=== PATIENT | male | born 1950 | race Caucasian/White ===

== ENCOUNTER 2018-01-22 15:44 | Emergency (ER) | payer MEDICARE, BC ==
[~2018-01-22] VITALS: Ht 180.3 cm; Wt 86.2 kg
[~2018-01-22 15:44] MED LIST: ASPI-630 PO; ATOR40TA59 PO; BENA10TA4 PO; CYCL10TA2 PO; DOCU-109 PO; HYDR-2679 PO; INSU100C SQ; INSU100V8 SQ; METF500T16 PO; METO-239 PO; METO-269 PO; OMEG300C PO; RIVA20TA2 PO; SAXA5TAB PO
[2018-01-22] MEDS ORDERED: LIDOCAINE 1% PF 2 ML VIAL. INJ ONE (16:30)
[2018-01-22] MEDS ORDERED: cefTRIAXone IM 1 GM VIAL IM ONE (16:30)
--- NOTE | 2018-01-22 16:52 | PHYS DOC ---
Past Medical History Past Medical History: A-Fib, CAD, Diabetes-Type II, High Cholesterol, Hypertension, Other Additional Past Medical Histor: DDD Past Surgical History: Coronary Bypass Surgery, Other Additional Past Surgical Histo: CARDIAC STENTS 2007 Alcohol Use: None Drug Use: None Adult General Chief Complaint Chief Complaint: HAND PROBLEM HPI HPI Patient is a 67 year old male with history of A. fib, hypertension, COPD, diabetes type 2, who presents today with infection along the right thumb. Patient states 3 weeks ago he caught his right hand in a marlene trap. He states he was seen at urgent care after the incident and was given a tetanus shot. He states yesterday he noted redness along his right thumb. Patient states the area is warm. Denies any drainage from the area. Patient is left-handed. Review of Systems Review of Systems Constitutional: Denies fever or chills [] Eyes: Denies change in visual acuity, redness, or eye pain [] HENT: Denies nasal congestion or sore throat [] Respiratory: Denies cough or shortness of breath [] Cardiovascular: No additional information not addressed in HPI [] GI: Denies abdominal pain, nausea, vomiting, bloody stools or diarrhea [] : Denies dysuria or hematuria [] Musculoskeletal: Denies back pain or joint pain [] Integument: Denies rash or skin lesions [] Neurologic: Denies headache, focal weakness or sensory changes [] Endocrine: Denies polyuria or polydipsia [] All other systems were reviewed and found to be within normal limits, except as documented in this note. Current Medications Current Medications Current Medications Medications (Trade) Dose Ordered Sig/Mega Start Time Stop Time Status Last Admin Dose Admin Ceftriaxone Sodium (Rocephin Im) 1 gm 1X ONCE 01/22/18 16:30 01/22/18 16:31 DC 01/22/18 16:35 1 GM Lidocaine HCl (Xylocaine-Mpf 1% 2ml Vial) 2 ml 1X ONCE 01/22/18 16:30 01/22/18 16:31 DC 01/22/18 16:35 2 ML Allergies Allergies Allergies Coded Allergies Type Severity Reaction Last Updated Verified I S O L A T I O N *CONTACT* Allergy Unknown 02/27/16 Yes No Known Medication Allergies Allergy Unknown 02/27/16 Yes Physical Exam Physical Exam Constitutional: Well developed, well nourished, no acute distress, non-toxic appearance. [] HENT: Normocephalic, atraumatic, bilateral external ears normal, oropharynx moist, no oral exudates, nose normal. [] Eyes: PERRLA, EOMI, conjunctiva normal, no discharge. [] Neck: Normal range of motion, no tenderness, supple, no stridor. [] Cardiovascular:Heart rate regular rhythm, no murmur [] Lungs & Thorax: Bilateral breath sounds clear to auscultation [] Abdomen: Bowel sounds normal, soft, no tenderness, no masses, no pulsatile masses. [] Skin: Right lateral thumb with mild cellulitis especially mid for next. There is a couple bruised areas on the lateral aspect of the thumb that are likely the source of cellulitis. Patient has full range of motion to the right thumb including flexion and extension at all the joints. The area feels warm. There is no abscess/fluctuance to the area. Adequate radial sensation to the right thumb. +2 right radial pulse. Back: No tenderness, no CVA tenderness. [] Extremities: No tenderness, no cyanosis, no clubbing, ROM intact, no edema. [] Neurologic: Alert and oriented X 3, normal motor function, normal sensory function, no focal deficits noted. [] Psychologic: Affect normal, judgement normal, mood normal. [] Current Patient Data Vital Signs Vital Signs Date Time Temp Pulse Resp B/P (MAP) Pulse Ox O2 Delivery O2 Flow Rate FiO2 01/22/18 17:10 101 20 164/100 (121) 99 01/22/18 15:58 98.2 Room Air 98.2 EKG EKG [] Radiology/Procedures Radiology/Procedures []PROCEDURE: HAND RIGHT 3V Examination: 3 views of the right hand HISTORY: History of cellulitis in the thumb COMPARISON: None available FINDINGS: The alignment of the metacarpophalangeal joints, carpometacarpal joint, interphalangeal joints grossly appears unremarkable. There is no acute fracture or dislocation identified. IMPRESSION: No acute osseous findings. Electronically signed by: Van Ji MD (01/22/2018 5:00 PM) [facility] DICTATED and SIGNED BY: VAN JI MD DATE: 01/22/18 8167 Course & Med Decision Making Course & Med Decision Making Pertinent Labs and Imaging studies reviewed. (See chart for details) This is a 67-year-old male patient presenting to the ED with a cellulitis along his right thumb that began yesterday. 3 weeks ago patient got his right hand caught in mole trap. He was seen at urgent care and given antibiotics. Vitals on arrival blood pressure 181/94, patient has history of hypertension, reminded to make sure she is taking his medications, temp 98.2, heart rate 99, O2 sats 100% on room air. Right hand x-rays interpreted by radiologist are negative for any acute findings. Patient is afebrile in the ED. He was given Rocephin 1 g. Patient was discharged on clindamycin. Instructed to keep the area clean and dry. Follow-up with PCP in 1-2 weeks. Dragon Disclaimer Dragon Disclaimer This electronic medical record was generated, in whole or in part, using a voice recognition dictation system. Departure Departure Impression: Primary Impression: Cellulitis of finger of right hand Additional Impression: Accelerated hypertension Disposition: 01 HOME, SELF-CARE Condition: STABLE Referrals: YANDY GUERRERO Jr, MD (PCP) Follow-up with your doctor in 1-2 weeks Patient Instructions: Cellulitis, [id number], Hypertension Additional Instructions: You were evaluated in the emergency room as noted to have cellulitis of the right hand. We put you on antibiotics. Ensure you complete them. Ensure you take your antibiotics to completion. Ensure you are talking antibiotics. Scripts Clindamycin Hcl (CLINDAMYCIN HCL) 150 Mg Capsule 3 CAP PO TID, #90 CAP Prov: ANGELITO MESA APRN 01/22/18 Problem Qualifiers ANGELITO MESA APRN Jan 22, 2018 16:52
--- NOTE | 2018-01-22 17:04 | RAD ---
Examination: 3 views of the right hand HISTORY: History of cellulitis in the thumb COMPARISON: None available FINDINGS: The alignment of the metacarpophalangeal joints, carpometacarpal joint, interphalangeal joints grossly appears unremarkable. There is no acute fracture or dislocation identified. IMPRESSION: No acute osseous findings. Electronically signed by: Van Ji MD (01/22/2018 5:00 PM) [facility]
[2018-01-22 17:10] VITALS: BP 164/100
[2018-01-22] MEDS ORDERED: CLIN150C14 PO (17:14)
== END 2018-01-22 17:45 | disposition home or self-care (01) ==
LOC: ER 15:44
DX: L03.011 Cellulitis of right finger (principal); I10 Essential (primary) hypertension; I48.91 Unspecified atrial fibrillation; I25.10 Atherosclerotic heart disease of native coronary artery without angina pectoris; E78.00 Pure hypercholesterolemia, unspecified; E11.9 Type 2 diabetes mellitus without complications; Z95.5 Presence of coronary angioplasty implant and graft; Z95.1 Presence of aortocoronary bypass graft; Z91.041 Radiographic dye allergy status
CPT/HCPCS: 73130; 96372; 99284; J0696

== ENCOUNTER → 2018-04-12 | Outpatient (CLI) | payer BC, MEDICARE ==
[~2018-04-12] MED LIST changes: +CLIN150C14 PO
--- NOTE | 2018-04-12 14:49 | CARD ---
MR#: [id number] Date of Study: 04/12/2018 Ordering Physician: TONYA SANTOYO, Referring Physician: TONYA SANTOYO, Tech: Elizabeth Wilson [facility] APPROVED REPORT EXAM: Two-dimensional and M-mode echocardiogram with Doppler and color Doppler. Other Information Quality : AverageHR: 85bpm Rhythm : Atrial Fibrillation INDICATION Cardiomyopathy 2D DIMENSIONS RVDd3.3 (2.9-3.5cm)Left Atrium(2D)4.5 (1.6-4.0cm) IVSd1.6 (0.7-1.1cm)Aortic Root(2D)3.1 (2.0-3.7cm) LVDd4.5 (3.9-5.9cm)LVOT Diameter2.0 (1.8-2.4cm) PWd1.0 (0.7-1.1cm)LVDs3.3 (2.5-4.0cm) FS (%) 26.0 %SV47.3 ml LVEF(%)50.0 (>50%) M-Mode DIMENSIONS Left Atrium(MM)5.04 (2.5-4.0cm)Aortic Root3.49 (2.2-3.7cm) Aortic Valve AoV Peak Bossman.137.5cm/sAoV VTI25.0cm AO Peak GR.7.6mmHgLVOT Peak Bossman.79.5cm/s AO Mean GR.4mmHgAVA (VMAX)1.87cm2 HUMZA (VTI)1.90cm2 Mitral Valve MV E Fxruapft760.5cm/sMV DECEL WAAU892in MV A Zjkqhpmg08.4cm/sE/A Ratio4.3 MV A Uzuhnpht203ol Pulmonary Valve PV Peak Izhefsba79.2cm/s Tricuspid Valve TR P. Ndlbwvpk311uy/sRAP QSMHWOCX2nhUo TR Peak Gr.51yjClWENX30qkBz LEFT VENTRICLE The left ventricle is normal size. Proximal septal thickening is noted. Left ventricle systolic funct ion is mildly impaired. The Ejection Fraction is 45%. RIGHT VENTRICLE The right ventricle is mildly dilated. There is normal right ventricular wall thickness. Systolic fun ction is mildly reduced. ATRIA The left atrium is moderately dilated. The right atrium is moderately dilated. The interatrial septum is intact with no evidence for an atrial septal defect or patent foramen ovale as noted on 2-D or Do ppler imaging. AORTIC VALVE The aortic valve is calcified but opens well. The aortic valve is trileaflet. Doppler and Color Flow revealed no significant aortic regurgitation. There is no significant aortic valvular stenosis. MITRAL VALVE The mitral valve is normal in structure and function. There is no evidence of mitral valve prolapse. There is no mitral valve stenosis. Doppler and Color-flow revealed trace mitral regurgitation. TRICUSPID VALVE The tricuspid valve is normal in structure and function. Doppler and Color Flow revealed trace tricus pid regurgitation. The PA pressure was estimated at 24 mmHg. There is no tricuspid valve prolapse or vegetation. There is no tricuspid valve stenosis. PULMONIC VALVE Pulmonic valve not well visualized. Doppler and Color Flow revealed no pulmonic valvular regurgitatio n. There is no pulmonic valvular stenosis. GREAT VESSELS The aortic root is normal in size. The ascending aorta is normal in size. The IVC is normal in size a nd collapses >50% with inspiration. PERICARDIAL EFFUSION There is no evidence of significant pericardial effusion. Critical Notification Critical Value: No <Conclusion> Left ventricle systolic function is mildly impaired. The Ejection Fraction is 45%. The left atrium is moderately dilated. Trace mitral regurgitation. Trace tricuspid regurgitation. The PA pressure was estimated at 24 mmHg. There is no evidence of significant pericardial effusion. Signed by : Pawan Keith, Electronically Approved : 04/12/2018 14:47:23
== END | disposition home or self-care (01) ==
LOC: ECHO 13:34
PROVIDERS: ATTEND Internal Medicine Cardiovascular Disease
DX: I25.5 Ischemic cardiomyopathy (principal)
CPT/HCPCS: 93306

== ENCOUNTER 2018-08-23 17:15 | Inpatient (IN) | payer MEDICARE ==
[~2018-08-23] VITALS: Ht 180.3 cm; Wt 91.3 kg
[2018-08-23] MEDS ORDERED: dilTIAZem IV PUSH 25 MG/5 ML VIAL ONE (19:18)
--- NOTE | 2018-08-23 19:27 | PHYS DOC ---
Past Medical History Past Medical History: A-Fib, CAD, Diabetes-Type II, High Cholesterol, Hypertension, Other Additional Past Medical Histor: DDD (CIRO TITUS APRN) Past Surgical History: Coronary Bypass Surgery, Tonsillectomy, Other Additional Past Surgical Histo: CARDIAC STENTS 2008, BACK SURGERY (CIRO TITUS APRN) Alcohol Use: Sober Drug Use: None (CIRO TITUS APRN) Adult General Chief Complaint Chief Complaint: DYSPNEA/RESPIRATOY DISTRESS HPI HPI 67-year-old male presents to ER via POV for complaints of sudden onset of tremors and feeling shaky and fatigued. Patient states he has felt short of air over the past few days with any type of exertion. Patient is denying any chest pain or palpitations currently. He reports over past few days he has had some rt side rib pain radiating into rt side chest. Patient denies any recent illness. Patient states he has had a triple bypass and he is on daily Xarelto and baby aspirin. Patient states he does have history of A. fib. Pt's accu check at triage was 85. (CIRO TITUS APRN) Review of Systems Review of Systems Constitutional: Denies fever or chills [] Eyes: Denies change in visual acuity, redness, or eye pain [] HENT: Denies nasal congestion or sore throat [] Respiratory: Denies cough. Reports SOA which has been gradually worsening- increases with exertion Cardiovascular: Denies CP currently- states over past few days has had some rt rib pain radiating into rt side chest. Denies palpitations GI: Denies abdominal pain, nausea, vomiting, bloody stools or diarrhea [] : Denies dysuria or hematuria [] Musculoskeletal: Denies back/neck pain or joint pain [] Integument: Denies rash or skin lesions [] Neurologic: Denies headache, focal weakness or sensory changes. Reports he has tremors however tonight has increased uncontrollable tremors in upper extremities Endocrine: Denies polyuria or polydipsia [] All other systems were reviewed and found to be within normal limits, except as documented in this note. (CIRO TITUS APRN) Current Medications Current Medications Current Medications Medications (Trade) Dose Ordered Sig/Mega Start Time Stop Time Status Last Admin Dose Admin Diltiazem HCl (Cardizem Iv Push) 25 mg STK-MED ONCE 08/23/18 19:18 08/23/18 19:19 DC Diltiazem HCl 125 mg/Dextrose 125 ml @ 5 mls/hr CONT PRN 08/23/18 19:30 08/24/18 09:13 DC (KARLA TRACEY MD) Allergies Allergies Allergies Coded Allergies Type Severity Reaction Last Updated Verified I S O L A T I O N *CONTACT* Allergy Unknown 02/27/16 Yes No Known Medication Allergies Allergy Unknown 02/27/16 Yes (KARLA TRACEY MD) Physical Exam Physical Exam Constitutional: Well developed, well nourished, mild distress- pt appears anxious/tense and has tremors in upper extremities, non-toxic appearance. [] HENT: Normocephalic, atraumatic, oropharynx moist, no oral exudates, nose normal. [] Eyes: PERRLA, no nystagmus, conjunctiva normal, no discharge. [] Neck: Normal range of motion, no tenderness/crepitus, supple, no stridor. Trachea midline Cardiovascular: Tachycardic heart rate irregular rhythm, no murmur [] Lungs & Thorax: Bilateral breath sounds clear to auscultation- less air movement in bases. Resp. equal/nonlabored. Pt speaking in full sentences Abdomen: Bowel sounds normal, soft, no tenderness/rigidity/distention, no masses, no pulsatile masses. [] Skin: Warm, dry, no erythema, no rash. [] Back: No tenderness, no CVA tenderness. [] Extremities: No tenderness, no cyanosis, no clubbing, ROM intact, no edema. 2+ bilat. radial. 2+ bilat. dorsalis pedis/posterior tibial Neurologic: Alert and oriented X 3, normal motor function, normal sensory function, no focal deficits noted. Bilat. upper extremity tremors- no contractions in hands or skin discoloration Psychologic: Affect normal, judgement normal, appears anxious/tense (REFFITTCIRO APRN) Current Patient Data Vital Signs Vital Signs Date Time Temp Pulse Resp B/P (MAP) Pulse Ox O2 Delivery O2 Flow Rate FiO2 08/23/18 18:41 97.8 119 20 199/87 (124) 95 Room Air 97.8 (KARLA TRACEY MD) Lab Values Laboratory Tests Test 08/23/18 17:41 08/23/18 18:20 Glucose (Fingerstick) 85 mg/dL (70-99) Prothrombin Time 21.0 SEC (11.7-14.0) H Prothrombin Time INR 1.8 (0.8-1.1) H PTT 36 SEC (24-38) Sodium Level 139 mmol/L (136-145) Potassium Level 3.8 mmol/L (3.5-5.1) Chloride Level 104 mmol/L (98-107) Carbon Dioxide Level 27 mmol/L (21-32) Anion Gap 8 (6-14) Blood Urea Nitrogen 22 mg/dL (8-26) Creatinine 1.0 mg/dL (0.7-1.3) Estimated GFR (Cockcroft-Gault) 74.5 BUN/Creatinine Ratio 22 (6-20) H Glucose Level 93 mg/dL (70-99) Calcium Level 9.3 mg/dL (8.5-10.1) Total Bilirubin 0.8 mg/dL (0.2-1.0) Aspartate Amino Transferase (AST) 24 U/L (15-37) Alanine Aminotransferase (ALT) 16 U/L (16-63) Alkaline Phosphatase 142 U/L (46-116) H Troponin I Quantitative 0.043 ng/mL (0.000-0.055) LT-Bgs-W-Type Natriuretic Peptide 3906 pg/mL (0-124) H Total Protein 7.4 g/dL (6.4-8.2) Albumin 3.7 g/dL (3.4-5.0) Albumin/Globulin Ratio 1.0 (1.0-1.7) Laboratory Tests 08/23/18 18:20 (KARLA TRACEY MD) Lab Values Laboratory Tests Test 08/23/18 17:41 08/23/18 18:20 Glucose (Fingerstick) 85 mg/dL (70-99) Prothrombin Time 21.0 SEC (11.7-14.0) H Prothrombin Time INR 1.8 (0.8-1.1) H PTT 36 SEC (24-38) Sodium Level 139 mmol/L (136-145) Potassium Level 3.8 mmol/L (3.5-5.1) Chloride Level 104 mmol/L (98-107) Carbon Dioxide Level 27 mmol/L (21-32) Anion Gap 8 (6-14) Blood Urea Nitrogen 22 mg/dL (8-26) Creatinine 1.0 mg/dL (0.7-1.3) Estimated GFR (Cockcroft-Gault) 74.5 BUN/Creatinine Ratio 22 (6-20) H Glucose Level 93 mg/dL (70-99) Calcium Level 9.3 mg/dL (8.5-10.1) Total Bilirubin 0.8 mg/dL (0.2-1.0) Aspartate Amino Transferase (AST) 24 U/L (15-37) Alanine Aminotransferase (ALT) 16 U/L (16-63) Alkaline Phosphatase 142 U/L (46-116) H Troponin I Quantitative 0.043 ng/mL (0.000-0.055) ZP-Pxg-X-Type Natriuretic Peptide 3906 pg/mL (0-124) H Total Protein 7.4 g/dL (6.4-8.2) Albumin 3.7 g/dL (3.4-5.0) Albumin/Globulin Ratio 1.0 (1.0-1.7) Laboratory Tests 08/23/18 18:20 (CIRO TITUS APRN) EKG EKG EKG obtained 08/23/18 at [address] Tracey Afib w/RVR Rate 127 No STEMI (CIRO TITUS APRN) Course & Med Decision Making Course & Med Decision Making Pertinent Labs and Imaging studies reviewed. (See chart for details) 1920: Heart rate 130s to 140s with blood pressure 225/96. Patient's case and plan of care was discussed with Dr. Tracey. Patient will receive IV Cardizem bolus 10 mg and be started on Cardizem drip per protocol. Patient has continued to deny any chest pain. Test results were discussed pt and his - EKG with no acute ST elevation/STEMI and troponin 0.043; BNP up at 3906. H&H 8.1/27.9- pt denying any dark tarry or bloody stools. Dr. Tracey viewed pt's chest xray possible sm. bilat. effusions otherwise no other obvious acute findings. 2030: Spoke with Dr. Ruiz, hospitalist and discussed patient's case and admit plan. Will admit to their services for further care and consult cardiology with admit orders. Discussed admission plan and test results with patient and his family. Patient continues to deny any chest pain or palpitations. Heart rate improved to 88-100 remains irregular- remains on Cardizem drip with blood pressure 176/77 O2 saturation 97%. Patient is denying any shortness of air. Pt's shakes have subsided and he is in no distress with family at bedside. Patient is agreeable with admit plan as discussed. (CIRO TITUS APRN) Course & Med Decision Making Staff Physician Addendum: I was working in the ER during the course of this patient's visit. I was available for consultation as needed, but I was not directly involved in the care of this patient. (KARLA TRACEY MD) Dragon Disclaimer Dragon Disclaimer This electronic medical record was generated, in whole or in part, using a voice recognition dictation system. (CIRO TITUS APRN) Departure Departure Impression: Primary Impression: Atrial fibrillation with RVR Additional Impression: Dyspnea Disposition: 09 ADMITTED INPATIENT Admitting Physician: Margie Ruiz (CIRO TITUS APRN) Condition: STABLE Referrals: BERE BALLARD MD (PCP) Scripts Potassium Chloride (POTASSIUM CHLORIDE) 20 Meq Tablet.er 20 MEQ PO DAILY for CHF for 30 Days, #30 TAB.SR Prov: DINORAH DIALLO MD 08/27/18 Furosemide (LASIX) 40 Mg Tablet 1 TAB PO DAILY for CHF for 30 Days, #30 TAB 1 Refill Prov: DINORAH DIALLO MD 08/27/18 Metformin Hcl (GLUCOPHAGE XR) 500 Mg Tab.er.24h 1000 MG PO HS for DM2 for 30 Days, #60 TAB.SR Prov: DINORAH DIALLO MD 08/27/18 Metoprolol Succinate (TOPROL XL) 50 Mg Tab.er.24h 75 MG PO DAILY for htn for 30 Days, #45 TAB 5 Refills Prov: DINORAH DIALLO MD 08/27/18 Problem Qualifiers CIRO TITUS APRN Aug 23, 2018 19:27 KARLA TRACEY MD September 04, 2018 23:43
[2018-08-23] MEDS ORDERED: dilTIAZem INJ 125 MG in IV DEXTROSE 5% 100ML 100 ML IV PRN (19:30)
[2018-08-23 19:31] LABS: ALBUMIN 3.7 g/dL (3.4-5.0); CALCIUM 9.3 mg/dL (8.5-10.1); TOTAL PROTEIN 7.4 g/dL (6.4-8.2)
[2018-08-23 19:32] LABS: GFR 74.5; POTASSIUM 3.8 mmol/L (3.5-5.1); TOTAL BILIRUBIN 0.8 mg/dL (0.2-1.0)
[2018-08-23] MEDS ORDERED: dilTIAZem IV PUSH 25 MG/5 ML VIAL IVP ONE (19:45)
[2018-08-23 20:51] LABS: BASO # 0.1 x10^3/uL (0.0-0.2); BASO % 1 % (0-3); EOS % 0 % (0-3); HEMATOCRIT 27.9 % (39.0-53.0); HEMOGLOBIN 8.1 g/dL (13.0-17.5); LYMPH # 0.5 x10^3/uL (1.0-4.8); LYMPH % 6 % (24-48); MEAN CORPUSCULAR HEMOGLOBIN 19 pg (25-35); MEAN CORPUSCULAR HGB CONC 29 g/dL (31-37); MEAN CORPUSCULAR VOLUME 65 fL (79-100); MONO # 0.4 x10^3/uL (0.0-1.1); MONO % 5 % (0-9); NEUT # 7.2 x10^3uL (1.8-7.7); NEUT % 88 % (31-73); PLATELET COUNT 260 x10^3/uL (140-400); RED BLOOD COUNT 4.26 x10^6/uL (4.30-5.70); RED CELL DISTRIBUTION WIDTH 18.1 % (11.5-14.5); WHITE BLOOD COUNT 8.2 x10^3/uL (4.0-11.0)
[2018-08-23 21:39] LABS: % LYMPHS 4 % (24-48); % MONOS 3 % (0-10); % SEGS 93 % (35-66); PLT ESTIMATE ADEQUATE (ADEQUATE)
[2018-08-23 21:41] LABS: ANISOCYTOSIS SLIGHT; MICROCYTOSIS MOD
[2018-08-23 21:42] LABS: HYPOCHROMIA SLIGHT
--- NOTE | 2018-08-23 22:00 | NUR ---
Pt was admitted from ER with c/o SOB x 2 days, when to urgent care and was instructed to come to the hospital. Pt is A/Ox4, on RA, up with standby r/t IV cardizem gtt. Pt is AFIB, rate controlled on telemetry, currently has cardizem gtt running at 10 ml/hr, will titrate r/t b/p response. Linnea at bedside, med rec and H&P completed, Dr. Ruiz at bedside, POC d/w with pt, meds restarted, call light within reach, be in low/locked position, VSS, will continue to monitor for status changes.
[2018-08-23 22:30] VITALS: BP 153/75
[2018-08-23 23:00] VITALS: BP 159/80
--- NOTE | 2018-08-23 23:07 | PDOC1 ---
History and Physical Date of Admission Date of Admission DATE: 08/23/18 TIME: 23:04 Source Source: Chart review, Patient History of Present Illness History of Present Illness Reed is a 67-year-old male admit for worsening shortnessof breath over days, and he was markedly weak and shaky today. noted dyspnea with activity for almost a week. Patient is denying any chest pain or palpitations. Patient denies any recent illness. Patient states he does have history of A. fib. he has a new primary care that he cannot recall tonight he is retired from working at [employer] for over 10 years Social History Smoke: No ALCOHOL: none Current Problem List Problem List Problems Medical Problems: (1) Atrial fibrillation with RVR Status: Acute (2) Dyspnea Status: Acute Current Medications Current Medications Current Medications Diltiazem HCl (Cardizem Iv Push) 10 mg 1X ONCE IVP ; Start 08/23/18 at 19:45; Stop 08/23/18 at 19:46; Status DC Diltiazem HCl 125 mg/Dextrose 125 ml @ 5 mls/hr CONT PRN IV SEE I/O RECORD; Start 08/23/18 at 19:30 Diltiazem HCl (Cardizem Iv Push) 25 mg STK-MED ONCE .ROUTE ; Start 08/23/18 at 19:18; Stop 08/23/18 at 19:19; Status DC Diltiazem HCl (Cardizem) 60 mg Q8HRS PO ; Start 08/23/18 at 23:15; Status UNV Active Scripts Active Clindamycin Hcl 150 Mg Capsule 3 Cap PO TID Cyclobenzaprine Hcl 10 Mg Tablet 10 Mg PO TID Colace (Docusate Sodium) 100 Mg Capsule 100 Mg PO BID Lortab 7.5-325 mg Tablet (Hydrocodone/Acetaminophen) 1 Each Tablet 1 Tab PO PRN Q6HRS PRN Reported Metformin Hcl 500 Mg Tablet 1 Tab PO BID Fish Oil ([place]-3 Fatty Acids) 300 Mg Capsule 1,200 Mg PO Aspirin 81 Mg Tab.chew 81 Mg PO DAILY Xarelto (Rivaroxaban) 20 Mg Tablet 15 Mg PO Benazepril Hcl 10 Mg Tablet 10 Mg PO DAILY Toprol Xl (Metoprolol Succinate) 50 Mg Tab.er.24h 50 Mg PO BID Atorvastatin Calcium 40 Mg Tablet 40 Mg PO DAILY Humalog (Insulin Lispro) 100 Unit/1 Ml Cartridge 20 Unit SQ TID Allergies Allergies: Coded Allergies: I S O L A T I O N *CONTACT* (Verified Allergy, Unknown, 02/27/16) mrsa No Known Medication Allergies (Verified Allergy, Unknown, 02/27/16) ROS General: YES: Fatigue, Malaise; No: Chills, Night Sweats, Appetite, Other PSYCHOLOGICAL ROS: No: Anxiety, Behavioral Disorder, Concentration difficultie, Decreased libido, Depression, Disorientation, Hallucinations, Hostility, Irritablity, Memory difficulties, Mood Swings, Obsessive thoughts, Suicidal ideation, Other Eyes: No Blurry vision, No Decreased vision, No Double vision, No Dry eyes, No Excessive tearing, No Eye Pain, No Itchy Eyes, No Loss of vision, No Photophobia, No Scotomata, No Uses contacts, No Uses glasses, No Other HEENT: No: Heacaches, Visual Changes, Hearing change, Nasal congestion, Nasal discharge, Oral lesions, Sinus pain, Sore Throat, Epistaxis, Sneezing, Snoring, Tinnitus, Vertigo, Vocal changes, Other Respiratory: YES: Shortness of breath, SOB with excertion; No: Cough, Hemoptysis, Orthopnea, Pleuritic Pain, Sputum Changes, Stridor, Tachypnea, Wheezing, Other Cardiovascular: No Chest Pain, No Palpitations, No Orthopnea, No Paroxysmal Noc. Dyspnea, No Edema, No Lt Headedness, No Other Gastrointestinal: No Nausea, No Vomiting, No Abdominal Pain, No Diarrhea, No Constipation, No Melena, No Hematochezia, No Other Genitourinary: No Dysuria, No Frequency, No Incontinence, No Hematuria, No Retention, No Discharge, No Urgency, No Pain, No Flank Pain, No Other, No , No , No , No , No , No , No Musculoskeletal: Yes Muscular Weakness; No Gait Disturbance, No Joint Pain, No Joint Stiffness, No Joint Swelling, No Muscle Pain, No Pain In:, No Swelling In:, No Other Neurological: No Behavorial Changes, No Bowel/Bladder ControlChng, No Co nfusion, No Dizziness, No Gait Disturbance, No Headaches, No Impaired Coord/balance, No Memory Loss, No Numbness/Tingling, No Seizures, No Speech Problems, No Tremors, No Visual Changes, No Weakness, No Other Skin: No Dry Skin, No Eczema, No Hair Changes, No Lumps, No Mole Changes, No Mottling, No Nail Changes, No Pruritus, No Rash, No Skin Lesion Changes, No Other, No Acne Physical Exam General: Alert, Cooperative, No acute distress, mild distress HEENT: Atraumatic Lungs: Clear to auscultation Abdomen: Normal bowel sounds Rectal Exam: not examined Extremities: No cyanosis Skin: No significant lesion Neuro: Normal speech, Normal tone Psych/Mental Status: Mood NL Vitals Vitals Vital Signs Date Time Temp Pulse Resp B/P (MAP) Pulse Ox O2 Delivery O2 Flow Rate FiO2 08/23/18 18:41 97.8 119 20 199/87 (124) 95 Room Air 97.8 Labs Labs Laboratory Tests Test 08/23/18 18:20 08/23/18 20:45 08/23/18 22:11 Sodium Level 139 mmol/L (136-145) Potassium Level 3.8 mmol/L (3.5-5.1) Chloride Level 104 mmol/L (98-107) Carbon Dioxide Level 27 mmol/L (21-32) Anion Gap 8 (6-14) Blood Urea Nitrogen 22 mg/dL (8-26) Creatinine 1.0 mg/dL (0.7-1.3) Estimated GFR (Cockcroft-Gault) 74.5 BUN/Creatinine Ratio 22 (6-20) Glucose Level 93 mg/dL (70-99) Calcium Level 9.3 mg/dL (8.5-10.1) Total Bilirubin 0.8 mg/dL (0.2-1.0) Aspartate Amino Transf (AST/SGOT) 24 U/L (15-37) Alanine Aminotransferase (ALT/SGPT) 16 U/L (16-63) Alkaline Phosphatase 142 U/L (46-116) Troponin I Quantitative 0.043 ng/mL (0.000-0.055) PH-Lpo-L-Type Natriuretic Peptide 3906 pg/mL (0-124) Total Protein 7.4 g/dL (6.4-8.2) Albumin 3.7 g/dL (3.4-5.0) Albumin/Globulin Ratio 1.0 (1.0-1.7) White Blood Count 8.2 x10^3/uL (4.0-11.0) Red Blood Count 4.26 x10^6/uL (4.30-5.70) Hemoglobin 8.1 g/dL (13.0-17.5) Hematocrit 27.9 % (39.0-53.0) Mean Corpuscular Volume 65 fL (79-100) Mean Corpuscular Hemoglobin 19 pg (25-35) Mean Corpuscular Hemoglobin Concent 29 g/dL (31-37) Red Cell Distribution Width 18.1 % (11.5-14.5) Platelet Count 260 x10^3/uL (140-400) Neutrophils (%) (Auto) 88 % (31-73) Lymphocytes (%) (Auto) 6 % (24-48) Monocytes (%) (Auto) 5 % (0-9) Eosinophils (%) (Auto) 0 % (0-3) Basophils (%) (Auto) 1 % (0-3) Neutrophils # (Auto) 7.2 x10^3uL (1.8-7.7) Lymphocytes # (Auto) 0.5 x10^3/uL (1.0-4.8) Monocytes # (Auto) 0.4 x10^3/uL (0.0-1.1) Eosinophils # (Auto) 0.0 x10^3/uL (0.0-0.7) Basophils # (Auto) 0.1 x10^3/uL (0.0-0.2) Segmented Neutrophils % 93 % (35-66) Lymphocytes % 4 % (24-48) Monocytes % 3 % (0-10) Platelet Estimate Adequate (ADEQUATE) Hypochromasia Slight Anisocytosis Slight Microcytosis Mod Glucose (Fingerstick) 148 mg/dL (70-99) Laboratory Tests Test 08/23/18 18:20 08/23/18 20:45 08/23/18 22:11 Sodium Level 139 mmol/L (136-145) Potassium Level 3.8 mmol/L (3.5-5.1) Chloride Level 104 mmol/L (98-107) Carbon Dioxide Level 27 mmol/L (21-32) Anion Gap 8 (6-14) Blood Urea Nitrogen 22 mg/dL (8-26) Creatinine 1.0 mg/dL (0.7-1.3) Estimated GFR (Cockcroft-Gault) 74.5 BUN/Creatinine Ratio 22 (6-20) Glucose Level 93 mg/dL (70-99) Calcium Level 9.3 mg/dL (8.5-10.1) Total Bilirubin 0.8 mg/dL (0.2-1.0) Aspartate Amino Transf (AST/SGOT) 24 U/L (15-37) Alanine Aminotransferase (ALT/SGPT) 16 U/L (16-63) Alkaline Phosphatase 142 U/L (46-116) Troponin I Quantitative 0.043 ng/mL (0.000-0.055) EN-Drr-P-Type Natriuretic Peptide 3906 pg/mL (0-124) Total Protein 7.4 g/dL (6.4-8.2) Albumin 3.7 g/dL (3.4-5.0) Albumin/Globulin Ratio 1.0 (1.0-1.7) White Blood Count 8.2 x10^3/uL (4.0-11.0) Red Blood Count 4.26 x10^6/uL (4.30-5.70) Hemoglobin 8.1 g/dL (13.0-17.5) Hematocrit 27.9 % (39.0-53.0) Mean Corpuscular Volume 65 fL (79-100) Mean Corpuscular Hemoglobin 19 pg (25-35) Mean Corpuscular Hemoglobin Concent 29 g/dL (31-37) Red Cell Distribution Width 18.1 % (11.5-14.5) Platelet Count 260 x10^3/uL (140-400) Neutrophils (%) (Auto) 88 % (31-73) Lymphocytes (%) (Auto) 6 % (24-48) Monocytes (%) (Auto) 5 % (0-9) Eosinophils (%) (Auto) 0 % (0-3) Basophils (%) (Auto) 1 % (0-3) Neutrophils # (Auto) 7.2 x10^3uL (1.8-7.7) Lymphocytes # (Auto) 0.5 x10^3/uL (1.0-4.8) Monocytes # (Auto) 0.4 x10^3/uL (0.0-1.1) Eosinophils # (Auto) 0.0 x10^3/uL (0.0-0.7) Basophils # (Auto) 0.1 x10^3/uL (0.0-0.2) Segmented Neutrophils % 93 % (35-66) Lymphocytes % 4 % (24-48) Monocytes % 3 % (0-10) Platelet Estimate Adequate (ADEQUATE) Hypochromasia Slight Anisocytosis Slight Microcytosis Mod Glucose (Fingerstick) 148 mg/dL (70-99) VTE Prophylaxis Ordered VTE Prophylaxis Devices: No VTE Pharmacological Prophylaxi: Yes Assessment/Plan Assessment/Plan dyspnea on exertion acute diastolic CHF atrial fibrillation with RVR, admit on cardizem gtt, change to PO , CV consult microcytic anemia, check iron, retic, Dm2, check a1c, on insulin UMM BLAIR MD Aug 23, 2018 23:07
[2018-08-23] MEDS ORDERED: HYDROcodone/APAP 7.5/325MG 1 TAB TABLET PO PRN (23:15)
[2018-08-23] MEDS ORDERED: INSU100V8 SQ (23:26)
[2018-08-23] MEDS ORDERED: GABA600T7 PO (23:28)
[2018-08-23 23:30] VITALS: BP 154/71
[2018-08-23] MEDS ORDERED: DABIGATRAN ETEXILATE 150 MG CAPSULE. PO ONE (23:30)
[2018-08-23] MEDS ORDERED: POTASSIUM CHLORIDE 20 MEQ TABLET.ER. PO ONE (23:30)
[2018-08-23] MEDS ORDERED: METOPROLOL TART IMMED RELEASE 50 MG TABLET. PO ONE (23:30)
[2018-08-23] MEDS: dilTIAZem HCL 30 MG TABLET PO SCH (23:53)
[2018-08-24] VITALS (14 sets, daily range): BP systolic 102–162; BP diastolic 52–93
[2018-08-24] MEDS ORDERED: DEXTROSE 50% 25 GM / 50ML DISP.SYRIN. IV PRN (01:30)
[2018-08-24 04:47] LABS: BASO # 0.1 x10^3/uL (0.0-0.2); BASO % 1 % (0-3); EOS # 0.1 x10^3/uL (0.0-0.7); EOS % 2 % (0-3); HEMATOCRIT 27.7 % (39.0-53.0); HEMOGLOBIN 8.2 g/dL (13.0-17.5); LYMPH # 0.6 x10^3/uL (1.0-4.8); LYMPH % 9 % (24-48); MEAN CORPUSCULAR HEMOGLOBIN 19 pg (25-35); MEAN CORPUSCULAR HGB CONC 30 g/dL (31-37); MEAN CORPUSCULAR VOLUME 65 fL (79-100); MONO # 0.6 x10^3/uL (0.0-1.1); MONO % 9 % (0-9); NEUT % 79 % (31-73); PLATELET COUNT 244 x10^3/uL (140-400); RED BLOOD COUNT 4.26 x10^6/uL (4.30-5.70); RED CELL DISTRIBUTION WIDTH 18.8 % (11.5-14.5); WHITE BLOOD COUNT 6.3 x10^3/uL (4.0-11.0)
[2018-08-24 05:48] LABS: ALBUMIN 3.4 g/dL (3.4-5.0); CALCIUM 9.2 mg/dL (8.5-10.1); CREATININE 1.1 mg/dL (0.7-1.3); GFR 66.8; MAGNESIUM 1.9 mg/dL (1.8-2.4); POTASSIUM 4.4 mmol/L (3.5-5.1); TOTAL BILIRUBIN 0.6 mg/dL (0.2-1.0); TOTAL PROTEIN 6.9 g/dL (6.4-8.2)
[2018-08-24] MEDS: dilTIAZem HCL 30 MG TABLET PO SCH (06:00)
--- NOTE | 2018-08-24 07:36 | EKG ---
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 LEFTWARD AXIS QRS(T) CONTOUR ABNORMALITY CONSISTENT WITH POSSIBLE ANTEROSEPTAL INFARCT PROBABLY OLD Electronically Signed On 08-26-2018 9:46:51 CDT by Westley Gandhi
[2018-08-24] MEDS: INSULIN LISPRO 300 UNITS/3 ML INSULN.PEN. SQ SCH ×3 (08:00→17:48)
[2018-08-24] MEDS ORDERED: ONDANSETRON PF 4 MG/2 ML VIAL. IV PRN (08:15)
--- NOTE | 2018-08-24 08:17 | RAD ---
PORTABLE CHEST 1V History: Shortness of air Comparison: January 19, 2009 Findings: Single view of the chest is submitted. Pericardial cardiac silhouette is again enlarged. There again has been median sternotomy, fracture of second wire from superiorly now apparent. There are small pleural effusions bilaterally. There is diffuse hazy airspace opacity of the mid to inferior right hemithorax and right perihilar region, mild left base airspace airspace opacity. Impression: 1. There are small bilateral pleural effusions, also airspace opacity greater on the right with basilar predominance which may be due to edema, infiltrates not excluded. Constellation of findings may be due to left ventricular failure given the enlarged pericardial cardiac silhouette. Electronically signed by: Sukh Cisse MD (08/24/2018 8:14 AM) [id number]
[2018-08-24] MEDS ORDERED: DABIGATRAN ETEXILATE 150 MG CAPSULE. PO SCH (09:00)
[2018-08-24] MEDS ORDERED: METOPROLOL TART IMMED RELEASE 50 MG TABLET. PO SCH (09:00)
[2018-08-24] MEDS ORDERED: METOPROLOL TART IMMED RELEASE 25 MG TABLET. PO SCH (09:00)
[2018-08-24] MEDS ORDERED: METOPROLOL SUCCINATE 100 MG PO SCH (09:00)
[2018-08-24] MEDS: ASPIRIN CHEWABLE 81 MG TABLET. PO SCH (09:10)
[2018-08-24] MEDS: LISINOPRIL 10 MG TABLET PO SCH (09:11)
[2018-08-24] MEDS: OMEGA-3 FATTY ACIDS/FISH OIL 1,000 MG CAPSULE. PO SCH ×2 (09:11→21:37)
--- NOTE | 2018-08-24 09:22 | PDOC ---
PROGRESS NOTES Chief Complaint Chief Complaint Assessment/Plan Dyspnea on exertion - likely acute combined systolic and acute diastolic CHF - lasix IV x1 now Atrial fibrillation with RVR - off cardizem gtt, changed to PO , CV consult Microcytic anemia - iron low, will replace IV, likely needs w/u for GI bleed at some point Dm2 - check a1c, on insulin History of Present Illness History of Present Illness Reed is a 67-year-old male admit for worsening shortness of breath over days, and he was markedly weak and shaky today. noted dyspnea with activity for almost a week. Patient is denying any chest pain or palpitations. Patient denies any recent illness. Patient states he does have history of A. fib and CHF Overnight converted to sinus rhythm. Given oral diltiazem and metoprolol. He was a little short of breath this morning. Feels ok now. Plan: F/u cardiology recs, needs toprol XL or carvedilol for his CHF, will defer to cardiology recs on this Vitals Vitals Vital Signs Date Time Temp Pulse Resp B/P (MAP) Pulse Ox O2 Delivery O2 Flow Rate FiO2 08/24/18 09:11 47 109/57 08/24/18 08:00 Room Air 08/24/18 07:00 97.6 18 100 97.6 Physical Exam General: Alert, Cooperative, No acute distress, mild distress Abdomen: Normal bowel sounds Extremities: No cyanosis Skin: No significant lesion Labs LABS Laboratory Tests Test 08/23/18 18:20 08/23/18 20:45 08/23/18 22:11 08/24/18 03:05 Prothrombin Time 21.0 SEC (11.7-14.0) Prothromb Time International Ratio 1.8 (0.8-1.1) Activated Partial Thromboplast Time 36 SEC (24-38) Sodium Level 139 mmol/L (136-145) 142 mmol/L (136-145) Potassium Level 3.8 mmol/L (3.5-5.1) 4.4 mmol/L (3.5-5.1) Chloride Level 104 mmol/L (98-107) 106 mmol/L (98-107) Carbon Dioxide Level 27 mmol/L (21-32) 27 mmol/L (21-32) Anion Gap 8 (6-14) 9 (6-14) Blood Urea Nitrogen 22 mg/dL (8-26) 21 mg/dL (8-26) Creatinine 1.0 mg/dL (0.7-1.3) 1.1 mg/dL (0.7-1.3) Estimated GFR (Cockcroft-Gault) 74.5 66.8 BUN/Creatinine Ratio 22 (6-20) 19 (6-20) Glucose Level 93 mg/dL (70-99) 183 mg/dL (70-99) Calcium Level 9.3 mg/dL (8.5-10.1) 9.2 mg/dL (8.5-10.1) Total Bilirubin 0.8 mg/dL (0.2-1.0) 0.6 mg/dL (0.2-1.0) Aspartate Amino Transf (AST/SGOT) 24 U/L (15-37) 19 U/L (15-37) Alanine Aminotransferase (ALT/SGPT) 16 U/L (16-63) 20 U/L (16-63) Alkaline Phosphatase 142 U/L (46-116) 135 U/L (46-116) Troponin I Quantitative 0.043 ng/mL (0.000-0.055) FA-Jto-H-Type Natriuretic Peptide 3906 pg/mL (0-124) Total Protein 7.4 g/dL (6.4-8.2) 6.9 g/dL (6.4-8.2) Albumin 3.7 g/dL (3.4-5.0) 3.4 g/dL (3.4-5.0) Albumin/Globulin Ratio 1.0 (1.0-1.7) 1.0 (1.0-1.7) White Blood Count 8.2 x10^3/uL (4.0-11.0) 6.3 x10^3/uL (4.0-11.0) Red Blood Count 4.26 x10^6/uL (4.30-5.70) 4.26 x10^6/uL (4.30-5.70) Hemoglobin 8.1 g/dL (13.0-17.5) 8.2 g/dL (13.0-17.5) Hematocrit 27.9 % (39.0-53.0) 27.7 % (39.0-53.0) Mean Corpuscular Volume 65 fL (79-100) 65 fL (79-100) Mean Corpuscular Hemoglobin 19 pg (25-35) 19 pg (25-35) Mean Corpuscular Hemoglobin Concent 29 g/dL (31-37) 30 g/dL (31-37) Red Cell Distribution Width 18.1 % (11.5-14.5) 18.8 % (11.5-14.5) Platelet Count 260 x10^3/uL (140-400) 244 x10^3/uL (140-400) Neutrophils (%) (Auto) 88 % (31-73) 79 % (31-73) Lymphocytes (%) (Auto) 6 % (24-48) 9 % (24-48) Monocytes (%) (Auto) 5 % (0-9) 9 % (0-9) Eosinophils (%) (Auto) 0 % (0-3) 2 % (0-3) Basophils (%) (Auto) 1 % (0-3) 1 % (0-3) Neutrophils # (Auto) 7.2 x10^3uL (1.8-7.7) 5.0 x10^3uL (1.8-7.7) Lymphocytes # (Auto) 0.5 x10^3/uL (1.0-4.8) 0.6 x10^3/uL (1.0-4.8) Monocytes # (Auto) 0.4 x10^3/uL (0.0-1.1) 0.6 x10^3/uL (0.0-1.1) Eosinophils # (Auto) 0.0 x10^3/uL (0.0-0.7) 0.1 x10^3/uL (0.0-0.7) Basophils # (Auto) 0.1 x10^3/uL (0.0-0.2) 0.1 x10^3/uL (0.0-0.2) Segmented Neutrophils % 93 % (35-66) Lymphocytes % 4 % (24-48) Monocytes % 3 % (0-10) Platelet Estimate Adequate (ADEQUATE) Hypochromasia Slight Anisocytosis Slight Microcytosis Mod Glucose (Fingerstick) 148 mg/dL (70-99) Magnesium Level 1.9 mg/dL (1.8-2.4) Iron Level 9 ug/dL (65-175) Total Iron Binding Capacity 384 ug/dL (250-450) Iron Saturation 2 % (15-34) Thyroid Stimulating Hormone (TSH) 1.067 uIU/mL (0.358-3.74) Assessment and Plan Assessmemt and Plan Problems Medical Problems: (1) Atrial fibrillation with RVR Status: Acute (2) Dyspnea Status: Acute Comment Review of Relevant I have reviewed the following items yamilex (where applicable) has been applied. Labs Laboratory Tests Test 08/23/18 18:20 08/23/18 20:45 08/23/18 22:11 08/24/18 03:05 Prothrombin Time 21.0 SEC (11.7-14.0) Prothromb Time International Ratio 1.8 (0.8-1.1) Activated Partial Thromboplast Time 36 SEC (24-38) Sodium Level 139 mmol/L (136-145) 142 mmol/L (136-145) Potassium Level 3.8 mmol/L (3.5-5.1) 4.4 mmol/L (3.5-5.1) Chloride Level 104 mmol/L (98-107) 106 mmol/L (98-107) Carbon Dioxide Level 27 mmol/L (21-32) 27 mmol/L (21-32) Anion Gap 8 (6-14) 9 (6-14) Blood Urea Nitrogen 22 mg/dL (8-26) 21 mg/dL (8-26) Creatinine 1.0 mg/dL (0.7-1.3) 1.1 mg/dL (0.7-1.3) Estimated GFR (Cockcroft-Gault) 74.5 66.8 BUN/Creatinine Ratio 22 (6-20) 19 (6-20) Glucose Level 93 mg/dL (70-99) 183 mg/dL (70-99) Calcium Level 9.3 mg/dL (8.5-10.1) 9.2 mg/dL (8.5-10.1) Total Bilirubin 0.8 mg/dL (0.2-1.0) 0.6 mg/dL (0.2-1.0) Aspartate Amino Transf (AST/SGOT) 24 U/L (15-37) 19 U/L (15-37) Alanine Aminotransferase (ALT/SGPT) 16 U/L (16-63) 20 U/L (16-63) Alkaline Phosphatase 142 U/L (46-116) 135 U/L (46-116) Troponin I Quantitative 0.043 ng/mL (0.000-0.055) HK-Vlz-P-Type Natriuretic Peptide 3906 pg/mL (0-124) Total Protein 7.4 g/dL (6.4-8.2) 6.9 g/dL (6.4-8.2) Albumin 3.7 g/dL (3.4-5.0) 3.4 g/dL (3.4-5.0) Albumin/Globulin Ratio 1.0 (1.0-1.7) 1.0 (1.0-1.7) White Blood Count 8.2 x10^3/uL (4.0-11.0) 6.3 x10^3/uL (4.0-11.0) Red Blood Count 4.26 x10^6/uL (4.30-5.70) 4.26 x10^6/uL (4.30-5.70) Hemoglobin 8.1 g/dL (13.0-17.5) 8.2 g/dL (13.0-17.5) Hematocrit 27.9 % (39.0-53.0) 27.7 % (39.0-53.0) Mean Corpuscular Volume 65 fL (79-100) 65 fL (79-100) Mean Corpuscular Hemoglobin 19 pg (25-35) 19 pg (25-35) Mean Corpuscular Hemoglobin Concent 29 g/dL (31-37) 30 g/dL (31-37) Red Cell Distribution Width 18.1 % (11.5-14.5) 18.8 % (11.5-14.5) Platelet Count 260 x10^3/uL (140-400) 244 x10^3/uL (140-400) Neutrophils (%) (Auto) 88 % (31-73) 79 % (31-73) Lymphocytes (%) (Auto) 6 % (24-48) 9 % (24-48) Monocytes (%) (Auto) 5 % (0-9) 9 % (0-9) Eosinophils (%) (Auto) 0 % (0-3) 2 % (0-3) Basophils (%) (Auto) 1 % (0-3) 1 % (0-3) Neutrophils # (Auto) 7.2 x10^3uL (1.8-7.7) 5.0 x10^3uL (1.8-7.7) Lymphocytes # (Auto) 0.5 x10^3/uL (1.0-4.8) 0.6 x10^3/uL (1.0-4.8) Monocytes # (Auto) 0.4 x10^3/uL (0.0-1.1) 0.6 x10^3/uL (0.0-1.1) Eosinophils # (Auto) 0.0 x10^3/uL (0.0-0.7) 0.1 x10^3/uL (0.0-0.7) Basophils # (Auto) 0.1 x10^3/uL (0.0-0.2) 0.1 x10^3/uL (0.0-0.2) Segmented Neutrophils % 93 % (35-66) Lymphocytes % 4 % (24-48) Monocytes % 3 % (0-10) Platelet Estimate Adequate (ADEQUATE) Hypochromasia Slight Anisocytosis Slight Microcytosis Mod Glucose (Fingerstick) 148 mg/dL (70-99) Magnesium Level 1.9 mg/dL (1.8-2.4) Iron Level 9 ug/dL (65-175) Total Iron Binding Capacity 384 ug/dL (250-450) Iron Saturation 2 % (15-34) Thyroid Stimulating Hormone (TSH) 1.067 uIU/mL (0.358-3.74) Laboratory Tests Test 08/23/18 18:20 08/23/18 20:45 08/23/18 22:11 08/24/18 03:05 Prothrombin Time 21.0 SEC (11.7-14.0) Prothromb Time International Ratio 1.8 (0.8-1.1) Activated Partial Thromboplast Time 36 SEC (24-38) Sodium Level 139 mmol/L (136-145) 142 mmol/L (136-145) Potassium Level 3.8 mmol/L (3.5-5.1) 4.4 mmol/L (3.5-5.1) Chloride Level 104 mmol/L (98-107) 106 mmol/L (98-107) Carbon Dioxide Level 27 mmol/L (21-32) 27 mmol/L (21-32) Anion Gap 8 (6-14) 9 (6-14) Blood Urea Nitrogen 22 mg/dL (8-26) 21 mg/dL (8-26) Creatinine 1.0 mg/dL (0.7-1.3) 1.1 mg/dL (0.7-1.3) Estimated GFR (Cockcroft-Gault) 74.5 66.8 BUN/Creatinine Ratio 22 (6-20) 19 (6-20) Glucose Level 93 mg/dL (70-99) 183 mg/dL (70-99) Calcium Level 9.3 mg/dL (8.5-10.1) 9.2 mg/dL (8.5-10.1) Total Bilirubin 0.8 mg/dL (0.2-1.0) 0.6 mg/dL (0.2-1.0) Aspartate Amino Transf (AST/SGOT) 24 U/L (15-37) 19 U/L (15-37) Alanine Aminotransferase (ALT/SGPT) 16 U/L (16-63) 20 U/L (16-63) Alkaline Phosphatase 142 U/L (46-116) 135 U/L (46-116) Troponin I Quantitative 0.043 ng/mL (0.000-0.055) TE-Kos-C-Type Natriuretic Peptide 3906 pg/mL (0-124) Total Protein 7.4 g/dL (6.4-8.2) 6.9 g/dL (6.4-8.2) Albumin 3.7 g/dL (3.4-5.0) 3.4 g/dL (3.4-5.0) Albumin/Globulin Ratio 1.0 (1.0-1.7) 1.0 (1.0-1.7) White Blood Count 8.2 x10^3/uL (4.0-11.0) 6.3 x10^3/uL (4.0-11.0) Red Blood Count 4.26 x10^6/uL (4.30-5.70) 4.26 x10^6/uL (4.30-5.70) Hemoglobin 8.1 g/dL (13.0-17.5) 8.2 g/dL (13.0-17.5) Hematocrit 27.9 % (39.0-53.0) 27.7 % (39.0-53.0) Mean Corpuscular Volume 65 fL (79-100) 65 fL (79-100) Mean Corpuscular Hemoglobin 19 pg (25-35) 19 pg (25-35) Mean Corpuscular Hemoglobin Concent 29 g/dL (31-37) 30 g/dL (31-37) Red Cell Distribution Width 18.1 % (11.5-14.5) 18.8 % (11.5-14.5) Platelet Count 260 x10^3/uL (140-400) 244 x10^3/uL (140-400) Neutrophils (%) (Auto) 88 % (31-73) 79 % (31-73) Lymphocytes (%) (Auto) 6 % (24-48) 9 % (24-48) Monocytes (%) (Auto) 5 % (0-9) 9 % (0-9) Eosinophils (%) (Auto) 0 % (0-3) 2 % (0-3) Basophils (%) (Auto) 1 % (0-3) 1 % (0-3) Neutrophils # (Auto) 7.2 x10^3uL (1.8-7.7) 5.0 x10^3uL (1.8-7.7) Lymphocytes # (Auto) 0.5 x10^3/uL (1.0-4.8) 0.6 x10^3/uL (1.0-4.8) Monocytes # (Auto) 0.4 x10^3/uL (0.0-1.1) 0.6 x10^3/uL (0.0-1.1) Eosinophils # (Auto) 0.0 x10^3/uL (0.0-0.7) 0.1 x10^3/uL (0.0-0.7) Basophils # (Auto) 0.1 x10^3/uL (0.0-0.2) 0.1 x10^3/uL (0.0-0.2) Segmented Neutrophils % 93 % (35-66) Lymphocytes % 4 % (24-48) Monocytes % 3 % (0-10) Platelet Estimate Adequate (ADEQUATE) Hypochromasia Slight Anisocytosis Slight Microcytosis Mod Glucose (Fingerstick) 148 mg/dL (70-99) Magnesium Level 1.9 mg/dL (1.8-2.4) Iron Level 9 ug/dL (65-175) Total Iron Binding Capacity 384 ug/dL (250-450) Iron Saturation 2 % (15-34) Thyroid Stimulating Hormone (TSH) 1.067 uIU/mL (0.358-3.74) Medications Current Medications Diltiazem HCl (Cardizem Iv Push) 10 mg 1X ONCE IVP ; Start 08/23/18 at 19:45; Stop 08/23/18 at 19:46; Status DC Diltiazem HCl 125 mg/Dextrose 125 ml @ 5 mls/hr CONT PRN IV SEE I/O RECORD; Start 08/23/18 at 19:30; Stop 08/24/18 at 09:13; Status DC Diltiazem HCl (Cardizem Iv Push) 25 mg STK-MED ONCE .ROUTE ; Start 08/23/18 at 19:18; Stop 08/23/18 at 19:19; Status DC Diltiazem HCl (Cardizem) 60 mg Q8HRS PO Last administered on 08/23/18at 23:53; Start 08/23/18 at 23:30 Metoprolol Tartrate (Lopressor) 50 mg BID PO ; Start 08/24/18 at 09:00; Stop 08/24/18 at 09:00; Status DC Metoprolol Tartrate (Lopressor) 50 mg 1X ONCE PO Last administered on 08/23/18at 23:54; Start 08/23/18 at 23:30; Stop 08/23/18 at 23:31; Status DC Dabigatran (Pradaxa) 150 mg BID PO ; Start 08/24/18 at 09:00; Status Cancel Dabigatran (Pradaxa) 150 mg 1X ONCE PO ; Start 08/23/18 at 23:30; Stop 08/23/18 at 23:31; Status Cancel Potassium Chloride (Klor-Con) 20 meq 1X ONCE PO Last administered on 08/23/18at 23:54; Start 08/23/18 at 23:30; Stop 08/23/18 at 23:31; Status DC Aspirin (Children'S Aspirin) 81 mg DAILY PO Last administered on 08/24/18at 09 :10; Start 08/24/18 at 09:00 Atorvastatin Calcium (Lipitor) 80 mg HS PO ; Start 08/24/18 at 21:00 Acetaminophen/ Hydrocodone Bitart (Lortab 7.5/325) 1 tab PRN Q6HRS PRN PO MODERATE PAIN; Start 08/23/18 at 23:15 Lisinopril (Prinivil) 10 mg DAILY PO Last administered on 08/24/18at 09:11; Start 08/24/18 at 09:00 Insulin Glargine (Lantus) 20 units QHS SQ ; Start 08/24/18 at 21:00; Stop 08/24/18 at 21:00; Status DC Insulin Human Lispro (HumaLOG) 20 units BIDWMEALS SQ ; Start 08/24/18 at 08:00 Non-Formulary Medication (Metoprolol Succinate (Toprol Xl)) 100 mg DAILY PO ; Start 08/24/18 at 09:00; Status UNV Fish Oil (Fish Oil) 1,000 mg BID PO Last administered on 08/24/18at 09:11; Start 08/24/18 at 09:00 Rivaroxaban (Xarelto) 20 mg DAILYWSUP PO ; Start 08/24/18 at 17:00 Gabapentin (Neurontin) 600 mg QHS PO ; Start 08/24/18 at 21:00 Info (Anti-Coagulation Monitoring By Pharmacy) 1 each PRN DAILY PRN MC SEE COMMENTS; Start 08/23/18 at 23:45 Insulin Glargine (Lantus) 30 units QHS SQ ; Start 08/24/18 at 21:00 Metoprolol Tartrate (Lopressor) 25 mg BID PO ; Start 08/24/18 at 09:00 Metformin HCl (Glucophage Xr) 1,000 mg HS PO ; Start 08/24/18 at 21:00 Dextrose (Dextrose 50%-Water Syringe) 12.5 gm PRN Q15MIN PRN IV SEE COMMENTS; Start 08/24/18 at 01:30 Ondansetron HCl (Zofran) 4 mg PRN Q6HRS PRN IV NAUSEA/VOMITING Last administered on 08/24/18at 08:22; Start 08/24/18 at 08:15 Furosemide (Lasix) 40 mg 1X ONCE IVP ; Start 08/24/18 at 09:15; Stop 08/24/18 at 09:16; Status UNV Active Scripts Active Lortab 7.5-325 mg Tablet (Hydrocodone/Acetaminophen) 1 Each Tablet 1 Tab PO PRN Q6HRS PRN Reported Gabapentin 600 Mg Tablet 600 Mg PO HS Lantus (Insulin Glargine,Hum.rec.anlog) 100 Unit/1 Ml Vial 20 Unit SQ HS Fish Oil (Marcellus-3 Fatty Acids) 300 Mg Capsule 360 Mg PO BID Aspirin 81 Mg Tab.chew 81 Mg PO DAILY Xarelto (Rivaroxaban) 20 Mg Tablet 20 Mg PO DAILY Benazepril Hcl 10 Mg Tablet 10 Mg PO DAILY Toprol Xl (Metoprolol Succinate) 50 Mg Tab.er.24h 100 Mg PO DAILY Atorvastatin Calcium 40 Mg Tablet 80 Mg PO HS Humalog (Insulin Lispro) 100 Unit/1 Ml Cartridge 20 Unit SQ BIDAC Vitals/I & O Vital Sign - Last 24 Hours 08/23/18 08/23/18 08/23/18 08/23/18 18:41 22:00 22:30 23:00 Temp 97.8 97.8 97.8 97.8 Pulse 119 93 90 Resp 20 24 B/P (MAP) 199/87 (124) 153/75 (101) 159/80 (106) Pulse Ox 95 96 O2 Delivery Room Air Room Air Room Air 08/23/18 08/23/18 08/23/18 08/24/18 23:30 23:53 23:54 00:00 Pulse 78 81 81 92 B/P (MAP) 154/71 (98) 154/71 154/71 159/85 (109) 08/24/18 08/24/18 08/24/18 08/24/18 00:30 01:00 01:30 02:00 Pulse 87 93 77 74 B/P (MAP) 162/77 (105) 157/82 (107) 161/87 (111) 162/75 (104) 08/24/18 08/24/18 08/24/18 08/24/18 02:30 06:00 07:00 07:05 Temp 97.6 97.6 Pulse 66 26 50 50 Resp 18 B/P (MAP) 144/70 (94) 112/58 118/58 (78) 102/52 (69) Pulse Ox 100 O2 Delivery Room Air 08/24/18 08/24/18 08/24/18 08/24/18 07:10 08:00 09:00 09:11 Pulse 52 47 47 B/P (MAP) 109/57 (74) 109/57 109/57 O2 Delivery Room Air Intake and Output 08/23/18 08/23/18 08/24/18 15:00 23:00 07:00 Intake Total 405 ml Output Total 300 ml 0 ml Balance -300 ml 405 ml Images Echo - April 2018 - Left ventricle systolic function is mildly impaired. The Ejection Fraction is 45%. The left atrium is moderately dilated. Trace mitral regurgitation. Trace tricuspid regurgitation. The PA pressure was estimated at 24 mmHg. There is no evidence of significant pericardial effusion. CXR - There are small bilateral pleural effusions, also airspace opacity greater on the right with basilar predominance which may be due to edema, infiltrates not excluded. Constellation of findings may be due to left ventricular failure given the enlarged pericardial cardiac silhouette. DINORAH DIALLO MD August 24, 2018 09:20
[2018-08-24] MEDS ORDERED: FUROSEMIDE 40 MG/4 ML VIAL. IVP ONE ×2 (09:30→15:30)
[2018-08-24] MEDS ORDERED: IRON SUCROSE COMPLEX 200 MG in IV NORMAL SALINE 100ML 100 ML IV ONE (10:00)
--- NOTE | 2018-08-24 10:16 | NUR ---
SS following for discharge planning. SS reviewed pt chart. Pt is from home and is currently on room air. No discharge needs noted at this time. SS will continue to follow for pending discharge needs.
--- NOTE | 2018-08-24 10:41 | PDOC2 ---
CARDIAC CONSULT DATE OF CONSULT Date of Consult DATE: 08/24/18 TIME: 10:32 REASON FOR CONSULT Reason for Consult: AFIB REFERRING PHYSICIAN Referring Physician: Dr. Ruiz SOURCE Source: Chart review, Patient HISTORY OF PRESENT ILLNESS HISTORY OF PRESENT ILLNESS This is a 67 yo male, with a history of AFIB and CAD s/p CABG, who presented secondary to shortness of breath and shaking uncontrollably. HR noted to be elevated upon arrival, which prompted this consult. Cardizem gtt was initiated. HR improved- Cardizem was converted to oral. Home BB was resumed. Patients HR dropped to the 30's. Oral rate control agents held this am. HR presently 66. Denies any chest pain, palpitations, dizziness, diaphoresis. Has had some orthopnea and LE edema over the last week or so. Was slightly nauseated this am. PAST MEDICAL HISTORY Cardiovascular: AFIB, CAD, CHF, HTN, Hyperlipidemia Pulmonary: No pertinent hx CENTRAL NERVOUS SYSTEM: Other (no pertinent hx) GI: No pertinent hx Heme/Onc: No pertinent hx Hepatobiliary: No pertinent hx Psych: No pertinent hx Musculoskeletal: Osteoarthritis Rheumatologic: No pertinent hx Infectious disease: No pertinent hx ENT: No pertinent hx Renal/: No pertinent hx Endocrine: No pertinent hx Dermatology: No pertinent hx PAST SURGICAL HISTORY Past Surgical History: CABG, Tonsillectomy, Other (back surgery ) FAMILY HISTORY Family History: Heart Disease SOCIAL HISTORY Smoke: Quit ALCOHOL: rare Drugs: None Lives: with Family CURRENT MEDICATIONS CURRENT MEDICATIONS Current Medications Medications (Trade) Dose Ordered Sig/Mega Route PRN Reason Start Time Stop Time Status Last Admin Dose Admin Diltiazem HCl (Cardizem) 60 mg Q8HRS PO 08/23/18 23:30 08/23/18 23:53 Metoprolol Tartrate (Lopressor) 50 mg 1X ONCE PO 08/23/18 23:30 08/23/18 23:31 DC 08/23/18 23:54 Potassium Chloride (Klor-Con) 20 meq 1X ONCE PO 08/23/18 23:30 08/23/18 23:31 DC 08/23/18 23:54 Aspirin (Children'S Aspirin) 81 mg DAILY PO 08/24/18 09:00 08/24/18 09:10 Lisinopril (Prinivil) 10 mg DAILY PO 08/24/18 09:00 08/24/18 09:11 Fish Oil (Fish Oil) 1,000 mg BID PO 08/24/18 09:00 08/24/18 09:11 Ondansetron HCl (Zofran) 4 mg PRN Q6HRS PRN IV NAUSEA/VOMITING 08/24/18 08:15 08/24/18 08:22 Furosemide (Lasix) 40 mg 1X ONCE IVP 08/24/18 09:30 08/24/18 09:31 DC 08/24/18 09:22 Iron Sucrose 200 mg/Sodium Chloride 110 ml @ 55 mls/hr 1X ONCE IV 08/24/18 10:00 08/24/18 11:59 08/24/18 09:59 ALLERGIES ALLERGIES: Coded Allergies: I S O L A T I O N *CONTACT* (Verified Allergy, Unknown, 02/27/16) mrsa No Known Medication Allergies (Verified Allergy, Unknown, 02/27/16) ROS Review of System 14 point ROS conducted with pertinent positives noted above in HPI. PHYSICAL EXAM General: Alert, Oriented X3, Cooperative, No acute distress HEENT: Atraumatic, Mucous membr. moist/pink Lungs: Clear to auscultation, Normal air movement Heart: Normal S1, Normal S2, No murmurs, Other (IRRR; AFIB rate 66) Abdomen: Soft Extremities: Normal pulses, Other (1+ bilateral LE edema ) Neuro: Normal speech, Sensation intact Psych/Mental Status: Mental status NL, Mood NL MUSCULOSKELETAL: Osteoarthritic changes both hands VITALS VITALS Vital Signs Date Time Temp Pulse Resp B/P (MAP) Pulse Ox O2 Delivery O2 Flow Rate FiO2 08/24/18 09:11 47 109/57 08/24/18 08:00 Room Air 08/24/18 07:00 97.6 18 100 97.6 LABS Lab: Laboratory Tests Test 08/23/18 18:20 08/23/18 20:45 08/23/18 22:11 08/24/18 03:05 Prothrombin Time 21.0 SEC (11.7-14.0) Prothromb Time International Ratio 1.8 (0.8-1.1) Activated Partial Thromboplast Time 36 SEC (24-38) Sodium Level 139 mmol/L (136-145) 142 mmol/L (136-145) Potassium Level 3.8 mmol/L (3.5-5.1) 4.4 mmol/L (3.5-5.1) Chloride Level 104 mmol/L (98-107) 106 mmol/L (98-107) Carbon Dioxide Level 27 mmol/L (21-32) 27 mmol/L (21-32) Anion Gap 8 (6-14) 9 (6-14) Blood Urea Nitrogen 22 mg/dL (8-26) 21 mg/dL (8-26) Creatinine 1.0 mg/dL (0.7-1.3) 1.1 mg/dL (0.7-1.3) Estimated GFR (Cockcroft-Gault) 74.5 66.8 BUN/Creatinine Ratio 22 (6-20) 19 (6-20) Glucose Level 93 mg/dL (70-99) 183 mg/dL (70-99) Calcium Level 9.3 mg/dL (8.5-10.1) 9.2 mg/dL (8.5-10.1) Total Bilirubin 0.8 mg/dL (0.2-1.0) 0.6 mg/dL (0.2-1.0) Aspartate Amino Transf (AST/SGOT) 24 U/L (15-37) 19 U/L (15-37) Alanine Aminotransferase (ALT/SGPT) 16 U/L (16-63) 20 U/L (16-63) Alkaline Phosphatase 142 U/L (46-116) 135 U/L (46-116) Troponin I Quantitative 0.043 ng/mL (0.000-0.055) HP-Mlp-H-Type Natriuretic Peptide 3906 pg/mL (0-124) Total Protein 7.4 g/dL (6.4-8.2) 6.9 g/dL (6.4-8.2) Albumin 3.7 g/dL (3.4-5.0) 3.4 g/dL (3.4-5.0) Albumin/Globulin Ratio 1.0 (1.0-1.7) 1.0 (1.0-1.7) White Blood Count 8.2 x10^3/uL (4.0-11.0) 6.3 x10^3/uL (4.0-11.0) Red Blood Count 4.26 x10^6/uL (4.30-5.70) 4.26 x10^6/uL (4.30-5.70) Hemoglobin 8.1 g/dL (13.0-17.5) 8.2 g/dL (13.0-17.5) Hematocrit 27.9 % (39.0-53.0) 27.7 % (39.0-53.0) Mean Corpuscular Volume 65 fL (79-100) 65 fL (79-100) Mean Corpuscular Hemoglobin 19 pg (25-35) 19 pg (25-35) Mean Corpuscular Hemoglobin Concent 29 g/dL (31-37) 30 g/dL (31-37) Red Cell Distribution Width 18.1 % (11.5-14.5) 18.8 % (11.5-14.5) Platelet Count 260 x10^3/uL (140-400) 244 x10^3/uL (140-400) Neutrophils (%) (Auto) 88 % (31-73) 79 % (31-73) Lymphocytes (%) (Auto) 6 % (24-48) 9 % (24-48) Monocytes (%) (Auto) 5 % (0-9) 9 % (0-9) Eosinophils (%) (Auto) 0 % (0-3) 2 % (0-3) Basophils (%) (Auto) 1 % (0-3) 1 % (0-3) Neutrophils # (Auto) 7.2 x10^3uL (1.8-7.7) 5.0 x10^3uL (1.8-7.7) Lymphocytes # (Auto) 0.5 x10^3/uL (1.0-4.8) 0.6 x10^3/uL (1.0-4.8) Monocytes # (Auto) 0.4 x10^3/uL (0.0-1.1) 0.6 x10^3/uL (0.0-1.1) Eosinophils # (Auto) 0.0 x10^3/uL (0.0-0.7) 0.1 x10^3/uL (0.0-0.7) Basophils # (Auto) 0.1 x10^3/uL (0.0-0.2) 0.1 x10^3/uL (0.0-0.2) Segmented Neutrophils % 93 % (35-66) Lymphocytes % 4 % (24-48) Monocytes % 3 % (0-10) Platelet Estimate Adequate (ADEQUATE) Hypochromasia Slight Anisocytosis Slight Microcytosis Mod Glucose (Fingerstick) 148 mg/dL (70-99) Magnesium Level 1.9 mg/dL (1.8-2.4) Iron Level 9 ug/dL (65-175) Total Iron Binding Capacity 384 ug/dL (250-450) Iron Saturation 2 % (15-34) Thyroid Stimulating Hormone (TSH) 1.067 uIU/mL (0.358-3.74) ECHOCARDIOGRAM ECHOCARDIOGRAM <Conclusion> Left ventricle systolic function is mildly impaired. The Ejection Fraction is 45%. The left atrium is moderately dilated. Trace mitral regurgitation. Trace tricuspid regurgitation. The PA pressure was estimated at 24 mmHg. There is no evidence of significant pericardial effusion. DATE: 04/12/18 1447 ASSESSMENT/PLAN ASSESSMENT/PLAN 1. Acute on chronic systolic HF; improved 2. Permanent AFIB, with RVR upon arrival. Presently AFIB with intermittent bradycardia. Lowest noted at 39- metoprolol held this am. On Xarelto for stroke prevention. INR 1.8 3. ICM; LVEF 45% from echo 04/12 4. CAD s/p CABG x3 2006 and PCI/stent in 2008 5. Hypertension; controlled 5. Hyperlipidemia; statin 6. Diabetes, II; as per PCP 7. Anemia, iron deficiency; s/p iron replacement Recommendations Decrease metoprolol to 12.5mg and monitor. If HR stable with this, covert to Toprol 25mg Consider outpatient event monitor to evaluate for tachy/mary Xarelto for stroke prevention- monitor with anemia Mild diuresis Secondary prevention; continue ASA, statin, BB, ACEi Consider outpatient ischemic workup BOB KRAUS APRN August 24, 2018 10:41
[2018-08-24] MEDS: METOPROLOL TART IMMED RELEASE 25 MG TABLET. PO SCH ×2 (11:30→21:38)
[2018-08-24 11:42] LABS: BILIRUBIN,URINE NEGATIVE (NEG); CLARITY,URINE CLEAR; COLOR,URINE YELLOW; NITRITE,URINE NEGATIVE (NEG); PROTEIN,URINE 30 mg/dL (NEG-TRACE); UROBILINOGEN,URINE 0.2 mg/dL (0.2 mg/dL)
[2018-08-24 11:52] LABS: BACTERIA,URINE 0 /HPF (0-FEW); HYALINE CASTS, URINE MODERATE /HPF; RBC,URINE RARE /HPF (0-2); SPERM,URINE PRESENT /HPF; SQUAMOUS EPITHELIAL CELL,UR FEW /LPF; WBC,URINE RARE /HPF (0-4)
[2018-08-24 15:31] LABS: CHOLESTEROL/HDL RATIO 2.7
[2018-08-24] MEDS: RIVAROXABAN 10 MG TABLET. PO SCH (17:43)
[2018-08-24] MEDS ORDERED: INSULIN GLARGINE 300 UNITS/3 ML INSULN.PEN. SQ SCH (21:00)
[2018-08-24] MEDS: INSULIN GLARGINE 300 UNITS/3 ML INSULN.PEN. SQ SCH (21:00)
[2018-08-24] MEDS: metFORMIN XR 500 MG TAB.ER.24H PO SCH (21:37)
[2018-08-24] MEDS: ATORVASTATIN CALCIUM 40 MG TABLET. PO SCH (21:37)
[2018-08-24] MEDS: GABAPENTIN 300 MG CAPSULE. PO SCH (21:37)
[2018-08-25 03:10] LABS: HEMOGLOBIN A1C 8.8 % (4.8-5.6)
[2018-08-25 03:25] VITALS: BP 153/78
[2018-08-25 07:00] VITALS: BP 151/91
[2018-08-25] MEDS: ASPIRIN CHEWABLE 81 MG TABLET. PO SCH (08:46)
[2018-08-25] MEDS: OMEGA-3 FATTY ACIDS/FISH OIL 1,000 MG CAPSULE. PO SCH ×2 (08:46→21:35)
[2018-08-25] MEDS: LISINOPRIL 10 MG TABLET PO SCH (08:47)
--- NOTE | 2018-08-25 08:48 | PDOC ---
PROGRESS NOTES Chief Complaint Chief Complaint Assessment/Plan Dyspnea on exertion - likely acute combined systolic and acute diastolic CHF - lasix IV x1 now Atrial fibrillation with RVR - off cardizem gtt, changed to PO , CV consult Microcytic anemia - iron low, will replace IV, likely needs w/u for GI bleed at some point Dm2 - check a1c, on insulin History of Present Illness History of Present Illness Reed is a 67-year-old male admit for worsening shortness of breath over days, and he was markedly weak and shaky, noted dyspnea with activity for almost a week, found with Afib with RVR and CHF exacerbation Patient is denying any chest pain or palpitations. Patient denies any recent illness. Patient states he does have history of A. fib and CHF 08/24: Given oral diltiazem and metoprolol, became somewhat bradycardic Overnight became tachy and hypertensive again. Feels ok now. Plan: F/u cardiology recs, needs toprol XL or carvedilol for his CHF, will defer to cardiology recs on this, regardless he is tachy again overnight and this marian g, will increase his metoprolol. Ok for transfer to [facility] or med/Tele if ok with cardiology, may be getting close to D/c Vitals Vitals Vital Signs Date Time Temp Pulse Resp B/P (MAP) Pulse Ox O2 Delivery O2 Flow Rate FiO2 08/25/18 08:00 Room Air 08/25/18 07:00 98.0 112 17 151/91 (111) 98.0 08/25/18 03:25 97 Physical Exam General: Alert, Oriented X3, Cooperative, No acute distress Heart: Normal S1, Normal S2, No murmurs, Other (IRRR; AFIB rate 66) Abdomen: Soft Extremities: Normal pulses, Other (1+ bilateral LE edema ) Skin: No significant lesion Labs LABS Laboratory Tests Test 08/24/18 11:16 08/24/18 11:33 08/24/18 17:12 08/24/18 21:34 Glucose (Fingerstick) 227 mg/dL (70-99) 196 mg/dL (70-99) 74 mg/dL (70-99) Urine Collection Type Unknown Urine Color Yellow Urine Clarity Clear Urine pH 5.0 Urine Specific [place] 1.010 Urine Protein 30 mg/dL (NEG-TRACE) Urine Glucose (UA) Negative mg/dL (NEG) Urine Ketones (Stick) Negative mg/dL (NEG) Urine Blood Negative (NEG) Urine Nitrite Negative (NEG) Urine Bilirubin Negative (NEG) Urine Urobilinogen Dipstick 0.2 mg/dL (0.2 mg/dL) Urine Leukocyte Esterase Negative (NEG) Urine RBC Rare /HPF (0-2) Urine WBC Rare /HPF (0-4) Urine Squamous Epithelial Cells Few /LPF Urine Bacteria 0 /HPF (0-FEW) Urine Hyaline Casts Moderate /HPF Urine Sperm Present /HPF Test 08/25/18 07:57 Glucose (Fingerstick) 89 mg/dL (70-99) Assessment and Plan Assessmemt and Plan Problems Medical Problems: (1) Atrial fibrillation with RVR Status: Acute (2) Dyspnea Status: Acute Comment Review of Relevant I have reviewed the following items yamilex (where applicable) has been applied. Labs Laboratory Tests Test 08/23/18 18:20 08/23/18 20:45 08/23/18 22:11 08/24/18 03:05 Prothrombin Time 21.0 SEC (11.7-14.0) Prothromb Time International Ratio 1.8 (0.8-1.1) Activated Partial Thromboplast Time 36 SEC (24-38) Sodium Level 139 mmol/L (136-145) 142 mmol/L (136-145) Potassium Level 3.8 mmol/L (3.5-5.1) 4.4 mmol/L (3.5-5.1) Chloride Level 104 mmol/L (98-107) 106 mmol/L (98-107) Carbon Dioxide Level 27 mmol/L (21-32) 27 mmol/L (21-32) Anion Gap 8 (6-14) 9 (6-14) Blood Urea Nitrogen 22 mg/dL (8-26) 21 mg/dL (8-26) Creatinine 1.0 mg/dL (0.7-1.3) 1.1 mg/dL (0.7-1.3) Estimated GFR (Cockcroft-Gault) 74.5 66.8 BUN/Creatinine Ratio 22 (6-20) 19 (6-20) Glucose Level 93 mg/dL (70-99) 183 mg/dL (70-99) Calcium Level 9.3 mg/dL (8.5-10.1) 9.2 mg/dL (8.5-10.1) Total Bilirubin 0.8 mg/dL (0.2-1.0) 0.6 mg/dL (0.2-1.0) Aspartate Amino Transf (AST/SGOT) 24 U/L (15-37) 19 U/L (15-37) Alanine Aminotransferase (ALT/SGPT) 16 U/L (16-63) 20 U/L (16-63) Alkaline Phosphatase 142 U/L (46-116) 135 U/L (46-116) Troponin I Quantitative 0.043 ng/mL (0.000-0.055) GB-Gqx-B-Type Natriuretic Peptide 3906 pg/mL (0-124) Total Protein 7.4 g/dL (6.4-8.2) 6.9 g/dL (6.4-8.2) Albumin 3.7 g/dL (3.4-5.0) 3.4 g/dL (3.4-5.0) Albumin/Globulin Ratio 1.0 (1.0-1.7) 1.0 (1.0-1.7) White Blood Count 8.2 x10^3/uL (4.0-11.0) 6.3 x10^3/uL (4.0-11.0) Red Blood Count 4.26 x10^6/uL (4.30-5.70) 4.26 x10^6/uL (4.30-5.70) Hemoglobin 8.1 g/dL (13.0-17.5) 8.2 g/dL (13.0-17.5) Hematocrit 27.9 % (39.0-53.0) 27.7 % (39.0-53.0) Mean Corpuscular Volume 65 fL (79-100) 65 fL (79-100) Mean Corpuscular Hemoglobin 19 pg (25-35) 19 pg (25-35) Mean Corpuscular Hemoglobin Concent 29 g/dL (31-37) 30 g/dL (31-37) Red Cell Distribution Width 18.1 % (11.5-14.5) 18.8 % (11.5-14.5) Platelet Count 260 x10^3/uL (140-400) 244 x10^3/uL (140-400) Neutrophils (%) (Auto) 88 % (31-73) 79 % (31-73) Lymphocytes (%) (Auto) 6 % (24-48) 9 % (24-48) Monocytes (%) (Auto) 5 % (0-9) 9 % (0-9) Eosinophils (%) (Auto) 0 % (0-3) 2 % (0-3) Basophils (%) (Auto) 1 % (0-3) 1 % (0-3) Neutrophils # (Auto) 7.2 x10^3uL (1.8-7.7) 5.0 x10^3uL (1.8-7.7) Lymphocytes # (Auto) 0.5 x10^3/uL (1.0-4.8) 0.6 x10^3/uL (1.0-4.8) Monocytes # (Auto) 0.4 x10^3/uL (0.0-1.1) 0.6 x10^3/uL (0.0-1.1) Eosinophils # (Auto) 0.0 x10^3/uL (0.0-0.7) 0.1 x10^3/uL (0.0-0.7) Basophils # (Auto) 0.1 x10^3/uL (0.0-0.2) 0.1 x10^3/uL (0.0-0.2) Segmented Neutrophils % 93 % (35-66) Lymphocytes % 4 % (24-48) Monocytes % 3 % (0-10) Platelet Estimate Adequate (ADEQUATE) Hypochromasia Slight Anisocytosis Slight Microcytosis Mod Glucose (Fingerstick) 148 mg/dL (70-99) Hemoglobin A1c 8.8 % (4.8-5.6) Magnesium Level 1.9 mg/dL (1.8-2.4) Iron Level 9 ug/dL (65-175) Total Iron Binding Capacity 384 ug/dL (250-450) Iron Saturation 2 % (15-34) Triglycerides Level 64 mg/dL (0-150) Cholesterol Level 102 mg/dL (0-200) LDL Cholesterol, Calculated 51 mg/dL (0-100) VLDL Cholesterol, Calculated 13 mg/dL (0-40) Non-HDL Cholesterol Calculated 64 mg/dL (0-129) HDL Cholesterol 38 mg/dL (40-60) Cholesterol/HDL Ratio 2.7 Procalcitonin < 0.10 ng/mL (0.00-0.10) Thyroid Stimulating Hormone (TSH) 1.067 uIU/mL (0.358-3.74) Test 08/24/18 11:16 08/24/18 11:33 08/24/18 17:12 08/24/18 21:34 Glucose (Fingerstick) 227 mg/dL (70-99) 196 mg/dL (70-99) 74 mg/dL (70-99) Urine Collection Type Unknown Urine Color Yellow Urine Clarity Clear Urine pH 5.0 Urine Specific [place] 1.010 Urine Protein 30 mg/dL (NEG-TRACE) Urine Glucose (UA) Negative mg/dL (NEG) Urine Ketones (Stick) Negative mg/dL (NEG) Urine Blood Negative (NEG) Urine Nitrite Negative (NEG) Urine Bilirubin Negative (NEG) Urine Urobilinogen Dipstick 0.2 mg/dL (0.2 mg/dL) Urine Leukocyte Esterase Negative (NEG) Urine RBC Rare /HPF (0-2) Urine WBC Rare /HPF (0-4) Urine Squamous Epithelial Cells Few /LPF Urine Bacteria 0 /HPF (0-FEW) Urine Hyaline Casts Moderate /HPF Urine Sperm Present /HPF Test 08/25/18 07:57 Glucose (Fingerstick) 89 mg/dL (70-99) Laboratory Tests Test 08/24/18 11:16 08/24/18 11:33 08/24/18 17:12 08/24/18 21:34 Glucose (Fingerstick) 227 mg/dL (70-99) 196 mg/dL (70-99) 74 mg/dL (70-99) Urine Collection Type Unknown Urine Color Yellow Urine Clarity Clear Urine pH 5.0 Urine Specific [place] 1.010 Urine Protein 30 mg/dL (NEG-TRACE) Urine Glucose (UA) Negative mg/dL (NEG) Urine Ketones (Stick) Negative mg/dL (NEG) Urine Blood Negative (NEG) Urine Nitrite Negative (NEG) Urine Bilirubin Negative (NEG) Urine Urobilinogen Dipstick 0.2 mg/dL (0.2 mg/dL) Urine Leukocyte Esterase Negative (NEG) Urine RBC Rare /HPF (0-2) Urine WBC Rare /HPF (0-4) Urine Squamous Epithelial Cells Few /LPF Urine Bacteria 0 /HPF (0-FEW) Urine Hyaline Casts Moderate /HPF Urine Sperm Present /HPF Test 08/25/18 07:57 Glucose (Fingerstick) 89 mg/dL (70-99) Medications Current Medications Diltiazem HCl (Cardizem Iv Push) 10 mg 1X ONCE IVP ; Start 08/23/18 at 19:45; Stop 08/23/18 at 19:46; Status DC Diltiazem HCl 125 mg/Dextrose 125 ml @ 5 mls/hr CONT PRN IV SEE I/O RECORD; Start 08/23/18 at 19:30; Stop 08/24/18 at 09:13; Status DC Diltiazem HCl (Cardizem Iv Push) 25 mg STK-MED ONCE .ROUTE ; Start 08/23/18 at 19:18; Stop 08/23/18 at 19:19; Status DC Diltiazem HCl (Cardizem) 60 mg Q8HRS PO Last administered on 08/23/18at 23:53; Start 08/23/18 at 23:30; Stop 08/24/18 at 11:09; Status DC Metoprolol Tartrate (Lopressor) 50 mg BID PO ; Start 08/24/18 at 09:00; Stop 08/24/18 at 09:00; Status DC Metoprolol Tartrate (Lopressor) 50 mg 1X ONCE PO Last administered on 08/23/18at 23:54; Start 08/23/18 at 23:30; Stop 08/23/18 at 23:31; Status DC Dabigatran (Pradaxa) 150 mg BID PO ; Start 08/24/18 at 09:00; Status Cancel Dabigatran (Pradaxa) 150 mg 1X ONCE PO ; Start 08/23/18 at 23:30; Stop 08/23/18 at 23:31; Status Cancel Potassium Chloride (Klor-Con) 20 meq 1X ONCE PO Last administered on 08/23/18at 23:54; Start 08/23/18 at 23:30; Stop 08/23/18 at 23:31; Status DC Aspirin (Children'S Aspirin) 81 mg DAILY PO Last administered on 08/24/18at 09:10; Start 08/24/18 at 09:00 Atorvastatin Calcium (Lipitor) 80 mg HS PO Last administered on 08/24/18at 21:37; Start 08/24/18 at 21:00 Acetaminophen/ Hydrocodone Bitart (Lortab 7.5/325) 1 tab PRN Q6HRS PRN PO MODERATE PAIN; Start 08/23/18 at 23:15 Lisinopril (Prinivil) 10 mg DAILY PO Last administered on 08/24/18at 09:11; Start 08/24/18 at 09:00 Insulin Glargine (Lantus) 20 units QHS SQ ; Start 08/24/18 at 21:00; Stop 08/24/18 at 21:00; Status DC Insulin Human Lispro (HumaLOG) 20 units BIDWMEALS SQ Last administered on 08/24/18at 17:48; Start 08/24/18 at 08:00 Non-Formulary Medication (Metoprolol Succinate (Toprol Xl)) 100 mg DAILY PO ; Start 08/24/18 at 09:00; Status UNV Fish Oil (Fish Oil) 1,000 mg BID PO Last administered on 08/24/18at 21:37; Start 08/24/18 at 09:00 Rivaroxaban (Xarelto) 20 mg DAILYWSUP PO Last administered on 08/24/18at 17:43; Start 08/24/18 at 17:00 Gabapentin (Neurontin) 600 mg QHS PO Last administered on 08/24/18at 21:37; Start 08/24/18 at 21:00 Info (Anti-Coagulation Monitoring By Pharmacy) 1 each PRN DAILY PRN MC SEE COMMENTS; Start 08/23/18 at 23:45 Insulin Glargine (Lantus) 30 units QHS SQ ; Start 08/24/18 at 21:00 Metoprolol Tartrate (Lopressor) 25 mg BID PO ; Start 08/24/18 at 09:00; Stop 08/24/18 at 11:09; Status DC Metformin HCl (Glucophage Xr) 1,000 mg HS PO Last administered on 08/24/18at 21:37; Start 08/24/18 at 21:00 Dextrose (Dextrose 50%-Water Syringe) 12.5 gm PRN Q15MIN PRN IV SEE COMMENTS; Start 08/24/18 at 01:30 Ondansetron HCl (Zofran) 4 mg PRN Q6HRS PRN IV NAUSEA/VOMITING Last administered on 08/24/18 08:22; Start 08/24/18 at 08:15 Furosemide (Lasix) 40 mg 1X ONCE IVP Last administered on 08/24/18at 09:22; Start 08/24/18 at 09:30; Stop 08/24/18 at 09:31; Status DC Iron Sucrose 200 mg/Sodium Chloride 110 ml @ 55 mls/hr 1X ONCE IV Last administered on 08/24/18at 09:59; Start 08/24/18 at 10:00; Stop 08/24/18 at 11:59; Status DC Metoprolol Tartrate (Lopressor) 12.5 mg BID PO Last administered on 08/24/18at 21:38; Start 08/24/18 at 11:30 Furosemide (Lasix) 40 mg 1X ONCE IVP Last administered on 08/24/18at 15:21; Start 08/24/18 at 15:30; Stop 08/24/18 at 15:31; Status DC Active Scripts Active Lortab 7.5-325 mg Tablet (Hydrocodone/Acetaminophen) 1 Each Tablet 1 Tab PO PRN Q6HRS PRN Reported Gabapentin 600 Mg Tablet 600 Mg PO HS Lantus (Insulin Glargine,Hum.rec.anlog) 100 Unit/1 Ml Vial 20 Unit SQ HS Fish Oil ([place]-3 Fatty Acids) 300 Mg Capsule 360 Mg PO BID Aspirin 81 Mg Tab.chew 81 Mg PO DAILY Xarelto (Rivaroxaban) 20 Mg Tablet 20 Mg PO DAILY Benazepril Hcl 10 Mg Tablet 10 Mg PO DAILY Toprol Xl (Metoprolol Succinate) 50 Mg Tab.er.24h 100 Mg PO DAILY Atorvastatin Calcium 40 Mg Tablet 80 Mg PO HS Humalog (Insulin Lispro) 100 Unit/1 Ml Cartridge 20 Unit SQ BIDAC Vitals/I & O Vital Sign - Last 24 Hours 08/24/18 08/24/18 08/24/18 08/24/18 09:00 09:11 11:00 11:30 Temp 98.0 98.0 Pulse 47 47 70 87 Resp 18 B/P (MAP) 109/57 109/57 153/79 (103) 153/79 Pulse Ox 97 O2 Delivery Room Air 08/24/18 08/24/18 08/24/18 08/24/18 12:45 15:00 19:00 20:00 Temp 98.0 96.9 98.0 96.9 Pulse 61 71 85 Resp 20 16 B/P (MAP) 128/64 (85) 156/93 (114) 151/73 (99) Pulse Ox 100 98 O2 Delivery Room Air Room Air Room Air 08/24/18 08/24/18 08/25/18 08/25/18 21:38 22:30 01:00 03:25 Temp 97.9 97.8 97.9 97.8 Pulse 85 80 100 Resp 16 14 B/P (MAP) 151/73 140/82 (101) 153/78 (103) Pulse Ox 94 97 O2 Delivery Room Air Room Air Room Air 08/25/18 08/25/18 07:00 08:00 Temp 98.0 98.0 Pulse 112 Resp 17 B/P (MAP) 151/91 (111) O2 Delivery Room Air Room Air Intake and Output 08/24/18 08/24/18 08/25/18 14:59 22:59 06:59 Intake Total 360 ml 480 ml 100 ml Output Total 200 ml 1500 ml 300 ml Balance 160 ml -1020 ml -200 ml DINORAH IDALLO MD August 25, 2018 08:48
[2018-08-25] MEDS: INSULIN LISPRO 300 UNITS/3 ML INSULN.PEN. SQ SCH ×2 (08:50→16:52)
[2018-08-25] MEDS ORDERED: METOPROLOL TART IMMED RELEASE 25 MG TABLET. PO SCH (09:00)
[2018-08-25] MEDS ORDERED: METOPROLOL TART IMMED RELEASE 25 MG TABLET. PO ONE (09:00)
[2018-08-25] MEDS: ANTI-COAG MONITOR BY PHARMACY. MC PRN (11:00)
--- NOTE | 2018-08-25 11:03 | PDOC ---
CARDIO Progress Notes Date and Time Date of Service 08/25/18 Time of Evaluation 1012 Subjective Subjective: No Chest Pain, No shortness of breath, No Palpitations Vitals Vitals Vital Signs Date Time Temp Pulse Resp B/P (MAP) Pulse Ox O2 Delivery O2 Flow Rate FiO2 08/25/18 08:58 112 151/91 08/25/18 08:00 Room Air 08/25/18 07:00 98.0 17 98.0 08/25/18 03:25 97 Weight Weight [ ] Input and Output Intake and Output Intake and Output 08/25/18 07:00 Intake Total 940 ml Output Total 2000 ml Balance -1060 ml Intake Oral 940 ml Output Urine Total 2000 ml Laboratory Labs Laboratory Tests Test 08/24/18 11:16 08/24/18 11:33 08/24/18 17:12 08/24/18 21:34 Glucose (Fingerstick) 227 mg/dL (70-99) 196 mg/dL (70-99) 74 mg/dL (70-99) Urine Collection Type Unknown Urine Color Yellow Urine Clarity Clear Urine pH 5.0 Urine Specific [place] 1.010 Urine Protein 30 mg/dL (NEG-TRACE) Urine Glucose (UA) Negative mg/dL (NEG) Urine Ketones (Stick) Negative mg/dL (NEG) Urine Blood Negative (NEG) Urine Nitrite Negative (NEG) Urine Bilirubin Negative (NEG) Urine Urobilinogen Dipstick 0.2 mg/dL (0.2 mg/dL) Urine Leukocyte Esterase Negative (NEG) Urine RBC Rare /HPF (0-2) Urine WBC Rare /HPF (0-4) Urine Squamous Epithelial Cells Few /LPF Urine Bacteria 0 /HPF (0-FEW) Urine Hyaline Casts Moderate /HPF Urine Sperm Present /HPF Test 08/25/18 07:57 Glucose (Fingerstick) 89 mg/dL (70-99) Physical Exam HEENT: Neck Supple W Full Motion Chest: Symmetric LUNGS: Clear to Auscultation Heart: S1S2, irregularly irregular (AFIB rate 115) Abdomen: Soft N/T Extremities: 2+ Dorsalis Pedis, Other (1+ bilateral LE edema ) Neurology: alert, oriented, follow commands Assessment Assessment 1. Acute on chronic systolic HF; improved. Appears compensated 2. Permanent AFIB, with RVR upon arrival then was bradycardiac with metoprolol and cardizem. Cardizem discontinued and metoprolol decreased- patient t achycardic this morning. Xarelto for stroke prevention. INR 1.8 3. ICM; LVEF 45% from echo 04/12 4. CAD s/p CABG x3 2006 and PCI/stent in 2008 5. Hypertension; mildly elevated 5. Hyperlipidemia; statin 6. Diabetes, II; as per PCP 7. Anemia, iron deficiency; s/p iron replacement Recommendations Agree with metoprolol increase If HR stable on metoprolol 25mg BID, covert to Toprol 50mg daily Consider outpatient event monitor to evaluate for tachy/mary Xarelto for stroke prevention- monitor with anemia Mild diuresis Secondary prevention; continue ASA, statin, BB, ACEi Consider outpatient ischemic workup BOB KRAUS APRN August 25, 2018 11:03
[2018-08-25 11:09] VITALS: BP 162/86
[2018-08-25] MEDS ORDERED: FUROSEMIDE 40 MG TABLET. PO ONE (11:15)
[2018-08-25 15:19] VITALS: BP 165/89
--- NOTE | 2018-08-25 16:47 | NUR ---
PT ARRIVED TO UNIT AT 1345 FROM ICU, REPORT RECEIVED FROM KAREN MERCADO, PT STABLE UPON TRANSFER, AGREE WITH PREVIOUS ASSESSMENTS
[2018-08-25] MEDS: RIVAROXABAN 10 MG TABLET. PO SCH (16:59)
[2018-08-25] MEDS ORDERED: METOPROLOL SUCC 24HR ER 50 MG TAB.ER.24H. PO SCH (18:00)
[2018-08-25 19:28] VITALS: BP 159/91
[2018-08-25] MEDS: GABAPENTIN 300 MG CAPSULE. PO SCH (21:35)
[2018-08-25] MEDS: ATORVASTATIN CALCIUM 40 MG TABLET. PO SCH (21:35)
[2018-08-25] MEDS: metFORMIN XR 500 MG TAB.ER.24H PO SCH (21:36)
[2018-08-25] MEDS: INSULIN GLARGINE 300 UNITS/3 ML INSULN.PEN. SQ SCH (21:40)
[2018-08-25 22:31] VITALS: BP 152/88
[2018-08-26 03:10] VITALS: BP 160/84
--- NOTE | 2018-08-26 05:48 | NUR ---
THROUGH OUT THE NIGHT HR WENT TO 122 WHEN UP TO THE BATHROOM. WHEN BACK IN BED HR UNDER 100. LCRN
[2018-08-26 07:34] VITALS: BP 171/89
--- NOTE | 2018-08-26 08:17 | PDOC ---
PROGRESS NOTES Chief Complaint Chief Complaint Assessment/Plan Dyspnea on exertion - likely acute combined systolic and acute diastolic CHF - lasix IV given Atrial fibrillation with RVR - off cardizem gtt, changed to PO , CV consult Microcytic anemia - iron low, will replace IV, likely needs w/u for GI bleed at some point Dm2 - a1c 8.8 on insulin History of Present Illness History of Present Illness Reed is a 67-year-old male admit for worsening shortness of breath over days, and he was markedly weak and shaky, noted dyspnea with activity for almost a wee k, found with Afib with RVR and CHF exacerbation as well as HTN urgency. Patient is denying any chest pain or palpitations. Patient denies any recent illness. Patient states he does have history of A. fib and CHF 5: Given oral diltiazem and metoprolol, became somewhat bradycardic, stopped diltiazem, changed to metoprolol only. 08/25: Overnight became tachy and hypertensive again. Feels ok now. Transferred to [facility] overnight. Lasix was not given yesterday, now swollen in bilateral legs, short of breath with cough. Plan: Diurese BID with lasix. Needs further anemia w/u, he wishes to do this outpatient F/u cardiology recs, needs toprol XL or carvedilol for his CHF, will defer to cardiology recs on this, regardless he is tachy again overnight and this morning, will increase his metoprolol. Ok for transfer to [facility] or med/Tele if ok with cardiology, may be getting close to D/c Vitals Vitals Vital Signs Date Time Temp Pulse Resp B/P (MAP) Pulse Ox O2 Delivery O2 Flow Rate FiO2 08/26/18 07:34 97.7 96 18 171/89 (116) 96 Room Air 97.7 Physical Exam General: Alert, Oriented X3, Cooperative, No acute distress Heart: Normal S1, Normal S2, No murmurs, Other (IRRR; AFIB rate 66) Abdomen: Soft Extremities: Normal pulses, Other (1+ bilateral LE edema ) Skin: No significant lesion Labs LABS Laboratory Tests Test 08/25/18 11:06 08/25/18 16:45 08/25/18 20:24 08/26/18 07:12 Glucose (Fingerstick) 117 mg/dL (70-99) 70 mg/dL (70-99) 127 mg/dL (70-99) 90 mg/dL (70-99) Assessment and Plan Assessmemt and Plan Problems Medical Problems: (1) Atrial fibrillation with RVR Status: Acute (2) Dyspnea Status: Acute Comment Review of Relevant I have reviewed the following items yamilex (where applicable) has been applied. Labs Laboratory Tests Test 08/24/18 11:16 08/24/18 11:33 08/24/18 17:12 08/24/18 21:34 Glucose (Fingerstick) 227 mg/dL (70-99) 196 mg/dL (70-99) 74 mg/dL (70-99) Urine Collection Type Unknown Urine Color Yellow Urine Clarity Clear Urine pH 5.0 Urine Specific [place] 1.010 Urine Protein 30 mg/dL (NEG-TRACE) Urine Glucose (UA) Negative mg/dL (NEG) Urine Ketones (Stick) Negative mg/dL (NEG) Urine Blood Negative (NEG) Urine Nitrite Negative (NEG) Urine Bilirubin Negative (NEG) Urine Urobilinogen Dipstick 0.2 mg/dL (0.2 mg/dL) Urine Leukocyte Esterase Negative (NEG) Urine RBC Rare /HPF (0-2) Urine WBC Rare /HPF (0-4) Urine Squamous Epithelial Cells Few /LPF Urine Bacteria 0 /HPF (0-FEW) Urine Hyaline Casts Moderate /HPF Urine Sperm Present /HPF Test 08/25/18 07:57 08/25/18 11:06 08/25/18 16:45 08/25/18 20:24 Glucose (Fingerstick) 89 mg/dL (70-99) 117 mg/dL (70-99) 70 mg/dL (70-99) 127 mg/dL (70-99) Test 08/26/18 07:12 Glucose (Fingerstick) 90 mg/dL (70-99) Laboratory Tests Test 08/25/18 11:06 08/25/18 16:45 08/25/18 20:24 08/26/18 07:12 Glucose (Fingerstick) 117 mg/dL (70-99) 70 mg/dL (70-99) 127 mg/dL (70-99) 90 mg/dL (70-99) Medications Current Medications Diltiazem HCl (Cardizem Iv Push) 10 mg 1X ONCE IVP ; Start 08/23/18 at 19:45; Stop 08/23/18 at 19:46; Status DC Diltiazem HCl 125 mg/Dextrose 125 ml @ 5 mls/hr CONT PRN IV SEE I/O RECORD; Start 08/23/18 at 19:30; Stop 08/24/18 at 09:13; Status DC Diltiazem HCl (Cardizem Iv Push) 25 mg STK-MED ONCE .ROUTE ; Start 08/23/18 at 19:18; Stop 08/23/18 at 19:19; Status DC Diltiazem HCl (Cardizem) 60 mg Q8HRS PO Last administered on 08/23/18at 23:53; Start 08/23/18 at 23:30; Stop 08/24/18 at 11:09; Status DC Metoprolol Tartrate (Lopressor) 50 mg BID PO ; Start 08/24/18 at 09:00; Stop 08/24/18 at 09:00; Status DC Metoprolol Tartrate (Lopressor) 50 mg 1X ONCE PO Last administered on at 23:54; Start 08/23/18 at 23:30; Stop 08/23/18 at 23:31; Status DC Dabigatran (Pradaxa) 150 mg BID PO ; Start 08/24/18 at 09:00; Status Cancel Dabigatran (Pradaxa) 150 mg 1X ONCE PO ; Start 08/23/18 at 23:30; Stop 08/23/18 at 23:31; Status Cancel Potassium Chloride (Klor-Con) 20 meq 1X ONCE PO Last administered on 08/23/18at 23:54; Start 08/23/18 at 23:30; Stop 08/23/18 at 23:31; Status DC Aspirin (Children'S Aspirin) 81 mg DAILY PO Last administered on 08/25/18at 08:46; Start 08/24/18 at 09:00 Atorvastatin Calcium (Lipitor) 80 mg HS PO Last administered on 08/25/18at 21:35; Start 08/24/18 at 21:00 Acetaminophen/ Hydrocodone Bitart (Lortab 7.5/325) 1 tab PRN Q6HRS PRN PO MODERATE PAIN; Start 08/23/18 at 23:15 Lisinopril (Prinivil) 10 mg DAILY PO Last administered on 08/25/18 08:47; Start 08/24/18 at 09:00 Insulin Glargine (Lantus) 20 units QHS SQ ; Start 08/24/18 at 21:00; Stop 08/24/18 at 21:00; Status DC Insulin Human Lispro (HumaLOG) 20 units BIDWMEALS SQ Last administered on 08/25/18at 08:50; Start 08/24/18 at 08:00 Non-Formulary Medication (Metoprolol Succinate (Toprol Xl)) 100 mg DAILY PO ; Start 08/24/18 at 09:00; Status UNV Fish Oil (Fish Oil) 1,000 mg BID PO Last administered on 08/25/18 21:35; Start 08/24/18 at 09:00 Rivaroxaban (Xarelto) 20 mg DAILYWSUP PO Last administered on 08/25/18 16:59; Start 08/24/18 at 17:00 Gabapentin (Neurontin) 600 mg QHS PO Last administered on 08/25/18 21:35; Start 08/24/18 at 21:00 Info (Anti-Coagulation Monitoring By Pharmacy) 1 each PRN DAILY PRN MC SEE COMMENTS Last administered on 08/25/18at 11:00; Start 08/23/18 at 23:45 Insulin Glargine (Lantus) 30 units QHS SQ Last administered on 08/25/18 21:40; Start 08/24/18 at 21:00 Metoprolol Tartrate (Lopressor) 25 mg BID PO ; Start 08/24/18 at 09:00; Stop 08/24/18 at 11:09; Status DC Metformin HCl (Glucophage Xr) 1,000 mg HS PO Last administered on 08/25/18at 21:36; Start 08/24/18 at 21:00 Dextrose (Dextrose 50%-Water Syringe) 12.5 gm PRN Q15MIN PRN IV SEE COMMENTS; Start 08/24/18 at 01:30 Ondansetron HCl (Zofran) 4 mg PRN Q6HRS PRN IV NAUSEA/VOMITING Last administered on 08/24/18 08:22; Start 08/24/18 at 08:15 Furosemide (Lasix) 40 mg 1X ONCE IVP Last administered on 08/24/18 09:22; Start 08/24/18 at 09:30; Stop 08/24/18 at 09:31; Status DC Iron Sucrose 200 mg/Sodium Chloride 110 ml @ 55 mls/hr 1X ONCE IV Last administered on 08/24/18at 09:59; Start 08/24/18 at 10:00; Stop 08/24/18 at 11:59; Status DC Metoprolol Tartrate (Lopressor) 12.5 mg BID PO Last administered on 08/24/18at 21:38; Start 08/24/18 at 11:30; Stop 08/25/18 at 08:45; Status DC Furosemide (Lasix) 40 mg 1X ONCE IVP Last administered on 08/24/18at 15:21; Start 08/24/18 at 15:30; Stop 08/24/18 at 15:31; Status DC Metoprolol Tartrate (Lopressor) 25 mg BID PO Last administered on 08/25/18at 08:58; Start 08/25/18 at 09:00; Stop 08/25/18 at 13:20; Status DC Metoprolol Tartrate (Lopressor) 12.5 mg 1X ONCE PO ; Start 08/25/18 at 09:00; Stop 08/25/18 at 09:01; Status Cancel Furosemide (Lasix) 40 mg 1X ONCE PO Last administered on 08/25/18at 11:15; Start 08/25/18 at 11:15; Stop 08/25/18 at 11:16; Status DC Metoprolol Succinate (Toprol Xl) 50 mg QPM PO Last administered on 08/25/18at 16:59; Start 08/25/18 at 18:00 Active Scripts Active Lortab 7.5-325 mg Tablet (Hydrocodone/Acetaminophen) 1 Each Tablet 1 Tab PO PRN Q6HRS PRN Reported Gabapentin 600 Mg Tablet 600 Mg PO HS Lantus (Insulin Glargine,Hum.rec.anlog) 100 Unit/1 Ml Vial 20 Unit SQ HS Fish Oil ([place]-3 Fatty Acids) 300 Mg Capsule 360 Mg PO BID Aspirin 81 Mg Tab.chew 81 Mg PO DAILY Xarelto (Rivaroxaban) 20 Mg Tablet 20 Mg PO DAILY Benazepril Hcl 10 Mg Tablet 10 Mg PO DAILY Toprol Xl (Metoprolol Succinate) 50 Mg Tab.er.24h 100 Mg PO DAILY Atorvastatin Calcium 40 Mg Tablet 80 Mg PO HS Humalog (Insulin Lispro) 100 Unit/1 Ml Cartridge 20 Unit SQ BIDAC Vitals/I & O Vital Sign - Last 24 Hours 08/25/18 08/25/18 08/25/18 08/25/18 08:47 08:58 11:09 15:19 Temp 98.3 97.9 98.3 97.9 Pulse 112 112 95 104 Resp 17 17 B/P (MAP) 151/91 151/91 162/86 (111) 165/89 (114) Pulse Ox 100 96 O2 Delivery Room Air Room Air 08/25/18 08/25/18 08/25/18 08/25/18 16:59 19:28 20:00 22:31 Temp 98.2 98.1 98.2 98.1 Pulse 112 112 99 Resp 18 18 B/P (MAP) 148/79 159/91 (113) 152/88 (109) Pulse Ox 96 97 O2 Delivery Room Air Room Air Room Air 08/26/18 08/26/18 03:10 07:34 Temp 98.1 97.7 98.1 97.7 Pulse 89 96 Resp 18 18 B/P (MAP) 160/84 (109) 171/89 (116) Pulse Ox 94 96 O2 Delivery Room Air Room Air Intake and Output 08/25/18 08/25/18 08/26/18 15:00 23:00 07:00 Intake Total 400 ml 320 ml 700 ml Output Total 320 ml 1500 ml Balance 80 ml -1180 ml 700 ml DINORAH DIALLO MD August 26, 2018 08:17
[2018-08-26] MEDS: ASPIRIN CHEWABLE 81 MG TABLET. PO SCH (08:57)
[2018-08-26] MEDS: OMEGA-3 FATTY ACIDS/FISH OIL 1,000 MG CAPSULE. PO SCH ×2 (08:57→20:20)
[2018-08-26] MEDS: LISINOPRIL 10 MG TABLET PO SCH (08:57)
[2018-08-26] MEDS: INSULIN LISPRO 300 UNITS/3 ML INSULN.PEN. SQ SCH ×2 (09:36→17:43)
[2018-08-26 11:00] VITALS: BP 121/70
--- NOTE | 2018-08-26 11:25 | NUR ---
SS following up with discharge planning. No discharge needs noted at this time. Current discharge disposition remains home. SS will continue to follow for pending discharge needs.
[2018-08-26] MEDS: FUROSEMIDE 40 MG/4 ML VIAL. IVP SCH ×2 (12:45→17:37)
--- NOTE | 2018-08-26 13:54 | PDOC ---
CARDIO Progress Notes Date and Time Date of Service 08/26/2018 Time of Evaluation 1330 Subjective Subjective: No Chest Pain, No shortness of breath, No Palpitations Vitals Vitals Vital Signs Date Time Temp Pulse Resp B/P (MAP) Pulse Ox O2 Delivery O2 Flow Rate FiO2 08/26/18 11:00 98.3 88 18 121/70 (87) 98 Room Air 98.3 Weight Weight [ ] Input and Output Intake and Output Intake and Output 08/26/18 06:59 Intake Total 1420 ml Output Total 1820 ml Balance -400 ml Intake Oral 1420 ml Output Urine Total 1820 ml # Voids 4 Laboratory Labs Laboratory Tests Test 08/25/18 16:45 08/25/18 20:24 08/26/18 07:12 08/26/18 11:14 Glucose (Fingerstick) 70 mg/dL (70-99) 127 mg/dL (70-99) 90 mg/dL (70-99) 84 mg/dL (70-99) Physical Exam HEENT: Neck Supple W Full Motion Chest: Symmetric LUNGS: Other (diminsihed bases) Heart: S1S2, irregularly irregular (AFIB rate 115) Abdomen: Soft N/T Extremities: Other (trace LE edema) Neurology: alert, oriented, follow commands Assessment Assessment 1. Acute on chronic systolic HF; compensated 2. Permanent AFIB, with RVR; noted with mary episodes as well while on cardizem. Bursts of RVR with exertion, rate controlled otherwise 3. ICM; LVEF 45% from echo 04/12 compensated 4. CAD s/p CABG x3 2006 and PCI/stent in 2008, CP free 5. Hypertension; better 5. Hyperlipidemia; statin 6. Diabetes, II; as per PCP 7. Anemia, iron deficiency; s/p iron replacement Recommendations Start toprol XL 75 mg tonight Consider outpatient event monitor to evaluate for tachy/mary Xarelto for stroke prevention Mild diuresis Secondary prevention; continue ASA, statin, BB, ACEi Consider outpatient ischemic workup if none leobardo recently NIKKI JARVIS IMPLEMENTATION PROJECT COORDINATOR August 26, 2018 13:54
[2018-08-26] MEDS ORDERED: DIGOXIN IV 500 MCG/2 ML AMPUL. IV ONE (14:00)
[2018-08-26] MEDS: ANTI-COAG MONITOR BY PHARMACY. MC PRN (14:24)
[2018-08-26 15:32] VITALS: BP 179/109
[2018-08-26] MEDS: RIVAROXABAN 10 MG TABLET. PO SCH (17:34)
[2018-08-26] MEDS ORDERED: METOPROLOL SUCC 24HR ER 25 MG TAB.ER.24H. PO SCH (18:00)
[2018-08-26 19:24] VITALS: BP 161/70
[2018-08-26] MEDS: ATORVASTATIN CALCIUM 40 MG TABLET. PO SCH (20:20)
[2018-08-26] MEDS: GABAPENTIN 300 MG CAPSULE. PO SCH (20:20)
[2018-08-26] MEDS: metFORMIN XR 500 MG TAB.ER.24H PO SCH (20:20)
[2018-08-26] MEDS: INSULIN GLARGINE 300 UNITS/3 ML INSULN.PEN. SQ SCH (21:30)
[2018-08-26 22:36] VITALS: BP 153/76
[2018-08-27 02:29] VITALS: BP 140/82
[2018-08-27 07:20] VITALS: BP 138/94
[2018-08-27] MEDS: ASPIRIN CHEWABLE 81 MG TABLET. PO SCH (08:22)
[2018-08-27] MEDS: FUROSEMIDE 40 MG/4 ML VIAL. IVP SCH ×2 (08:22→14:33)
[2018-08-27] MEDS: LISINOPRIL 10 MG TABLET PO SCH (08:22)
[2018-08-27] MEDS: INSULIN LISPRO 300 UNITS/3 ML INSULN.PEN. SQ SCH (08:27)
[2018-08-27] MEDS: OMEGA-3 FATTY ACIDS/FISH OIL 1,000 MG CAPSULE. PO SCH (08:54)
[2018-08-27] MEDS: ANTI-COAG MONITOR BY PHARMACY. MC PRN (10:23)
[2018-08-27 11:10] VITALS: BP 126/64
[2018-08-27] MEDS ORDERED: METO-269 PO (13:02)
[2018-08-27] MEDS ORDERED: POTA20TA82 PO (13:02)
[2018-08-27] MEDS ORDERED: FURO-68 PO (13:02)
[2018-08-27] MEDS ORDERED: METF500T3 PO (13:02)
--- NOTE | 2018-08-27 13:08 | PDOC3 ---
Discharge Summary Visit Information Date of Admission: Aug 23, 2018 Date of Discharge: August 27, 2018 Admitting Diagnosis: Afib with RVR, Acute systolic CHF exacerbation Final Diagnosis Problems Medical Problems: (1) Atrial fibrillation with RVR Status: Acute (2) Dyspnea Status: Acute Brief Hospital Course Allergies Allergies Coded Allergies Type Severity Reaction Last Updated Verified I S O L A T I O N *CONTACT* Allergy Unknown 02/27/16 Yes No Known Medication Allergies Allergy Unknown 02/27/16 Yes Vital Signs Vital Signs Date Time Temp Pulse Resp B/P (MAP) Pulse Ox O2 Delivery O2 Flow Rate FiO2 08/27/18 11:10 98.0 91 16 126/64 (84) 100 Room Air 98.0 Lab Results Laboratory Tests Test 08/25/18 16:45 08/25/18 20:24 08/26/18 07:12 08/26/18 11:14 Glucose (Fingerstick) 70 mg/dL (70-99) 127 mg/dL (70-99) 90 mg/dL (70-99) 84 mg/dL (70-99) Test 08/26/18 16:30 08/26/18 20:30 08/26/18 21:25 08/27/18 07:24 Glucose (Fingerstick) 101 mg/dL (70-99) 66 mg/dL (70-99) 95 mg/dL (70-99) 75 mg/dL (70-99) Test 08/27/18 11:12 Glucose (Fingerstick) 61 mg/dL (70-99) Laboratory Tests Test 08/26/18 16:30 08/26/18 20:30 08/26/18 21:25 08/27/18 07:24 Glucose (Fingerstick) 101 mg/dL (70-99) 66 mg/dL (70-99) 95 mg/dL (70-99) 75 mg/dL (70-99) Test 08/27/18 11:12 Glucose (Fingerstick) 61 mg/dL (70-99) Brief Hospital Course Reed is a 67-year-old male admit for worsening shortness of breath over days, and he was markedly weak and shaky, noted dyspnea with activity for almost a week, found with Afib with RVR and CHF exacerbation as well as HTN urgency. Patient is denying any chest pain or palpitations. Patient denies any recent il lness. Patient states he does have history of A. fib and CHF 5/: Given oral diltiazem and metoprolol, became somewhat bradycardic, stopped diltiazem, changed to metoprolol only. 2: Overnight became tachy and hypertensive again. Feels ok now. Transferred to [facility] overnight. Lasix was not given 08/25, required more diuresis for the next 2 days, placed on toprol xl 75mg daily, xarelto, ROLLY, ASA, statin. Assessment/Plan Dyspnea on exertion - likely acute combined systolic and acute diastolic CHF - lasix IV given Atrial fibrillation with RVR - off cardizem gtt, changed to PO toprol XL, CV consult Microcytic anemia - iron low, will replace IV, likely needs w/u for GI bleed at some point Dm2 - a1c 8.8 on insulin, now on metformin Plan: Diurese daily with lasix on D/C. Needs further anemia w/u, he wishes to do this outpatient F/u cardiology recs, needs toprol XL or carvedilol for his CHF, will defer to cardiology recs on this, Greater than 30 minutes spent on discharge Vitals Vitals Vital Signs Date Time Temp Pulse Resp B/P (MAP) Pulse Ox O2 Delivery O2 Flow Rate FiO2 08/26/18 07:34 97.7 96 18 171/89 (116) 96 Room Air 97.7 Physical Exam General: Alert, Oriented X3, Cooperative, No acute distress Heart: Normal S1, Normal S2, No murmurs, Other (IRRR; AFIB rate 66) Abdomen: Soft Extremities: Normal pulses, Other (1+ bilateral LE edema ) Skin: No significant lesion Discharge Information Condition at Discharge: Improved Follow Up: Weeks Disposition/Orders: D/C to Home Scheduled Aspirin (Aspirin) 81 Mg Tab.chew, 81 MG PO DAILY, (Reported) Entered as Reported by: KEE CARRERA on 12/21/13853 Last Action: Continued on 08/23/182327 by Logan Ridley Atorvastatin Calcium (Atorvastatin Calcium) 40 Mg Tablet, 80 MG PO HS for hld, #30 Ref 0 (Reported) Entered as Reported by: KEE CARRERA on 12/21/13853 Last Action: Continued on 08/23/182327 by Logan Ridley Benazepril Hcl (Benazepril Hcl) 10 Mg Tablet, 10 MG PO DAILY, (Reported) Entered as Reported by: KEE CARRERA on 12/21/13853 Last Action: Converted on 08/23/182327 by Logan Ridley Furosemide (Lasix) 40 Mg Tablet, 1 TAB PO DAILY for CHF for 30 Days, #30 Ref 1 Prescribed by: DINORAH DIALLO MD on 08/27/18 1302 Gabapentin (Gabapentin) 600 Mg Tablet, 600 MG PO HS for NEUROGENIC PAIN, (Reported) Entered as Reported by: Logan Ridley on 08/23/182327 Last Taken: UNKNOWN on Unknown Date & Time Last Action: Converted on 08/23/182327 by Logan Ridley Insulin Glargine,Hum.rec.anlog (Lantus) 100 Unit/1 Ml Vial, 20 UNIT SQ HS for dm, (Reported) Entered as Reported by: Logan Ridley on 08/23/182325 Last Taken: UNKNOWN on Unknown Date & Time Last Action: Converted on 08/23/182327 by Logan Ridley Insulin Lispro (Humalog) 100 Unit/1 Ml Cartridge, 20 UNIT SQ BIDAC for dm, (Reported) Entered as Reported by: KEE CARRERA on 12/21/13853 Last Action: Converted on 08/23/182327 by Logan Ridley Metformin Hcl (Glucophage Xr) 500 Mg Tab.er.24h, 1,000 MG PO HS for DM2 for 30 D ays, #60 Prescribed by: DINORAH DIALLO MD on 08/27/18 1302 Metoprolol Succinate (Toprol Xl) 50 Mg Tab.er.24h, 75 MG PO DAILY for htn for 30 Days, #45 Ref 5 Prescribed by: DINORAH DIALLO MD on 08/27/18 1302 [place]-3 Fatty Acids (Fish Oil) 300 Mg Capsule, 360 MG PO BID for supplement , (Reported) Entered as Reported by: KEE CARRERA on 12/21/13853 Last Action: Converted on 08/23/182327 by Logan Ridley Potassium Chloride (Potassium Chloride) 20 Meq Tablet.er, 20 MEQ PO DAILY for CHF for 30 Days, #30 Prescribed by: DINORAH DIALLO MD on 08/27/18 1302 Rivaroxaban (Xarelto) 20 Mg Tablet, 20 MG PO DAILY for blood thinner , (Reported) Entered as Reported by: KEE CARRERA on 12/21/13 0854 Last Action: Converted on 08/23/182327 by Logan Ridley Scheduled PRN Hydrocodone/Acetaminophen (Lortab 7.5-325 mg Tablet) 1 Each Tablet, 1 TAB PO PRN Q6HRS PRN for PAIN, #60 Ref 0 Prescribed by: HOLLY MENDIOLA on 03/06/16 1126 Last Action: Continued on 08/23/182327 by DINORAH Malave MD August 27, 2018 13:08
--- NOTE | 2018-08-27 15:28 | NUR ---
Discharge Note: NUPUR BARR Discharge instructions and discharge home medications reviewed with Patient and a copy given. All questions have been answered and understanding verbalized.
== END 2018-08-27 15:00 | disposition home or self-care (01) | DRG 304 ==
LOC: ER 17:15 → 1 WEST ICU 20:30 → 2 NORTH 08-25 15:50
PROVIDERS: ADMIT Internal Medicine; ATTEND Internal Medicine
DX: I16.0 Hypertensive urgency (principal); I50.43 Acute on chronic combined systolic (congestive) and diastolic (congestive) heart failure; I11.0 Hypertensive heart disease with heart failure; I25.10 Atherosclerotic heart disease of native coronary artery without angina pectoris; E78.00 Pure hypercholesterolemia, unspecified; E11.9 Type 2 diabetes mellitus without complications; E78.5 Hyperlipidemia, unspecified; D50.9 Iron deficiency anemia, unspecified; M19.90 Unspecified osteoarthritis, unspecified site; I48.2 Chronic atrial fibrillation; Z95.1 Presence of aortocoronary bypass graft; Z95.5 Presence of coronary angioplasty implant and graft; Z79.4 Long term (current) use of insulin
CPT/HCPCS: 36415; 71045; 80053; 80061; 81001; 82962; 83036; 83540; 83550; 83735; 83880; 84145; 84443; 84484; 85007; 85025; 85610; 85730; 93005; J1756; J1815; J1940; J2405; 99285-25

== ENCOUNTER → 2019-05-26 | Day surgery (SDC) | payer MEDICARE ==
[~2019-05-26] MED LIST changes: -BENA10TA4 PO; +BENA10TA55 PO; +DEXTROSE 50% 25 GM / 50ML DISP.SYRIN. IV ONE; +FERR325T72 PO; +FURO-68 PO; +GABA600T7 PO; +IV DEXTROSE 5 %-0.45 % NACL 1,000 ML IV SCH; +IV RINGERS,LACTATED 1000ML 1,000 ML IV SCH; +LIDOCAINE 2% PF 5 ML VIAL. ONE; +LISI10TA2 PO; +METF500T3 PO; +PANT40TA77 PO; +POTA20TA4 PO; +PROPOFOL 20 ML IV ONE
[2019-05-26 12:01] VITALS: BP 133/57
== END | disposition home or self-care (01) ==
LOC: SURG 08:11
PROVIDERS: ATTEND Internal Medicine Gastroenterology
DX: D50.9 Iron deficiency anemia, unspecified (principal); K29.50 Unspecified chronic gastritis without bleeding; K22.8 Other specified diseases of esophagus; I48.91 Unspecified atrial fibrillation; I49.9 Cardiac arrhythmia, unspecified; I11.0 Hypertensive heart disease with heart failure; I50.9 Heart failure, unspecified; Z95.5 Presence of coronary angioplasty implant and graft; Z95.1 Presence of aortocoronary bypass graft; Z91.041 Radiographic dye allergy status; Z98.890 Other specified postprocedural states; Z79.899 Other long term (current) drug therapy
CPT/HCPCS: 43235; 82962; J2001; J2704; J7042

== ENCOUNTER 2020-05-05 22:07 | Inpatient (IN) | payer MEDICARE ==
[~2020-05-05] VITALS: Ht 180.3 cm; Wt 98.0 kg
[~2020-05-05 22:07] MED LIST changes: -CLIN150C14 PO; +CLIN150C15 PO; -DEXTROSE 50% 25 GM / 50ML DISP.SYRIN. IV ONE; -IV DEXTROSE 5 %-0.45 % NACL 1,000 ML IV SCH; -IV RINGERS,LACTATED 1000ML 1,000 ML IV SCH; -LIDOCAINE 2% PF 5 ML VIAL. ONE; +LISI10TA16 PO; -LISI10TA2 PO; -PROPOFOL 20 ML IV ONE
[2020-05-05] MEDS ORDERED: ONDANSETRON PF 4 MG/2 ML VIAL. IVP ONE (22:30)
--- NOTE | 2020-05-05 22:32 | PHYS DOC ---
Past Medical History Past Medical History: A-Fib, CAD, Diabetes-Type II, High Cholesterol, Hyp ertension, Other Additional Past Medical Histor: DDD Past Surgical History: Coronary Bypass Surgery, Tonsillectomy, Other Additional Past Surgical Histo: CARDIAC STENTS 2008, BACK SURGERY, TRIPLE BYPASS Smoking Status: Former Smoker Alcohol Use: Sober Drug Use: None General Adult HPI: HPI: Patient is a 69 year old male with history of A. fib, hypertension, high cholesterol, diabetes type 2, acid reflux, who presents to the ED today complaining of diarrhea that began earlier today as well as nausea and vomiting that began at 6 PM. Patient denies any abdominal pain. Denies any chest pain or shortness of breath. Patient is a poor historian unfortunately the is also poor historian Review of Systems: Review of Systems: Constitutional: Denies fever or chills. [] Eyes: Denies change in visual acuity. [] HENT: Denies nasal congestion or sore throat. [] Respiratory: Denies cough or shortness of breath. [] Cardiovascular: Denies chest pain or edema. [] GI: Reports nausea, vomiting and diarrhea, denies abdominal pain, bloody stools : Denies dysuria. [] Musculoskeletal: Denies back pain or joint pain. [] Integument: Denies rash. [] Neurologic: Denies headache, focal weakness or sensory changes. [] Psychiatric: Denies depression or anxiety. [] Heart Score: Risk Factors: Risk Factors: DM, Current or recent (<one month) smoker, HTN, HLP, family history of CAD, obesity. Risk Scores: Score 0 - 3: 2.5% MACE over next 6 weeks - Discharge Home Score 4 - 6: 20.3% MACE over next 6 weeks - Admit for Clinical Observation Score 7 - 10: 72.7% MACE over next 6 weeks - Early Invasive Strategies Current Medications: Current Medications Medications (Trade) Dose Ordered Sig/Mega Start Time Stop Time Status Last Admin Dose Admin Famotidine (Pepcid Vial) 20 mg 1X ONCE 05/05/20 22:30 05/05/20 22:31 UNV Ondansetron HCl (Zofran) 4 mg 1X ONCE 05/05/20 22:30 05/05/20 22:31 UNV Sodium Chloride 1,000 ml @ 1,000 mls/hr 1X ONCE 05/05/20 22:30 05/05/20 23:29 UNV Allergies: Allergies: Allergies Coded Allergies Type Severity Reaction Last Updated Verified I S O L A T I O N *CONTACT* Allergy Unknown 02/27/16 Yes No Known Medication Allergies Allergy Unknown 05/26/19 Yes Physical Exam: PE: Constitutional: Well developed, well nourished, no acute distress, non-toxic appearance. [] HENT: Normocephalic, atraumatic, bilateral external ears normal, oropharynx moist, no oral exudates, nose normal. [] Eyes: PERRLA, EOMI, conjunctiva normal, no discharge. [] Neck: Normal range of motion, no tenderness, supple, no stridor. [] Cardiovascular: Old healed surgical incision noted midline chest. Heart rate regular rhythm, no murmur [] Lungs & Thorax: Bilateral breath sounds clear to auscultation [] Abdomen: Bowel sounds normal, soft, no tenderness, no masses, no pulsatile masses. [] Skin: Warm, dry, no erythema, no rash. [] Back: No tenderness, no CVA tenderness. [] Extremities: No tenderness, no cyanosis, no clubbing, ROM intact, no edema. [] Neurologic: Alert and oriented X 3, normal motor function, normal sensory function, no focal deficits noted. [] Psychologic: Affect normal, judgement normal, mood normal. [] EKG: EK interpreted by Dr. Rasheed sinus rhythm heart rate 88 no STEMI [] Radiology/Procedures: Radiology/Procedures: [] Course & Med Decision Making: Course & Med Decision Making Pertinent Labs and Imaging studies reviewed. (See chart for details) This is a 69-year-old male patient presenting to the ED today complaining of diarrhea that began earlier today as well as vomiting and nausea that began this evening at 6 PM. Patient arrives in the ED with an emesis bag with emesis in it. He states he has tried zofran 4mg PO and 4mg IV with no relief. CBC with a normal WBC, hemoglobin 11.0 with hematocrit of 33.4, MCV 78 history of microcytic anemia. CMP with glucose of 349, anion gap is normal. Creatinine 1.6, BUN 27. Patient has no previous history of kidney failure or renal insufficiency. Patient was given IV fluids in the ED as well as Compazine and Pepcid. He will be admitted to the hospital. Dr. Rasheed will give the morning Report. GI consult was also replaced Hanna Disclaimer: Hanna Disclaimer: This electronic medical record was generated, in whole or in part, using a voice recognition dictation system. Departure Departure Impression: Primary Impression: Anemia Qualified Codes: D64.9 - Anemia, unspecified Additional Impressions: Nausea and vomiting Qualified Codes: R11.2 - Nausea with vomiting, unspecified Diarrhea Qualified Codes: R19.7 - Diarrhea, unspecified Hyperglycemia Person under investigation for COVID-19 Acute renal failure Qualified Codes: N17.9 - Acute kidney failure, unspecified Disposition: 09 ADMITTED INPT THIS HOSP Condition: STABLE Referrals: EBONY DEAN MD (PCP) ANGELITO MESA VOCATIONAL EVALUATOR May 05, 2020 22:32
[2020-05-05 22:37] LABS: BASO # 0.1 x10^3/uL (0.0-0.2); BASO % 1 % (0-3); EOS # 0.3 x10^3/uL (0.0-0.7); EOS % 5 % (0-3); HEMATOCRIT 33.4 % (39.0-53.0); LYMPH # 0.7 x10^3/uL (1.0-4.8); LYMPH % 12 % (24-48); MEAN CORPUSCULAR HEMOGLOBIN 26 pg (25-35); MEAN CORPUSCULAR HGB CONC 33 g/dL (31-37); MEAN CORPUSCULAR VOLUME 78 fL (79-100); MONO # 0.4 x10^3/uL (0.0-1.1); MONO % 6 % (0-9); NEUT # 4.5 x10^3/uL (1.8-7.7); NEUT % 75 % (31-73); PLATELET COUNT 161 x10^3/uL (140-400); RED BLOOD COUNT 4.26 x10^6/uL (4.30-5.70); RED CELL DISTRIBUTION WIDTH 16.3 % (11.5-14.5); WHITE BLOOD COUNT 5.9 x10^3/uL (4.0-11.0)
[2020-05-05] MEDS ORDERED: IV NORMAL SALINE 1000ML BAG 1,000 ML IV ONE (22:45)
[2020-05-05] MEDS ORDERED: FAMOTIDINE 20 MG/2 ML VIAL IVP ONE (22:45)
[2020-05-05] MEDS ORDERED: METOCLOPRAMIDE HCL 10 MG/2 ML VIAL. IVP ONE (22:45)
[2020-05-05 22:46] LABS: CALCIUM 8.4 mg/dL (8.5-10.1); CREATININE 1.6 mg/dL (0.7-1.3); GFR 43.1; POTASSIUM 4.2 mmol/L (3.5-5.1)
[2020-05-05 22:49] LABS: PROTHROMBIN TIME PATIENT 18.9 SEC (11.7-14.0)
[2020-05-05 22:52] LABS: ALBUMIN 3.3 g/dL (3.4-5.0); ALBUMIN/GLOBULIN RATIO 0.9 (1.0-1.7); MAGNESIUM 1.8 mg/dL (1.8-2.4); TOTAL BILIRUBIN 0.6 mg/dL (0.2-1.0); TOTAL PROTEIN 6.9 g/dL (6.4-8.2)
[2020-05-06] VITALS (8 sets, daily range): BP systolic 122–203; BP diastolic 61–107
[2020-05-06] MEDS ORDERED: ASPI-630 PO (00:36)
[2020-05-06] MEDS ORDERED: RIVA20TA2 PO (00:36)
--- NOTE | 2020-05-06 01:10 | NUR ---
The patient, NUPUR BARR, 69 y/o, M admitted by MARCIANO HERNANDEZ MD, was given written information regarding hospital policies, unit procedures and contact persons. patient transferred to floor via ED bed, assisted by ED staff member. Valuables were checked and noted. patient is currently laying in bed with eyes closed. call light is within reach of the patient. patient denies any needs at this time. this RN will continue to monitor the patient at this time.
--- NOTE | 2020-05-06 03:46 | EKG ---
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
--- NOTE | 2020-05-06 08:32 | PDOC1 ---
History and Physical Date of Admission Date of Admission DATE: 05/06/20 TIME: 08:31 Identification/Chief Complaint Chief Complaint 69 year old male with history of A. fib, hypertension, high cholesterol, diabetes type 2, acid reflux, who presented to the ED 1-10 complaining of diarrhea ,as well as nausea and vomiting that began at 6 PM. denies any abdominal pain. Denies any chest pain or shortness of breath. Patient is a poor historian NO COUGH, no vomiting overnight, no covid 19 known exposure Has a h/o AFIB on OAC with Xarelto and CAD on ASA. Past Medical History Past Medical History Past Medical History Past Medical History Past Medical History: A-Fib, CAD, Diabetes-Type II, High Cholesterol, Hypertension, Other Additional Past Medical Histor: DDD Past Surgical History: Coronary Bypass Surgery, Tonsillectomy, Other Additional Past Surgical Histo: CARDIAC STENTS 2007, BACK SURGERY, TRIPLE BYPASS Smoking Status: Former Smoker Alcohol Use: Sober Drug Use: None FHX HTN Cardiovascular: AFIB, CAD, CHF, HTN, Hyperlipidemia Pulmonary: No pertinent hx CENTRAL NERVOUS SYSTEM: Other GI: No pertinent hx, GERD, Gastritis Heme/Onc: No pertinent hx Hepatobiliary: No pertinent hx Psych: No pertinent hx Musculoskeletal: Osteoarthritis Rheumatologic: No pertinent hx Infectious disease: No pertinent hx Renal/: No pertinent hx Endocrine: No pertinent hx Past Surgical History Past Surgical History: CABG, Tonsillectomy, Other Family History Family History: Heart Disease Social History Smoke: No ALCOHOL: rare Drugs: None Current Problem List Problem List Problems Medical Problems: (1) Acute renal failure Status: Acute (2) Anemia Status: Acute (3) Diarrhea Status: Acute (4) Hyperglycemia Status: Acute (5) Nausea and vomiting Status: Acute (6) Person under investigation for COVID-19 Status: Acute Current Medications Current Medications Current Medications Famotidine (Pepcid Vial) 20 mg 1X ONCE IVP Last administered on 05/05/20at 22:45; Start 05/05/20 at 22:45; Stop 05/05/20 at 22:46; Status DC Ondansetron HCl (Zofran) 4 mg 1X ONCE IVP ; Start 05/05/20 at 22:30; Stop 05/05/20 at 22:31; Status UNV Sodium Chloride 1,000 ml @ 1,000 mls/hr 1X ONCE IV Last administered on 05/05/20at 22:45; Start 05/05/20 at 22:45; Stop 05/05/20 at 23:44; Status DC Metoclopramide HCl (Reglan Vial) 10 mg 1X ONCE IVP Last administered on 05/05/20at 22:45; Start 05/05/20 at 22:45; Stop 05/05/20 at 22:46; Status DC Active Scripts Active Pantoprazole Sodium (Pantoprazole Sodium) 40 Mg Tablet.dr 40 Mg PO DAILYAC 30 Days Feosol (Ferrous Sulfate) 325 Mg Tablet 325 Mg PO BIDWMEALS 30 Days Lasix (Furosemide) 40 Mg Tablet 1 Tab PO DAILY 30 Days Glucophage Xr (Metformin Hcl) 500 Mg Tab.er.24h 1,000 Mg PO HS 30 Days Toprol Xl (Metoprolol Succinate) 50 Mg Tab.er.24h 75 Mg PO DAILY 30 Days Reported Aspirin 81 Mg Tab.chew 1 Tab PO DAILY Xarelto (Rivaroxaban) 20 Mg Tablet 1 Tab PO DAILY 30 Days with food Gabapentin 600 Mg Tablet 600 Mg PO HS Lantus (Insulin Glargine,Hum.rec.anlog) 100 Unit/1 Ml Vial 20 Unit SQ HS Benazepril Hcl 10 Mg Tablet 10 Mg PO DAILY Atorvastatin Calcium 40 Mg Tablet 80 Mg PO HS Humalog (Insulin Lispro) 100 Unit/1 Ml Cartridge 20 Unit SQ BIDAC Allergies Allergies: Coded Allergies: I S O L A T I O N *CONTACT* (Verified Allergy, Unknown, 02/27/16) mrsa No Known Medication Allergies (Verified Allergy, Unknown, 05/26/19) ROS Review of System Constitutional: Denies fever or chills. [] Eyes: Denies change in visual acuity. [] HENT: Denies nasal congestion or sore throat. [] Respiratory: Denies cough or shortness of breath. [] Cardiovascular: Denies chest pain or edema. [] GI: Reports nausea, vomiting and diarrhea, denies abdominal pain, bloody stools : Denies dysuria. [] Musculoskeletal: Denies back pain or joint pain. [] Integument: Denies rash. [] Neurologic: Denies headache, focal weakness or sensory changes. [] Psychiatric: Denies depression or anxiety. [] 14 pt ros otherwise neg General: YES: Fatigue Gastrointestinal: Yes Vomiting Musculoskeletal: Yes Joint Stiffness Physical Exam Physical Exam Constitutional: Well developed, well nourished, no acute distress, non-toxic appearance. [] HENT: Normocephalic, atraumatic, bilateral external ears normal, oropharynx moist, no oral exudates, nose normal. [] Eyes: PERRLA, EOMI, conjunctiva normal, no discharge. [] Neck: Normal range of motion, no tenderness, supple, no stridor. [] Cardiovascular: Old healed surgical incision noted midline chest. Heart rate regular rhythm, no murmur [] Lungs & Thorax: Bilateral breath sounds clear to auscultation [] Abdomen: Bowel sounds normal, soft, no tenderness, no masses, no pulsatile masses. [] Skin: Warm, dry, no erythema, no rash. [] Back: No tenderness, no CVA tenderness. [] Extremities: No tenderness, no cyanosis, no clubbing, ROM intact, no edema. [] Neurologic: Alert and oriented X 3, normal motor function, normal sensory function, no focal deficits noted. [] Psychologic: Affect normal, judgment normal, mood normal. [] General: Cooperative HEENT: Atraumatic, EOMI Breasts: Not examined Abdomen: Soft Extremities: No cyanosis Neuro: Normal speech Vitals Vitals Vital Signs Date Time Temp Pulse Resp B/P (MAP) Pulse Ox O2 Delivery O2 Flow Rate FiO2 05/06/20 07:50 97.2 89 18 178/94 (122) 98 Room Air 97.2 Labs Labs Laboratory Tests Test 05/05/20 22:12 05/05/20 22:27 05/06/20 07:41 Glucose (Fingerstick) 357 mg/dL (70-99) 252 mg/dL (70-99) White Blood Count 5.9 x10^3/uL (4.0-11.0) Red Blood Count 4.26 x10^6/uL (4.30-5.70) Hemoglobin 11.0 g/dL (13.0-17.5) Hematocrit 33.4 % (39.0-53.0) Mean Corpuscular Volume 78 fL (79-100) Mean Corpuscular Hemoglobin 26 pg (25-35) Mean Corpuscular Hemoglobin Concent 33 g/dL (31-37) Red Cell Distribution Width 16.3 % (11.5-14.5) Platelet Count 161 x10^3/uL (140-400) Neutrophils (%) (Auto) 75 % (31-73) Lymphocytes (%) (Auto) 12 % (24-48) Monocytes (%) (Auto) 6 % (0-9) Eosinophils (%) (Auto) 5 % (0-3) Basophils (%) (Auto) 1 % (0-3) Neutrophils # (Auto) 4.5 x10^3/uL (1.8-7.7) Lymphocytes # (Auto) 0.7 x10^3/uL (1.0-4.8) Monocytes # (Auto) 0.4 x10^3/uL (0.0-1.1) Eosinophils # (Auto) 0.3 x10^3/uL (0.0-0.7) Basophils # (Auto) 0.1 x10^3/uL (0.0-0.2) Prothrombin Time 18.9 SEC (11.7-14.0) Prothromb Time International Ratio 1.6 (0.8-1.1) Sodium Level 139 mmol/L (136-145) Potassium Level 4.2 mmol/L (3.5-5.1) Chloride Level 102 mmol/L (98-107) Carbon Dioxide Level 30 mmol/L (21-32) Anion Gap 7 (6-14) Blood Urea Nitrogen 27 mg/dL (8-26) Creatinine 1.6 mg/dL (0.7-1.3) Estimated GFR (Cockcroft-Gault) 43.1 BUN/Creatinine Ratio 17 (6-20) Glucose Level 349 mg/dL (70-99) Calcium Level 8.4 mg/dL (8.5-10.1) Magnesium Level 1.8 mg/dL (1.8-2.4) Total Bilirubin 0.6 mg/dL (0.2-1.0) Aspartate Amino Transf (AST/SGOT) 16 U/L (15-37) Alanine Aminotransferase (ALT/SGPT) 20 U/L (16-63) Alkaline Phosphatase 137 U/L (46-116) Troponin I Quantitative 0.026 ng/mL (0.000-0.055) MW-Gon-X-Type Natriuretic Peptide 1561 pg/mL (0-124) Total Protein 6.9 g/dL (6.4-8.2) Albumin 3.3 g/dL (3.4-5.0) Albumin/Globulin Ratio 0.9 (1.0-1.7) Lipase 37 U/L (73-393) Thyroid Stimulating Hormone (TSH) 0.768 uIU/mL (0.358-3.74) Ethyl Alcohol Level < 10 mg/dL (0-10) Laboratory Tests Test 05/05/20 22:12 05/05/20 22:27 05/06/20 07:41 Glucose (Fingerstick) 357 mg/dL (70-99) 252 mg/dL (70-99) White Blood Count 5.9 x10^3/uL (4.0-11.0) Red Blood Count 4.26 x10^6/uL (4.30-5.70) Hemoglobin 11.0 g/dL (13.0-17.5) Hematocrit 33.4 % (39.0-53.0) Mean Corpuscular Volume 78 fL (79-100) Mean Corpuscular Hemoglobin 26 pg (25-35) Mean Corpuscular Hemoglobin Concent 33 g/dL (31-37) Red Cell Distribution Width 16.3 % (11.5-14.5) Platelet Count 161 x10^3/uL (140-400) Neutrophils (%) (Auto) 75 % (31-73) Lymphocytes (%) (Auto) 12 % (24-48) Monocytes (%) (Auto) 6 % (0-9) Eosinophils (%) (Auto) 5 % (0-3) Basophils (%) (Auto) 1 % (0-3) Neutrophils # (Auto) 4.5 x10^3/uL (1.8-7.7) Lymphocytes # (Auto) 0.7 x10^3/uL (1.0-4.8) Monocytes # (Auto) 0.4 x10^3/uL (0.0-1.1) Eosinophils # (Auto) 0.3 x10^3/uL (0.0-0.7) Basophils # (Auto) 0.1 x10^3/uL (0.0-0.2) Prothrombin Time 18.9 SEC (11.7-14.0) Prothromb Time International Ratio 1.6 (0.8-1.1) Sodium Level 139 mmol/L (136-145) Potassium Level 4.2 mmol/L (3.5-5.1) Chloride Level 102 mmol/L (98-107) Carbon Dioxide Level 30 mmol/L (21-32) Anion Gap 7 (6-14) Blood Urea Nitrogen 27 mg/dL (8-26) Creatinine 1.6 mg/dL (0.7-1.3) Estimated GFR (Cockcroft-Gault) 43.1 BUN/Creatinine Ratio 17 (6-20) Glucose Level 349 mg/dL (70-99) Calcium Level 8.4 mg/dL (8.5-10.1) Magnesium Level 1.8 mg/dL (1.8-2.4) Total Bilirubin 0.6 mg/dL (0.2-1.0) Aspartate Amino Transf (AST/SGOT) 16 U/L (15-37) Alanine Aminotransferase (ALT/SGPT) 20 U/L (16-63) Alkaline Phosphatase 137 U/L (46-116) Troponin I Quantitative 0.026 ng/mL (0.000-0.055) XD-Xrc-O-Type Natriuretic Peptide 1561 pg/mL (0-124) Total Protein 6.9 g/dL (6.4-8.2) Albumin 3.3 g/dL (3.4-5.0) Albumin/Globulin Ratio 0.9 (1.0-1.7) Lipase 37 U/L (73-393) Thyroid Stimulating Hormone (TSH) 0.768 uIU/mL (0.358-3.74) Ethyl Alcohol Level < 10 mg/dL (0-10) Images Images Surgery/Intervention CABG: Date: 2006 RISK FACTORS Hypertension Diabetes Previous smoker 2D DIMENSIONS RVDd 3.5 (2.9-3.5cm) Left Atrium(2D) 4.5 (1.6-4.0cm) IVSd 1.5 (0.7-1.1cm) Aortic Root(2D) 3.2 (2.0-3.7cm) LVDd 5.6 (3.9-5.9cm) LVOT Diameter 2.1 (1.8-2.4cm) PWd 1.1 (0.7-1.1cm) LVDs 4.0 (2.5-4.0cm) FS (%) 28.9 % SV 83.7 ml LVEF(%) 54.9 (>50%) Aortic Valve AoV Peak Bossman. 125.0cm/s AoV VTI 22.8cm AO Peak GR. 6.3mmHg LVOT Peak Bossman. 89.2cm/s AO Mean GR. 4mmHg HUMZA (VMAX) 2.46cm2 Mitral Valve MV E Velocity 125.2cm/s MV DECEL TIME 128ms MV A Velocity 24.4cm/s E/A Ratio 5.1 Tricuspid Valve TR P. Velocity 292cm/s RAP ESTIMATE 8mmHg TR Peak Gr. 34mmHg RVSP 42mmHg Pulmonary Vein S1 Velocity 28.1cm/s D2 Velocity 52.4cm/s PVa duration 90msec LEFT VENTRICLE The left ventricle is normal size. There is mild concentric left ventricular hypertrophy. Left ventricular systolic function is normal. The Ejection Fraction is 50-55%. There is normal LV segmental wall motion. Diastology indeterminate RIGHT VENTRICLE The right ventricle is mildly dilated. The right ventricle is borderline hypertrophied. The right ventricular systolic function is normal. ATRIA The left atrium is mildly dilated. The right atrium is mild to moderately dilated. The interatrial septum is intact with no evidence for an atrial septal defect or patent foramen ovale as noted on 2-D or Doppler imaging. AORTIC VALVE The aortic valve is thickened but opens well. Doppler and Color Flow revealed trace aortic regurgitation. There is no significant aortic valvular stenosis. MITRAL VALVE The mitral valve is normal in structure and function. There is no evidence of mitral valve prolapse. There is no mitral valve stenosis. Doppler and Color-flow revealed trace mitral regurgitation. TRICUSPID VALVE The tricuspid valve is normal in structure and function. Doppler and Color Flow revealed mild tricuspid regurgitation with an estimated PAP of 42 mmHg. There is no tricuspid valve prolapse or vegetation. There is no tricuspid valve stenosis. PULMONIC VALVE The pulmonary valve is normal in structure and function. Doppler and Color Flow revealed trace pulmonic valvular regurgitation. GREAT VESSELS The aortic root is normal in size. The IVC is dilated and collapses >50% with inspiration. PERICARDIAL EFFUSION There is no evidence of significant pericardial effusion. Critical Notification Critical Value: No <Conclusion> The left ventricle is normal size. Left ventricular systolic function is normal. The Ejection Fraction is 50-55%. There is mild concentric left ventricular hypertrophy. There is no significant aortic valvular stenosis. Doppler and Color Flow revealed trace aortic regurgitation. Doppler and Color-flow revealed trace mitral regurgitation. Doppler and Color Flow revealed mild tricuspid regurgitation with an estimated PAP of 42 mmHg. Signed by : Westley Gandhi MD Electronically Approved : 11/21/2018 10:48:23 VTE Prophylaxis Ordered VTE Prophylaxis Devices: Yes VTE Pharmacological Prophylaxi: Yes Assessment/Plan Assessment/Plan impression intractable nausea and vomiting Acute renal injury, vasomotor nephropathy Atrial fibrillation - PO toprol XARELTO , Microcytic anemia - iron low, had gi w/u last admit Dm2 - a1c 8.8 on insulin, now on metformin Regadenoson cardioisotope stress test showed small infarct involving the base to mid anterior wall without any ischemia.Abnormal septal wall motion secondary to CABG. The ejection fraction was calculated at 45%. 11/11 SB AVMS recently dx diarrhea PUI covid 19 hypertension hyperlipidemia hx CAD, CABG remote plan admit FEN - npo abd series now, acute PPX - SCDs FULL CODE Dispo - inpatient outpatient referral for ALAN closure device. Secondary prevention; statin, BB, ACEi A1C D/W RN Justifications for Admission Other Justification ALFONSO LAN MD May 06, 2020 08:32
--- NOTE | 2020-05-06 09:46 | PDOC2 ---
GI CONSULT Date of Service: DATE: 05/06/20 TIME: 09:45 Reason For Consult: n/v/d HPI: HPI: 69 y/o male admitted through ER. Poor historian. Describes some dizziness, vomiting, and diarrhea x 1 yesterday. No precipitating events. Feels better now. No recurrent vomiting or diarrhea, would like to eat. We have seen in the past for TONG. At that time was taking pantoprazole - he doesn't know if he takes this now. Previously reported normal colonoscopy w/ Dr. Corbin in 11/2018. Also had EGD and colonoscopy w/ Dr. Barfield in 04/2019 - I cannot view procedure reports. Denies reflux/heartburn, dysphagia, hematemesis, constipation, hematochezia, melena, change in appetite, or weight loss. Might have some abdominal "tenderness" - "just a little" - does not describe beyond this. No GB, liver, pancreas, or PUD history. Does know he takes Xarelto and ASA (h/o A Fib and CAD). Takes something for pain, not sure what. PMH: PMH: A Fib, CAD, CHF, HTN, HLD, OA, DM cardiac stents, CABG, tonsillectomy, back surgery FH: Family History: No pertinent hx (denies GI cancers) Social History: Smoke: Quit ALCOHOL: rare Drugs: None ROS: GEN: Denies fevers, chills, sweats HEENT: Denies blurred vision, sore throat CV: Denies chest pain RESP: Denies shortness of air, cough GI: Per HPI : Denies hematuria, dysuria ENDO: Denies weight changes NEURO: Denies confusion, dizziness MSK: Denies weakness, joint pain/swelling SKIN: Denies jaundice, pruritus Vitals: Vitals: Vital Signs Date Time Temp Pulse Resp B/P (MAP) Pulse Ox O2 Delivery O2 Flow Rate FiO2 05/06/20 07:50 97.2 89 18 178/94 (122) 98 Room Air 97.2 Labs: Labs: Laboratory Tests Test 05/05/20 22:12 05/05/20 22:27 05/06/20 07:41 Glucose (Fingerstick) 357 mg/dL (70-99) 252 mg/dL (70-99) White Blood Count 5.9 x10^3/uL (4.0-11.0) Red Blood Count 4.26 x10^6/uL (4.30-5.70) Hemoglobin 11.0 g/dL (13.0-17.5) Hematocrit 33.4 % (39.0-53.0) Mean Corpuscular Volume 78 fL (79-100) Mean Corpuscular Hemoglobin 26 pg (25-35) Mean Corpuscular Hemoglobin Concent 33 g/dL (31-37) Red Cell Distribution Width 16.3 % (11.5-14.5) Platelet Count 161 x10^3/uL (140-400) Neutrophils (%) (Auto) 75 % (31-73) Lymphocytes (%) (Auto) 12 % (24-48) Monocytes (%) (Auto) 6 % (0-9) Eosinophils (%) (Auto) 5 % (0-3) Basophils (%) (Auto) 1 % (0-3) Neutrophils # (Auto) 4.5 x10^3/uL (1.8-7.7) Lymphocytes # (Auto) 0.7 x10^3/uL (1.0-4.8) Monocytes # (Auto) 0.4 x10^3/uL (0.0-1.1) Eosinophils # (Auto) 0.3 x10^3/uL (0.0-0.7) Basophils # (Auto) 0.1 x10^3/uL (0.0-0.2) Prothrombin Time 18.9 SEC (11.7-14.0) Prothromb Time International Ratio 1.6 (0.8-1.1) Sodium Level 139 mmol/L (136-145) Potassium Level 4.2 mmol/L (3.5-5.1) Chloride Level 102 mmol/L (98-107) Carbon Dioxide Level 30 mmol/L (21-32) Anion Gap 7 (6-14) Blood Urea Nitrogen 27 mg/dL (8-26) Creatinine 1.6 mg/dL (0.7-1.3) Estimated GFR (Cockcroft-Gault) 43.1 BUN/Creatinine Ratio 17 (6-20) Glucose Level 349 mg/dL (70-99) Calcium Level 8.4 mg/dL (8.5-10.1) Magnesium Level 1.8 mg/dL (1.8-2.4) Total Bilirubin 0.6 mg/dL (0.2-1.0) Aspartate Amino Transf (AST/SGOT) 16 U/L (15-37) Alanine Aminotransferase (ALT/SGPT) 20 U/L (16-63) Alkaline Phosphatase 137 U/L (46-116) Troponin I Quantitative 0.026 ng/mL (0.000-0.055) JR-Ppm-Z-Type Natriuretic Peptide 1561 pg/mL (0-124) Total Protein 6.9 g/dL (6.4-8.2) Albumin 3.3 g/dL (3.4-5.0) Albumin/Globulin Ratio 0.9 (1.0-1.7) Lipase 37 U/L (73-393) Thyroid Stimulating Hormone (TSH) 0.768 uIU/mL (0.358-3.74) Ethyl Alcohol Level < 10 mg/dL (0-10) Allergies: Coded Allergies: I S O L A T I O N *CONTACT* (Verified Allergy, Unknown, 02/27/16) mrsa No Known Medication Allergies (Verified Allergy, Unknown, 05/26/19) Medications: Current Medications Medications (Trade) Dose Ordered Sig/Mega Route PRN Reason Start Time Stop Time Status Last Admin Dose Admin Famotidine (Pepcid Vial) 20 mg 1X ONCE IVP 05/05/20 22:45 05/05/20 22:46 DC 05/05/20 22:45 Sodium Chloride 1,000 ml @ 1,000 mls/hr 1X ONCE IV 05/05/20 22:45 05/05/20 23:44 DC 05/05/20 22:45 Metoclopramide HCl (Reglan Vial) 10 mg 1X ONCE IVP 05/05/20 22:45 05/05/20 22:46 DC 05/05/20 22:45 PE: GEN: NAD - was sleeping - bit difficult to rouse HEENT: Atraumatic, PERRL LUNGS: CTAB HEART: RRR ABD: quiet BS, soft, epigastric discomfort EXTREMITY: No edema SKIN: No rashes, no jaundice NEURO/PSYCH: A & O 3 A/P: A/P: Dizziness, vomiting, diarrhea - better Upper abd discomfort - nonspecific Microcytic anemia (better than in past) - h/o TONG - ?taking iron Coagulopathy (INR 1.6), KELSI, elevated BNP, hyperglycemia, elevated Alk Phos (noted in past) CAD on Xarelto and ASA HTN - per primary -- COVID pending. Acute abdominal series ordered yesterday - not done - await this. Try diet. Observe for diarrhea - C Diff ordered, will add enteric panel (along w/ previously ordered C Diff). Agree w/ PPI though has ordered twice - will stop one. Will review recent EGD and colonoscopy findings. QUINN PICKARD May 06, 2020 09:46
[2020-05-06] MEDS ORDERED: SODIUM PHOSPHATES 19/7GM 133 ML ENEMA. PR PRN (10:15)
[2020-05-06] MEDS ORDERED: MAG HYDROX/ALUMINUM HYD/SIMETH 30 ML ORAL.SUSP PO PRN (10:15)
[2020-05-06] MEDS ORDERED: DOCUSATE SODIUM 100 MG CAPSULE. PO PRN (10:15)
[2020-05-06] MEDS ORDERED: LORazepam 0.5 MG TABLET PO PRN (10:15)
[2020-05-06] MEDS ORDERED: ACETAMINOPHEN 325 MG TABLET. PO PRN (10:15)
[2020-05-06] MEDS ORDERED: 0.9 % SODIUM CHLORIDE 10 ML DISP.SYRIN. IV PRN (10:15)
[2020-05-06] MEDS ORDERED: ALBUTEROL SULFATE 2.5 MG/3 ML NEBU. NEB PRN (10:15)
[2020-05-06] MEDS ORDERED: ONDANSETRON PF 4 MG/2 ML VIAL. IV PRN (10:15)
[2020-05-06] MEDS ORDERED: cloNIDine HCL 0.1 MG TABLET PO PRN (10:15)
[2020-05-06] MEDS ORDERED: DEXTROSE 50% 25 GM / 50ML DISP.SYRIN. IV PRN (10:15)
[2020-05-06] MEDS ORDERED: guaiFENesin ORAL 200 MG/10 ML LIQUID. PO PRN (10:15)
[2020-05-06] MEDS: PANTOPRAZOLE 40 MG TABLET.DR. PO SCH (10:44)
[2020-05-06] MEDS: IV NORMAL SALINE 1000ML BAG 1,000 ML IV SCH ×2 (10:44→20:24)
[2020-05-06 10:46] LABS: CALCIUM 8.3 mg/dL (8.5-10.1); CREATININE 1.3 mg/dL (0.7-1.3); GFR 54.7; POTASSIUM 4.5 mmol/L (3.5-5.1)
[2020-05-06 10:47] LABS: BASO % 1 % (0-3); EOS # 0.2 x10^3/uL (0.0-0.7); EOS % 4 % (0-3); HEMATOCRIT 34.5 % (39.0-53.0); HEMOGLOBIN 11.2 g/dL (13.0-17.5); LYMPH # 0.8 x10^3/uL (1.0-4.8); LYMPH % 15 % (24-48); MEAN CORPUSCULAR HEMOGLOBIN 26 pg (25-35); MEAN CORPUSCULAR HGB CONC 33 g/dL (31-37); MEAN CORPUSCULAR VOLUME 79 fL (79-100); MONO # 0.3 x10^3/uL (0.0-1.1); MONO % 6 % (0-9); NEUT # 4.1 x10^3/uL (1.8-7.7); NEUT % 75 % (31-73); PLATELET COUNT 161 x10^3/uL (140-400); RED BLOOD COUNT 4.38 x10^6/uL (4.30-5.70); RED CELL DISTRIBUTION WIDTH 16.2 % (11.5-14.5); WHITE BLOOD COUNT 5.5 x10^3/uL (4.0-11.0)
[2020-05-06] MEDS: METOPROLOL SUCC 24HR ER 25 MG TAB.ER.24H. PO SCH (11:39)
[2020-05-06] MEDS: ASPIRIN CHEWABLE 81 MG TABLET. PO SCH (11:39)
[2020-05-06] MEDS: INSULIN LISPRO 300 UNITS/3 ML VIAL. SQ SCH ×2 (11:44→16:55)
[2020-05-06 14:43] LABS: BILIRUBIN,URINE SMALL (NEG); CLARITY,URINE CLEAR; COLOR,URINE YELLOW; NITRITE,URINE NEGATIVE (NEG); PH,URINE 5.5 (<5.0-8.0); PROTEIN,URINE 100 mg/dL (NEG-TRACE)
[2020-05-06 15:06] LABS: BARBITURATES NEG (NEG); BENZODIAZEPINES NEG (NEG); CANNABINOIDS POS (NEG); COCAINE NEG (NEG); METHADONE NEG (NEG); OPIATES NEG (NEG); PHENCYCLIDINE NEG (NEG)
[2020-05-06 15:09] LABS: AMPHETAMINE/METHAMPHETAMINE NEG (NEG)
[2020-05-06 15:28] LABS: HYALINE CASTS, URINE FEW /HPF
[2020-05-06 15:29] LABS: BACTERIA,URINE 0 /HPF (0-FEW); RBC,URINE OCC /HPF (0-2); WBC,URINE OCC /HPF (0-4)
--- NOTE | 2020-05-06 16:35 | RAD ---
XR ABDOMEN COMP ACUTE History: Reason: vomiting / Spl. Instructions: / History: Technique: Supine and upright views of the abdomen. Comparison: May 01, 2019 chest x-ray Findings: Linear bilateral opacities, likely atelectasis. No pleural effusion. Enlarged cardiac size, unchanged . Prior median sternotomy. No pneumothorax. No pneumoperitoneum. Mild small bowel gas. Air and stool scattered throughout the imaged colon. Mild colonic stool burden. Multilevel lumbar spondylosis. Impression: 1. Nonobstructed bowel gas pattern. Electronically signed by: Daren Parks DO (05/06/2020 4:33 PM) [facility]
[2020-05-06] MEDS: FERROUS SULFATE 325 MG TABLET. PO SCH (16:59)
[2020-05-06] MEDS: RIVAROXABAN 10 MG TABLET. PO SCH (16:59)
--- NOTE | 2020-05-06 17:20 | NUR ---
SW following for discharge planning. SW spoke with RN and reviewed chart. Pt currently on a clear liquid diet, room air, COVID negative. PT says pt independent. Discharge plan is home, self-care. SW available as needed.
[2020-05-06] MEDS: LABETALOL 20 MG/4 ML DISP.SYRIN. IVP PRN (20:28)
[2020-05-06] MEDS ORDERED: ATORVASTATIN CALCIUM 40 MG TABLET. PO SCH (21:00)
[2020-05-07 03:00] VITALS: BP 205/96
[2020-05-07 03:08] LABS: HEMOGLOBIN A1C 9.7 % (4.8-5.6)
[2020-05-07] MEDS: LABETALOL 20 MG/4 ML DISP.SYRIN. IVP PRN ×4 (03:59→12:25)
[2020-05-07 04:35] LABS: BILIRUBIN,URINE NEGATIVE (NEG); CLARITY,URINE CLEAR; COLOR,URINE YELLOW; NITRITE,URINE NEGATIVE (NEG); PH,URINE 5.5 (<5.0-8.0); PROTEIN,URINE 100 mg/dL (NEG-TRACE)
[2020-05-07 04:41] LABS: BACTERIA,URINE 0 /HPF (0-FEW)
[2020-05-07 04:42] LABS: WBC,URINE RARE /HPF (0-4)
[2020-05-07] MEDS ORDERED: PANTOPRAZOLE 40 MG TABLET.DR. PO SCH (07:30)
[2020-05-07 07:57] VITALS: BP 227/98
[2020-05-07] MEDS: ASPIRIN CHEWABLE 81 MG TABLET. PO SCH (08:15)
[2020-05-07] MEDS: FERROUS SULFATE 325 MG TABLET. PO SCH ×2 (08:15→16:50)
[2020-05-07] MEDS: PANTOPRAZOLE 40 MG TABLET.DR. PO SCH (08:16)
[2020-05-07] MEDS: METOPROLOL SUCC 24HR ER 25 MG TAB.ER.24H. PO SCH (08:16)
[2020-05-07] MEDS: INSULIN LISPRO 300 UNITS/3 ML VIAL. SQ SCH ×3 (08:17→16:48)
[2020-05-07] MEDS: IV NORMAL SALINE 1000ML BAG 1,000 ML IV SCH (08:17)
[2020-05-07 09:46] LABS: BASO % 1 % (0-3); EOS # 0.3 x10^3/uL (0.0-0.7); EOS % 5 % (0-3); HEMOGLOBIN 10.8 g/dL (13.0-17.5); LYMPH # 0.5 x10^3/uL (1.0-4.8); LYMPH % 11 % (24-48); MEAN CORPUSCULAR HEMOGLOBIN 26 pg (25-35); MEAN CORPUSCULAR HGB CONC 33 g/dL (31-37); MEAN CORPUSCULAR VOLUME 79 fL (79-100); MONO # 0.3 x10^3/uL (0.0-1.1); MONO % 6 % (0-9); NEUT % 78 % (31-73); PLATELET COUNT 142 x10^3/uL (140-400); RED BLOOD COUNT 4.18 x10^6/uL (4.30-5.70); RED CELL DISTRIBUTION WIDTH 16.3 % (11.5-14.5); WHITE BLOOD COUNT 5.1 x10^3/uL (4.0-11.0)
[2020-05-07 10:03] LABS: ALBUMIN/GLOBULIN RATIO 0.9 (1.0-1.7); CALCIUM 8.3 mg/dL (8.5-10.1); CREATININE 1.2 mg/dL (0.7-1.3); POTASSIUM 4.4 mmol/L (3.5-5.1); TOTAL BILIRUBIN 0.7 mg/dL (0.2-1.0); TOTAL PROTEIN 6.4 g/dL (6.4-8.2)
[2020-05-07 10:35] VITALS: BP 228/95
--- NOTE | 2020-05-07 10:50 | PDOC ---
Date of Service: DATE: 05/07/20 TIME: 10:44 Subjective: Subjective: Wants more than clears. No n/v, no abd pain, no diarrhea. Objective: Vital Signs: Vital Signs Date Time Temp Pulse Resp B/P (MAP) Pulse Ox O2 Delivery O2 Flow Rate FiO2 05/07/20 10:13 79 227/98 05/07/20 07:57 98.3 20 98 Room Air 98.3 Labs: Laboratory Tests Test 05/06/20 11:25 05/06/20 14:25 05/06/20 16:08 05/06/20 20:26 Glucose (Fingerstick) 229 mg/dL 296 mg/dL 265 mg/dL Urine Collection Type Unknown Urine Color Yellow Urine Clarity Clear Urine pH 5.5 Urine Specific [place] 1.025 Urine Protein 100 mg/dL Urine Glucose (UA) >=1000 mg/dL Urine Ketones (Stick) Negative mg/dL Urine Blood Negative Urine Nitrite Negative Urine Bilirubin Small Urine Urobilinogen Dipstick 1.0 mg/dL Urine Leukocyte Esterase Negative Urine RBC Occ /HPF Urine WBC Occ /HPF Urine Squamous Epithelial Cells Few /LPF Urine Bacteria 0 /HPF Urine Hyaline Casts Few /HPF Urine Mucus Slight /LPF Urine Opiates Screen Neg Urine Methadone Screen Neg Urine Barbiturates Neg Urine Phencyclidine Screen Neg Urine Amphetamine/Methamphetamine Neg Urine Benzodiazepines Screen Neg Urine Cocaine Screen Neg Urine Cannabinoids Screen Pos Urine Ethyl Alcohol Neg Test 05/07/20 04:26 05/07/20 07:37 05/07/20 09:20 Urine Collection Type Unknown Urine Color Yellow Urine Clarity Clear Urine pH 5.5 Urine Specific [place] 1.025 Urine Protein 100 mg/dL Urine Glucose (UA) 500 mg/dL Urine Ketones (Stick) Negative mg/dL Urine Blood Small Urine Nitrite Negative Urine Bilirubin Negative Urine Urobilinogen Dipstick 1.0 mg/dL Urine Leukocyte Esterase Negative Urine RBC 6-10 /HPF Urine WBC Rare /HPF Urine Squamous Epithelial Cells Few /LPF Urine Bacteria 0 /HPF Urine Mucus Slight /LPF Glucose (Fingerstick) 170 mg/dL White Blood Count 5.1 x10^3/uL Red Blood Count 4.18 x10^6/uL Hemoglobin 10.8 g/dL Hematocrit 33.0 % Mean Corpuscular Volume 79 fL Mean Corpuscular Hemoglobin 26 pg Mean Corpuscular Hemoglobin Concent 33 g/dL Red Cell Distribution Width 16.3 % Platelet Count 142 x10^3/uL Neutrophils (%) (Auto) 78 % Lymphocytes (%) (Auto) 11 % Monocytes (%) (Auto) 6 % Eosinophils (%) (Auto) 5 % Basophils (%) (Auto) 1 % Neutrophils # (Auto) 4.0 x10^3/uL Lymphocytes # (Auto) 0.5 x10^3/uL Monocytes # (Auto) 0.3 x10^3/uL Eosinophils # (Auto) 0.3 x10^3/uL Basophils # (Auto) 0.0 x10^3/uL Sodium Level 143 mmol/L Potassium Level 4.4 mmol/L Chloride Level 108 mmol/L Carbon Dioxide Level 25 mmol/L Anion Gap 10 Blood Urea Nitrogen 19 mg/dL Creatinine 1.2 mg/dL Estimated GFR (Cockcroft-Gault) 60.0 BUN/Creatinine Ratio 16 Glucose Level 306 mg/dL Calcium Level 8.3 mg/dL Total Bilirubin 0.7 mg/dL Aspartate Amino Transf (AST/SGOT) 16 U/L Alanine Aminotransferase (ALT/SGPT) 15 U/L Alkaline Phosphatase 137 U/L Total Protein 6.4 g/dL Albumin 3.0 g/dL Albumin/Globulin Ratio 0.9 BLOOD CULTURE Preliminary NO GROWTH AFTER 1 DAY PE: GEN: NAD - up in chair LUNGS: CTAB HEART: RRR ABD: NABS, S/ND/NT NEURO/PSYCH: A & O 3 A/P: Dizziness, vomiting, diarrhea, abd pain - resolved TONG (stable, recent 'scopes), hyperglycemia, elevated Alk Phos (stable) CAD on Xarelto and ASA HTN - BP 227/98 currently - defer to Dr. Sonya ALEXIS negative -- ADAT as ordered yesterday, continue iron and PPI. If continues without diarrhea, can cancel stool tests. Justicifation of Admission Dx: Justifications for Admission: Justification of Admission Dx: Yes QUINN PICKARD May 07, 2020 10:50
[2020-05-07 11:38] VITALS: BP 193/85
--- NOTE | 2020-05-07 11:38 | PDOC ---
PROGRESS NOTES Date of Service: DATE: 05/07/20 TIME: 11:38 Chief Complaint Chief Complaint VTE Prophylaxis Ordered VTE Prophylaxis Devices: Yes VTE Pharmacological Prophylaxi: Yes DISCHARGE DX Assessment/Plan impression intractable nausea and vomiting Acute renal injury, vasomotor nephropathy Atrial fibrillation - PO toprol XARELTO , Microcytic anemia - iron low, had gi w/u last admit Dm2 - a1c 8.8 on insulin, now on metformin Regadenoson cardioisotope stress test showed small infarct involving the base to mid anterior wall without any ischemia.Abnormal septal wall motion secondary to CABG. The ejection fraction was calculated at 45%. 11/11 SB AVMS recently dx diarrhea PUI covid 19 hypertension hyperlipidemia hx CAD, CABG remote TONG (stable, recent 'scopes), hyperglycemia, elevated Alk Phos (stable) CAD on Xarelto and ASA HTN - BP 227/98 currently UNCONTROLLED plan admit FEN - npo abd series now, acute PPX - SCDs FULL CODE Dispo - inpatient outpatient referral for ALAN closure device. Secondary prevention; statin, BB, ACEi A1C CARDIOLOGY CONSULT IV LABETALOL 20 MG Q 2 HRS PRN BP SUPPORT Restart lisinopril. Add norvasc. DC catapres. Continue po lasix. per cardiology May DC this evening if BP is controlled. Follow up in office on at 3 PM with TTE prior to visit D/W RN D/C PLANNING 33 MIN History of Present Illness History of Present Illness Identification/Chief Complaint Chief Complaint 69 year old male with history of A. fib, hypertension, high cholesterol, diabetes type 2, acid reflux, who presented to the ED 1-10 complaining of diarrhea ,as well as nausea and vomiting that began at 6 PM. denies any abdominal pain. Denies any chest pain or shortness of breath. Patient is a poor historian NO COUGH, no vomiting overnight, no covid 19 known exposure Has a h/o AFIB on OAC with Xarelto and CAD on ASA. Past Medical History Past Medical History Past Medical History Past Medical History Past Medical History: A-Fib, CAD, Diabetes-Type II, High Cholesterol, Hype rtension, Other Additional Past Medical Histor: DDD Past Surgical History: Coronary Bypass Surgery, Tonsillectomy, Other Additional Past Surgical Histo: CARDIAC STENTS 2008, BACK SURGERY, TRIPLE BYPASS Smoking Status: Former Smoker Alcohol Use: Sober Drug Use: None FHX HTN Cardiovascular: AFIB, CAD, CHF, HTN, Hyperlipidemia Pulmonary: No pertinent hx CENTRAL NERVOUS SYSTEM: Other GI: No pertinent hx, GERD, Gastritis Heme/Onc: No pertinent hx Hepatobiliary: No pertinent hx Psych: No pertinent hx Musculoskeletal: Osteoarthritis Rheumatologic: No pertinent hx Infectious disease: No pertinent hx Renal/: No pertinent hx Endocrine: No pertinent hx Past Surgical History Past Surgical History: CABG, Tonsillectomy, Other Family History Family History: Heart Disease Social History Smoke: No ALCOHOL: rare Drugs: None Current Problem List Problem List Problems Medical Problems: (1) Acute renal failure Status: Acute (2) Anemia Status: Acute (3) Diarrhea Status: Acute (4) Hyperglycemia Status: Acute (5) Nausea and vomiting Status: Acute (6) Person under investigation for COVID-19 Vitals Vitals Vital Signs Date Time Temp Pulse Resp B/P (MAP) Pulse Ox O2 Delivery O2 Flow Rate FiO2 05/07/20 10:13 79 227/98 05/07/20 07:57 98.3 20 98 Room Air 98.3 Physical Exam Physical Exam Constitutional: Well developed, well nourished, no acute distress, non-toxic appearance. [] HENT: Normocephalic, atraumatic, bilateral external ears normal, oropharynx moist, no oral exudates, nose normal. [] Eyes: PERRLA, EOMI, conjunctiva normal, no discharge. [] Neck: Normal range of motion, no tenderness, supple, no stridor. [] Cardiovascular: Old healed surgical incision noted midline chest. Heart rate regular rhythm, no murmur [] Lungs & Thorax: Bilateral breath sounds clear to auscultation [] Abdomen: Bowel sounds normal, soft, no tenderness, no masses, no pulsatile masses. [] Skin: Warm, dry, no erythema, no rash. [] Back: No tenderness, no CVA tenderness. [] Extremities: No tenderness, no cyanosis, no clubbing, ROM intact, no edema. [] Neurologic: Alert and oriented X 3, normal motor function, normal sensory function, no focal deficits noted. [] Psychologic: Affect normal, judgment normal, mood normal. [] General: Cooperative HEENT: Atraumatic, EOMI Breasts: Not examined Abdomen: Soft Extremities: No cyanosis Neuro: Normal speech General: Alert, Oriented X3, Cooperative, No acute distress Heart: Regular rate, Normal S1 Abdomen: Soft, No tenderness Extremities: No clubbing, No cyanosis, No edema Labs LABS XR ABDOMEN COMP ACUTE History: Reason: vomiting / Spl. Instructions: / History: Technique: Supine and upright views of the abdomen. Comparison: May 01, 2019 chest x-ray Findings: Linear bilateral opacities, likely atelectasis. No pleural effusion. Enlarged cardiac size, unchanged. Prior median sternotomy. No pneumothorax. No pneumoperitoneum. Mild small bowel gas. Air and stool scattered throughout the imaged colon. Mild colonic stool burden. Multilevel lumbar spondylosis. Impression: 1. Nonobstructed bowel gas pattern. Electronically signed by: Daren Nick DO (05/06/2020 4:33 PM) [facility] DICTATED and SIGNED BY: DAREN NICK DO DATE: 05/06/20 [id number] Mitral Valve MV E Velocity 125.2cm/s MV DECEL TIME 128ms MV A Velocity 24.4cm/s E/A Ratio 5.1 Tricuspid Valve TR P. Velocity 292cm/s RAP ESTIMATE 8mmHg TR Peak Gr. 34mmHg RVSP 42mmHg Pulmonary Vein S1 Velocity 28.1cm/s D2 Velocity 52.4cm/s PVa duration 90msec LEFT VENTRICLE The left ventricle is normal size. There is mild concentric left ventricular hypertrophy. Left ventricular systolic function is normal. The Ejection Fraction is 50-55%. There is normal LV segmental wall motion. Diastology indeterminate RIGHT VENTRICLE The right ventricle is mildly dilated. The right ventricle is borderline hypertrophied. The right ventricular systolic function is normal. ATRIA The left atrium is mildly dilated. The right atrium is mild to moderately dilated. The interatrial septum is intact with no evidence for an atrial septal defect or patent foramen ovale as noted on 2-D or Doppler imaging. AORTIC VALVE The aortic valve is thickened but opens well. Doppler and Color Flow revealed trace aortic regurgitation. There is no significant aortic valvular stenosis. MITRAL VALVE The mitral valve is normal in structure and function. There is no evidence of mitral valve prolapse. There is no mitral valve stenosis. Doppler and Color-flow revealed trace mitral regurgitation. TRICUSPID VALVE The tricuspid valve is normal in structure and function. Doppler and Color Flow revealed mild tricuspid regurgitation with an estimated PAP of 42 mmHg. There is no tricuspid valve prolapse or vegetation. There is no tricuspid valve stenosis. PULMONIC VALVE The pulmonary valve is normal in structure and function. Doppler and Color Flow revealed trace pulmonic valvular regurgitation. GREAT VESSELS The aortic root is normal in size. The IVC is dilated and collapses >50% with inspiration. PERICARDIAL EFFUSION There is no evidence of significant pericardial effusion. Critical Notification Critical Value: No <Conclusion> The left ventricle is normal size. Left ventricular systolic function is normal. The Ejection Fraction is 50-55%. There is mild concentric left ventricular hypertrophy. There is no significant aortic valvular stenosis. Doppler and Color Flow revealed trace aortic regurgitation. Doppler and Color-flow revealed trace mitral regurgitation. Doppler and Color Flow revealed mild tricuspid regurgitation with an estimated PAP of 42 mmHg. Laboratory Tests Test 05/06/20 14:25 05/06/20 16:08 05/06/20 20:26 05/07/20 04:26 Urine Collection Type Unknown Unknown Urine Color Yellow Yellow Urine Clarity Clear Clear Urine pH 5.5 (<5.0-8.0) 5.5 (<5.0-8.0) Urine Specific [place] 1.025 (1.000-1.030) 1.025 (1.000-1.030) Urine Protein 100 mg/dL (NEG-TRACE) 100 mg/dL (NEG-TRACE) Urine Glucose (UA) >=1000 mg/dL (NEG) 500 mg/dL (NEG) Urine Ketones (Stick) Negative mg/dL (NEG) Negative mg/dL (NEG) Urine Blood Negative (NEG) Small (NEG) Urine Nitrite Negative (NEG) Negative (NEG) Urine Bilirubin Small (NEG) Negative (NEG) Urine Urobilinogen Dipstick 1.0 mg/dL (0.2 mg/dL) 1.0 mg/dL (0.2 mg/dL) Urine Leukocyte Esterase Negative (NEG) Negative (NEG) Urine RBC Occ /HPF (0-2) 6-10 /HPF (0-2) Urine WBC Occ /HPF (0-4) Rare /HPF (0-4) Urine Squamous Epithelial Cells Few /LPF Few /LPF Urine Bacteria 0 /HPF (0-FEW) 0 /HPF (0-FEW) Urine Hyaline Casts Few /HPF Urine Mucus Slight /LPF Slight /LPF Urine Opiates Screen Neg (NEG) Urine Methadone Screen Neg (NEG) Urine Barbiturates Neg (NEG) Urine Phencyclidine Screen Neg (NEG) Urine Amphetamine/Methamphetamine Neg (NEG) Urine Benzodiazepines Screen Neg (NEG) Urine Cocaine Screen Neg (NEG) Urine Cannabinoids Screen Pos (NEG) Urine Ethyl Alcohol Neg (NEG) Glucose (Fingerstick) 296 mg/dL (70-99) 265 mg/dL (70-99) Test 05/07/20 07:37 05/07/20 09:20 Glucose (Fingerstick) 170 mg/dL (70-99) White Blood Count 5.1 x10^3/uL (4.0-11.0) Red Blood Count 4.18 x10^6/uL (4.30-5.70) Hemoglobin 10.8 g/dL (13.0-17.5) Hematocrit 33.0 % (39.0-53.0) Mean Corpuscular Volume 79 fL (79-100) Mean Corpuscular Hemoglobin 26 pg (25-35) Mean Corpuscular Hemoglobin Concent 33 g/dL (31-37) Red Cell Distribution Width 16.3 % (11.5-14.5) Platelet Count 142 x10^3/uL (140-400) Neutrophils (%) (Auto) 78 % (31-73) Lymphocytes (%) (Auto) 11 % (24-48) Monocytes (%) (Auto) 6 % (0-9) Eosinophils (%) (Auto) 5 % (0-3) Basophils (%) (Auto) 1 % (0-3) Neutrophils # (Auto) 4.0 x10^3/uL (1.8-7.7) Lymphocytes # (Auto) 0.5 x10^3/uL (1.0-4.8) Monocytes # (Auto) 0.3 x10^3/uL (0.0-1.1) Eosinophils # (Auto) 0.3 x10^3/uL (0.0-0.7) Basophils # (Auto) 0.0 x10^3/uL (0.0-0.2) Sodium Level 143 mmol/L (136-145) Potassium Level 4.4 mmol/L (3.5-5.1) Chloride Level 108 mmol/L (98-107) Carbon Dioxide Level 25 mmol/L (21-32) Anion Gap 10 (6-14) Blood Urea Nitrogen 19 mg/dL (8-26) Creatinine 1.2 mg/dL (0.7-1.3) Estimated GFR (Cockcroft-Gault) 60.0 BUN/Creatinine Ratio 16 (6-20) Glucose Level 306 mg/dL (70-99) Calcium Level 8.3 mg/dL (8.5-10.1) Total Bilirubin 0.7 mg/dL (0.2-1.0) Aspartate Amino Transf (AST/SGOT) 16 U/L (15-37) Alanine Aminotransferase (ALT/SGPT) 15 U/L (16-63) Alkaline Phosphatase 137 U/L (46-116) Total Protein 6.4 g/dL (6.4-8.2) Albumin 3.0 g/dL (3.4-5.0) Albumin/Globulin Ratio 0.9 (1.0-1.7) Assessment and Plan Assessmemt and Plan Problems Medical Problems: (1) Acute renal failure Status: Acute (2) Anemia Status: Acute (3) Diarrhea Status: Acute (4) Hyperglycemia Status: Acute (5) Nausea and vomiting Status: Acute (6) Person under investigation for COVID-19 Status: Acute Comment Review of Relevant I have reviewed the following items yamilex (where applicable) has been applied. Labs Laboratory Tests Test 05/05/20 22:12 05/05/20 22:27 05/05/20 23:20 05/06/20 07:41 Glucose (Fingerstick) 357 mg/dL (70-99) 252 mg/dL (70-99) White Blood Count 5.9 x10^3/uL (4.0-11.0) Red Blood Count 4.26 x10^6/uL (4.30-5.70) Hemoglobin 11.0 g/dL (13.0-17.5) Hematocrit 33.4 % (39.0-53.0) Mean Corpuscular Volume 78 fL (79-100) Mean Corpuscular Hemoglobin 26 pg (25-35) Mean Corpuscular Hemoglobin Concent 33 g/dL (31-37) Red Cell Distribution Width 16.3 % (11.5-14.5) Platelet Count 161 x10^3/uL (140-400) Neutrophils (%) (Auto) 75 % (31-73) Lymphocytes (%) (Auto) 12 % (24-48) Monocytes (%) (Auto) 6 % (0-9) Eosinophils (%) (Auto) 5 % (0-3) Basophils (%) (Auto) 1 % (0-3) Neutrophils # (Auto) 4.5 x10^3/uL (1.8-7.7) Lymphocytes # (Auto) 0.7 x10^3/uL (1.0-4.8) Monocytes # (Auto) 0.4 x10^3/uL (0.0-1.1) Eosinophils # (Auto) 0.3 x10^3/uL (0.0-0.7) Basophils # (Auto) 0.1 x10^3/uL (0.0-0.2) Prothrombin Time 18.9 SEC (11.7-14.0) Prothromb Time International Ratio 1.6 (0.8-1.1) Sodium Level 139 mmol/L (136-145) Potassium Level 4.2 mmol/L (3.5-5.1) Chloride Level 102 mmol/L (98-107) Carbon Dioxide Level 30 mmol/L (21-32) Anion Gap 7 (6-14) Blood Urea Nitrogen 27 mg/dL (8-26) Creatinine 1.6 mg/dL (0.7-1.3) Estimated GFR (Cockcroft-Gault) 43.1 BUN/Creatinine Ratio 17 (6-20) Glucose Level 349 mg/dL (70-99) Calcium Level 8.4 mg/dL (8.5-10.1) Magnesium Level 1.8 mg/dL (1.8-2.4) Total Bilirubin 0.6 mg/dL (0.2-1.0) Aspartate Amino Transf (AST/SGOT) 16 U/L (15-37) Alanine Aminotransferase (ALT/SGPT) 20 U/L (16-63) Alkaline Phosphatase 137 U/L (46-116) Troponin I Quantitative 0.026 ng/mL (0.000-0.055) FO-Rkc-K-Type Natriuretic Peptide 1561 pg/mL (0-124) Total Protein 6.9 g/dL (6.4-8.2) Albumin 3.3 g/dL (3.4-5.0) Albumin/Globulin Ratio 0.9 (1.0-1.7) Lipase 37 U/L (73-393) Thyroid Stimulating Hormone (TSH) 0.768 uIU/mL (0.358-3.74) Ethyl Alcohol Level < 10 mg/dL (0-10) Coronavirus (PCR) Not detected (Not Detected) Test 05/06/20 09:35 05/06/20 11:25 05/06/20 14:25 05/06/20 16:08 White Blood Count 5.5 x10^3/uL (4.0-11.0) Red Blood Count 4.38 x10^6/uL (4.30-5.70) Hemoglobin 11.2 g/dL (13.0-17.5) Hematocrit 34.5 % (39.0-53.0) Mean Corpuscular Volume 79 fL (79-100) Mean Corpuscular Hemoglobin 26 pg (25-35) Mean Corpuscular Hemoglobin Concent 33 g/dL (31-37) Red Cell Distribution Width 16.2 % (11.5-14.5) Platelet Count 161 x10^3/uL (140-400) Neutrophils (%) (Auto) 75 % (31-73) Lymphocytes (%) (Auto) 15 % (24-48) Monocytes (%) (Auto) 6 % (0-9) Eosinophils (%) (Auto) 4 % (0-3) Basophils (%) (Auto) 1 % (0-3) Neutrophils # (Auto) 4.1 x10^3/uL (1.8-7.7) Lymphocytes # (Auto) 0.8 x10^3/uL (1.0-4.8) Monocytes # (Auto) 0.3 x10^3/uL (0.0-1.1) Eosinophils # (Auto) 0.2 x10^3/uL (0.0-0.7) Basophils # (Auto) 0.0 x10^3/uL (0.0-0.2) Sodium Level 145 mmol/L (136-145) Potassium Level 4.5 mmol/L (3.5-5.1) Chloride Level 107 mmol/L (98-107) Carbon Dioxide Level 29 mmol/L (21-32) Anion Gap 9 (6-14) Blood Urea Nitrogen 25 mg/dL (8-26) Creatinine 1.3 mg/dL (0.7-1.3) Estimated GFR (Cockcroft-Gault) 54.7 Glucose Level 224 mg/dL (70-99) Hemoglobin A1c 9.7 % (4.8-5.6) Calcium Level 8.3 mg/dL (8.5-10.1) Troponin I Quantitative 0.031 ng/mL (0.000-0.055) Glucose (Fingerstick) 229 mg/dL (70-99) 296 mg/dL (70-99) Urine Collection Type Unknown Urine Color Yellow Urine Clarity Clear Urine pH 5.5 (<5.0-8.0) Urine Specific [place] 1.025 (1.000-1.030) Urine Protein 100 mg/dL (NEG-TRACE) Urine Glucose (UA) >=1000 mg/dL (NEG) Urine Ketones (Stick) Negative mg/dL (NEG) Urine Blood Negative (NEG) Urine Nitrite Negative (NEG) Urine Bilirubin Small (NEG) Urine Urobilinogen Dipstick 1.0 mg/dL (0.2 mg/dL) Urine Leukocyte Esterase Negative (NEG) Urine RBC Occ /HPF (0-2) Urine WBC Occ /HPF (0-4) Urine Squamous Epithelial Cells Few /LPF Urine Bacteria 0 /HPF (0-FEW) Urine Hyaline Casts Few /HPF Urine Mucus Slight /LPF Urine Opiates Screen Neg (NEG) Urine Methadone Screen Neg (NEG) Urine Barbiturates Neg (NEG) Urine Phencyclidine Screen Neg (NEG) Urine Amphetamine/Methamphetamine Neg (NEG) Urine Benzodiazepines Screen Neg (NEG) Urine Cocaine Screen Neg (NEG) Urine Cannabinoids Screen Pos (NEG) Urine Ethyl Alcohol Neg (NEG) Test 05/06/20 20:26 05/07/20 04:26 05/07/20 07:37 1/12/21 09:20 Glucose (Fingerstick) 265 mg/dL (70-99) 170 mg/dL (70-99) Urine Collection Type Unknown Urine Color Yellow Urine Clarity Clear Urine pH 5.5 (<5.0-8.0) Urine Specific [place] 1.025 (1.000-1.030) Urine Protein 100 mg/dL (NEG-TRACE) Urine Glucose (UA) 500 mg/dL (NEG) Urine Ketones (Stick) Negative mg/dL (NEG) Urine Blood Small (NEG) Urine Nitrite Negative (NEG) Urine Bilirubin Negative (NEG) Urine Urobilinogen Dipstick 1.0 mg/dL (0.2 mg/dL) Urine Leukocyte Esterase Negative (NEG) Urine RBC 6-10 /HPF (0-2) Urine WBC Rare /HPF (0-4) Urine Squamous Epithelial Cells Few /LPF Urine Bacteria 0 /HPF (0-FEW) Urine Mucus Slight /LPF White Blood Count 5.1 x10^3/uL (4.0-11.0) Red Blood Count 4.18 x10^6/uL (4.30-5.70) Hemoglobin 10.8 g/dL (13.0-17.5) Hematocrit 33.0 % (39.0-53.0) Mean Corpuscular Volume 79 fL (79-100) Mean Corpuscular Hemoglobin 26 pg (25-35) Mean Corpuscular Hemoglobin Concent 33 g/dL (31-37) Red Cell Distribution Width 16.3 % (11.5-14.5) Platelet Count 142 x10^3/uL (140-400) Neutrophils (%) (Auto) 78 % (31-73) Lymphocytes (%) (Auto) 11 % (24-48) Monocytes (%) (Auto) 6 % (0-9) Eosinophils (%) (Auto) 5 % (0-3) Basophils (%) (Auto) 1 % (0-3) Neutrophils # (Auto) 4.0 x10^3/uL (1.8-7.7) Lymphocytes # (Auto) 0.5 x10^3/uL (1.0-4.8) Monocytes # (Auto) 0.3 x10^3/uL (0.0-1.1) Eosinophils # (Auto) 0.3 x10^3/uL (0.0-0.7) Basophils # (Auto) 0.0 x10^3/uL (0.0-0.2) Sodium Level 143 mmol/L (136-145) Potassium Level 4.4 mmol/L (3.5-5.1) Chloride Level 108 mmol/L (98-107) Carbon Dioxide Level 25 mmol/L (21-32) Anion Gap 10 (6-14) Blood Urea Nitrogen 19 mg/dL (8-26) Creatinine 1.2 mg/dL (0.7-1.3) Estimated GFR (Cockcroft-Gault) 60.0 BUN/Creatinine Ratio 16 (6-20) Glucose Level 306 mg/dL (70-99) Calcium Level 8.3 mg/dL (8.5-10.1) Total Bilirubin 0.7 mg/dL (0.2-1.0) Aspartate Amino Transf (AST/SGOT) 16 U/L (15-37) Alanine Aminotransferase (ALT/SGPT) 15 U/L (16-63) Alkaline Phosphatase 137 U/L (46-116) Total Protein 6.4 g/dL (6.4-8.2) Albumin 3.0 g/dL (3.4-5.0) Albumin/Globulin Ratio 0.9 (1.0-1.7) Laboratory Tests Test 05/06/20 14:25 05/06/20 16:08 05/06/20 20:26 05/07/20 04:26 Urine Collection Type Unknown Unknown Urine Color Yellow Yellow Urine Clarity Clear Clear Urine pH 5.5 (<5.0-8.0) 5.5 (<5.0-8.0) Urine Specific [place] 1.025 (1.000-1.030) 1.025 (1.000-1.030) Urine Protein 100 mg/dL (NEG-TRACE) 100 mg/dL (NEG-TRACE) Urine Glucose (UA) >=1000 mg/dL (NEG) 500 mg/dL (NEG) Urine Ketones (Stick) Negative mg/dL (NEG) Negative mg/dL (NEG) Urine Blood Negative (NEG) Small (NEG) Urine Nitrite Negative (NEG) Negative (NEG) Urine Bilirubin Small (NEG) Negative (NEG) Urine Urobilinogen Dipstick 1.0 mg/dL (0.2 mg/dL) 1.0 mg/dL (0.2 mg/dL) Urine Leukocyte Esterase Negative (NEG) Negative (NEG) Urine RBC Occ /HPF (0-2) 6-10 /HPF (0-2) Urine WBC Occ /HPF (0-4) Rare /HPF (0-4) Urine Squamous Epithelial Cells Few /LPF Few /LPF Urine Bacteria 0 /HPF (0-FEW) 0 /HPF (0-FEW) Urine Hyaline Casts Few /HPF Urine Mucus Slight /LPF Slight /LPF Urine Opiates Screen Neg (NEG) Urine Methadone Screen Neg (NEG) Urine Barbiturates Neg (NEG) Urine Phencyclidine Screen Neg (NEG) Urine Amphetamine/Methamphetamine Neg (NEG) Urine Benzodiazepines Screen Neg (NEG) Urine Cocaine Screen Neg (NEG) Urine Cannabinoids Screen Pos (NEG) Urine Ethyl Alcohol Neg (NEG) Glucose (Fingerstick) 296 mg/dL (70-99) 265 mg/dL (70-99) Test 05/07/20 07:37 05/07/20 09:20 Glucose (Fingerstick) 170 mg/dL (70-99) White Blood Count 5.1 x10^3/uL (4.0-11.0) Red Blood Count 4.18 x10^6/uL (4.30-5.70) Hemoglobin 10.8 g/dL (13.0-17.5) Hematocrit 33.0 % (39.0-53.0) Mean Corpuscular Volume 79 fL (79-100) Mean Corpuscular Hemoglobin 26 pg (25-35) Mean Corpuscular Hemoglobin Concent 33 g/dL (31-37) Red Cell Distribution Width 16.3 % (11.5-14.5) Platelet Count 142 x10^3/uL (140-400) Neutrophils (%) (Auto) 78 % (31-73) Lymphocytes (%) (Auto) 11 % (24-48) Monocytes (%) (Auto) 6 % (0-9) Eosinophils (%) (Auto) 5 % (0-3) Basophils (%) (Auto) 1 % (0-3) Neutrophils # (Auto) 4.0 x10^3/uL (1.8-7.7) Lymphocytes # (Auto) 0.5 x10^3/uL (1.0-4.8) Monocytes # (Auto) 0.3 x10^3/uL (0.0-1.1) Eosinophils # (Auto) 0.3 x10^3/uL (0.0-0.7) Basophils # (Auto) 0.0 x10^3/uL (0.0-0.2) Sodium Level 143 mmol/L (136-145) Potassium Level 4.4 mmol/L (3.5-5.1) Chloride Level 108 mmol/L (98-107) Carbon Dioxide Level 25 mmol/L (21-32) Anion Gap 10 (6-14) Blood Urea Nitrogen 19 mg/dL (8-26) Creatinine 1.2 mg/dL (0.7-1.3) Estimated GFR (Cockcroft-Gault) 60.0 BUN/Creatinine Ratio 16 (6-20) Glucose Level 306 mg/dL (70-99) Calcium Level 8.3 mg/dL (8.5-10.1) Total Bilirubin 0.7 mg/dL (0.2-1.0) Aspartate Amino Transf (AST/SGOT) 16 U/L (15-37) Alanine Aminotransferase (ALT/SGPT) 15 U/L (16-63) Alkaline Phosphatase 137 U/L (46-116) Total Protein 6.4 g/dL (6.4-8.2) Albumin 3.0 g/dL (3.4-5.0) Albumin/Globulin Ratio 0.9 (1.0-1.7) Microbiology 05/06/20 Blood Culture - Preliminary, Resulted NO GROWTH AFTER 1 DAY Medications Current Medications Famotidine (Pepcid Vial) 20 mg 1X ONCE IVP Last administered on 05/05/20at 22:45; Start 05/05/20 at 22:45; Stop 05/05/20 at 22:46; Status DC Ondansetron HCl (Zofran) 4 mg 1X ONCE IVP ; Start 05/05/20 at 22:30; Stop 05/05/20 at 22:31; Status UNV Sodium Chloride 1,000 ml @ 1,000 mls/hr 1X ONCE IV Last administered on 05/05/20at 22:45; Start 05/05/20 at 22:45; Stop 05/05/20 at 23:44; Status DC Metoclopramide HCl (Reglan Vial) 10 mg 1X ONCE IVP Last administered on 05/05/20at 22:45; Start 05/05/20 at 22:45; Stop 05/05/20 at 22:46; Status DC Pantoprazole Sodium (Protonix) 40 mg DAILYAC PO Last administered on 05/07/20at 08:16; Start 05/06/20 at 10:00 Aspirin (Aspirin Chewable) 81 mg DAILY PO Last administered on 05/07/20at 08:15; Start 05/06/20 at 12:00 Atorvastatin Calcium (Lipitor) 80 mg HS PO Last administered on 05/06/20at 20:22; Start 05/06/20 at 21:00 Ferrous Sulfate (Feosol) 325 mg BIDWMEALS PO Last administered on 05/07/20at 0 8:15; Start 05/06/20 at 17:00 Pantoprazole Sodium (Protonix) 40 mg DAILYAC PO ; Start 05/07/20 at 07:30; Status Cancel Metoprolol Succinate (Toprol Xl) 75 mg DAILY PO Last administered on 05/07/20at 08:16; Start 05/06/20 at 12:00 Rivaroxaban (Xarelto) 20 mg DAILY16 PO Last administered on 05/06/20at 16:59; Start 05/06/20 at 16:00 Insulin Human Lispro (HumaLOG) 0-5 UNITS TIDWMEALS SQ Last administered on 05/07/20at 08:17; Start 05/06/20 at 12:00 Dextrose (Dextrose 50%-Water Syringe) 12.5 gm PRN Q15MIN PRN IV SEE COMMENTS; Start 05/06/20 at 10:15 Sodium Chloride (Normal Saline Flush) 3 ml QSHIFT PRN IV AFTER MEDS AND BLOOD DRAWS; Start 05/06/20 at 10:15 Sodium Chloride 1,000 ml @ 85 mls/hr [id number] IV Last administered on 05/07/20at 08:17; Start 05/06/20 at 10:15 Ondansetron HCl (Zofran) 4 mg PRN Q4HRS PRN IV NAUSEA/VOMITING; Start 05/06/20 at 10:15 Acetaminophen (Tylenol) 650 mg PRN Q4HRS PRN PO TEMP OVER 100.4F OR MILD PAIN; Start 05/06/20 at 10:15 Al Hydroxide/Mg Hydroxide (Mylanta Plus Xs) 30 ml PRN DAILY PRN PO HEARTBURN / GAS; Start 05/06/20 at 10:15 Clonidine HCl (Catapres) 0.1 mg PRN Q6HRS PRN PO SBP>160 OR DBP>90 Last ad ministered on 05/06/20at 14:35; Start 05/06/20 at 10:15 Sodium Monofluorophosphate (Fleet Adult) 133 ml PRN DAILY PRN [place] CONSTIPATION; Start 05/06/20 at 10:15 Docusate Sodium (Colace) 100 mg PRN BID PRN PO HARD STOOLS; Start 05/06/20 at 10:15 Albuterol Sulfate (Ventolin Neb Soln) 2.5 mg PRN Q4HRS PRN NEB SHORTNESS OF BREATH; Start 05/06/20 at 10:15 Guaifenesin (Robitussin) 200 mg PRN Q4HRS PRN PO COUGH; Start 05/06/20 at 10:15 Lorazepam (Ativan) 0.5 mg PRN Q4HRS PRN PO ANXIETY / AGITATION; Start 05/06/20 at 10:15 Labetalol HCl (Normodyne Iv Push) 20 mg PRN Q2HR PRN IVP HYPERTENSION Last administered on 05/07/20at 10:13; Start 05/06/20 at 10:15 Clonidine HCl (Catapres Tts-2) 1 patch WEEKLY TD ; Start 05/13/20 at 09:00 Info (Anti-Coagulation Monitoring By Pharmacy) 1 each PRN DAILY PRN MC SEE COMMENTS; Start 05/07/20 at 09:45 Active Scripts Active Pantoprazole Sodium (Pantoprazole Sodium) 40 Mg Tablet.dr 40 Mg PO DAILYAC 30 Days Feosol (Ferrous Sulfate) 325 Mg Tablet 325 Mg PO BIDWMEALS 30 Days Lasix (Furosemide) 40 Mg Tablet 1 Tab PO DAILY 30 Days Glucophage Xr (Metformin Hcl) 500 Mg Tab.er.24h 1,000 Mg PO HS 30 Days Toprol Xl (Metoprolol Succinate) 50 Mg Tab.er.24h 75 Mg PO DAILY 30 Days Reported Aspirin 81 Mg Tab.chew 1 Tab PO DAILY Xarelto (Rivaroxaban) 20 Mg Tablet 1 Tab PO DAILY 30 Days with food Gabapentin 600 Mg Tablet 600 Mg PO HS Lantus (Insulin Glargine,Hum.rec.anlog) 100 Unit/1 Ml Vial 20 Unit SQ HS Benazepril Hcl 10 Mg Tablet 10 Mg PO DAILY Atorvastatin Calcium 40 Mg Tablet 80 Mg PO HS Humalog (Insulin Lispro) 100 Unit/1 Ml Cartridge 20 Unit SQ BIDAC Vitals/I & O Vital Sign - Last 24 Hours 05/06/20 05/06/20 05/06/20 05/06/20 11:39 14:35 15:00 15:27 Temp 97.3 97.3 Pulse 86 71 80 Resp 20 B/P (MAP) 179/94 202/97 200/107 (138) 144/73 (96) Pulse Ox 98 O2 Delivery Room Air 05/06/20 05/06/20 05/06/20 05/06/20 19:00 20:00 20:28 23:00 Temp 96.0 97.8 96.0 97.8 Pulse 73 79 81 Resp 24 15 B/P (MAP) 203/97 (132) 205/88 171/88 (115) Pulse Ox 96 95 O2 Delivery Room Air Room Air Room Air 05/07/20 05/07/20 05/07/20 05/07/20 03:00 03:59 07:57 08:15 Temp 98.0 98.3 98.0 98.3 Pulse 81 81 79 79 Resp 24 20 B/P (MAP) 205/96 (132) 205/96 227/98 (141) 227/98 Pulse Ox 96 98 O2 Delivery Room Air Room Air 05/07/20 05/07/20 08:16 10:13 Pulse 79 79 B/P (MAP) 227/98 227/98 Intake and Output 05/06/20 05/06/20 05/07/20 15:00 23:00 07:00 Intake Total 200 ml 700 ml 300 ml Balance 200 ml 700 ml 300 ml Justicifation of Admission Dx: Justifications for Admission: Justification of Admission Dx: Yes ALFONSO LAN MD May 07, 2020 11:38
[2020-05-07] MEDS ORDERED: LABETALOL 20 MG/4 ML DISP.SYRIN. IVP PRN (11:45)
--- NOTE | 2020-05-07 14:23 | PDOC2 ---
NIKKI JARVIS CAN DRYER 05/07/20 1423: CARDIAC CONSULT DATE OF CONSULT Date of Consult DATE: 05/07/20 TIME: 14:17 REASON FOR CONSULT Reason for Consult: Severe HTN REFERRING PHYSICIAN Referring Physician: Fullbright SOURCE Source: Chart review, Patient HISTORY OF PRESENT ILLNESS HISTORY OF PRESENT ILLNESS This is a pleasant 69 yo male admitted for complains GI symptoms. Reported nausea and vomiting and also diarrhea which has resolved since yesterday. He did not get tested yet for Cdiff but he did have antibiotic treatment due to tooth problem recently. Denies any chest pain or SOA. Reports no palpitations. He reports his BG and BP is controlled at home but as inpt it has been high. He has gained about 30 pounds in the last yr accdg to him. He said that he has been consistent with his DM diet. Consult is for high BP and his ACEi has been held due to renal insufficiency which resolved after IV hydration. No significant leg swelling, No PND or orthopnea. PAST MEDICAL HISTORY Past Medical History Cardiovascular: AFIB, CAD, CHF, HTN, Hyperlipidemia Pulmonary: No pertinent hx CENTRAL NERVOUS SYSTEM: DPN GI: No pertinent hx Heme/Onc: Fe def anemia Hepatobiliary: No pertinent hx Psych: No pertinent hx Musculoskeletal: Osteoarthritis Rheumatologic: No pertinent hx Infectious disease: No pertinent hx ENT: No pertinent hx Renal/: No pertinent hx Endocrine: No pertinent hx Dermatology: No pertinent hx PAST SURGICAL HISTORY Past Surgical History CABG, Tonsillectomy, Other (back surgery ) FAMILY HISTORY Family History: Heart Disease SOCIAL HISTORY Social History Smoke: Quit ALCOHOL: rare Drugs: None Lives: with Family CURRENT MEDICATIONS CURRENT MEDICATIONS Current Medications Medications (Trade) Dose Ordered Sig/Mega Route PRN Reason Start Time Stop Time Status Last Admin Dose Admin Atorvastatin Calcium (Lipitor) 80 mg HS PO 05/06/20 21:00 05/06/20 20:22 Ferrous Sulfate (Feosol) 325 mg BIDWMEALS PO 05/06/20 17:00 05/07/20 08:15 Rivaroxaban (Xarelto) 20 mg DAILY16 PO 05/06/20 16:00 05/06/20 16:59 ALLERGIES ALLERGIES: Coded Allergies: I S O L A T I O N *CONTACT* (Verified Allergy, Unknown, 02/27/16) mrsa No Known Medication Allergies (Verified Allergy, Unknown, 05/26/19) ROS Review of System 14 point ROS evaluated with pertinent positives noted per HPI PHYSICAL EXAM General: Alert, Oriented X3, Cooperative, No acute distress HEENT: Atraumatic, Mucous membr. moist/pink Lungs: Other (diminished bases) Heart: Other (AFIB rate controlled) Abdomen: Soft, No tenderness Extremities: No cyanosis, Other (trace to 1+ bilateral LE pitting edema) Skin: No breakdown, No significant lesion Neuro: Normal speech, Sensation intact Psych/Mental Status: Mental status NL, Mood NL MUSCULOSKELETAL: Osteoarthritic changes both hands VITALS/I&O VITALS/I&O: Vital Signs Date Time Temp Pulse Resp B/P (MAP) Pulse Ox O2 Delivery O2 Flow Rate FiO2 05/07/20 12:25 65 193/85 05/07/20 10:35 98.3 20 97 Room Air 98.3 I & O 05/06/20 05/06/20 05/07/20 15:00 23:00 07:00 Intake Total 200 ml 700 ml 300 ml Balance 200 ml 700 ml 300 ml LABS Lab: Laboratory Tests Test 05/06/20 14:25 05/06/20 16:08 05/06/20 20:26 05/07/20 04:26 Urine Collection Type Unknown Unknown Urine Color Yellow Yellow Urine Clarity Clear Clear Urine pH 5.5 (<5.0-8.0) 5.5 (<5.0-8.0) Urine Specific [place] 1.025 (1.000-1.030) 1.025 (1.000-1.030) Urine Protein 100 mg/dL (NEG-TRACE) 100 mg/dL (NEG-TRACE) Urine Glucose (UA) >=1000 mg/dL (NEG) 500 mg/dL (NEG) Urine Ketones (Stick) Negative mg/dL (NEG) Negative mg/dL (NEG) Urine Blood Negative (NEG) Small (NEG) Urine Nitrite Negative (NEG) Negative (NEG) Urine Bilirubin Small (NEG) Negative (NEG) Urine Urobilinogen Dipstick 1.0 mg/dL (0.2 mg/dL) 1.0 mg/dL (0.2 mg/dL) Urine Leukocyte Esterase Negative (NEG) Negative (NEG) Urine RBC Occ /HPF (0-2) 6-10 /HPF (0-2) Urine WBC Occ /HPF (0-4) Rare /HPF (0-4) Urine Squamous Epithelial Cells Few /LPF Few /LPF Urine Bacteria 0 /HPF (0-FEW) 0 /HPF (0-FEW) Urine Hyaline Casts Few /HPF Urine Mucus Slight /LPF Slight /LPF Urine Opiates Screen Neg (NEG) Urine Methadone Screen Neg (NEG) Urine Barbiturates Neg (NEG) Urine Phencyclidine Screen Neg (NEG) Urine Amphetamine/Methamphetamine Neg (NEG) Urine Benzodiazepines Screen Neg (NEG) Urine Cocaine Screen Neg (NEG) Urine Cannabinoids Screen Pos (NEG) Urine Ethyl Alcohol Neg (NEG) Glucose (Fingerstick) 296 mg/dL (70-99) H 265 mg/dL (70-99) H Test 05/07/20 07:37 05/07/20 09:20 05/07/20 11:17 Glucose (Fingerstick) 170 mg/dL (70-99) H 278 mg/dL (70-99) H White Blood Count 5.1 x10^3/uL (4.0-11.0) Red Blood Count 4.18 x10^6/uL (4.30-5.70) L Hemoglobin 10.8 g/dL (13.0-17.5) L Hematocrit 33.0 % (39.0-53.0) L Mean Corpuscular Volume 79 fL (79-100) Mean Corpuscular Hemoglobin 26 pg (25-35) Mean Corpuscular Hemoglobin Concent 33 g/dL (31-37) Red Cell Distribution Width 16.3 % (11.5-14.5) H Platelet Count 142 x10^3/uL (140-400) Neutrophils (%) (Auto) 78 % (31-73) H Lymphocytes (%) (Auto) 11 % (24-48) L Monocytes (%) (Auto) 6 % (0-9) Eosinophils (%) (Auto) 5 % (0-3) H Basophils (%) (Auto) 1 % (0-3) Neutrophils # (Auto) 4.0 x10^3/uL (1.8-7.7) Lymphocytes # (Auto) 0.5 x10^3/uL (1.0-4.8) L Monocytes # (Auto) 0.3 x10^3/uL (0.0-1.1) Eosinophils # (Auto) 0.3 x10^3/uL (0.0-0.7) Basophils # (Auto) 0.0 x10^3/uL (0.0-0.2) Sodium Level 143 mmol/L (136-145) Potassium Level 4.4 mmol/L (3.5-5.1) Chloride Level 108 mmol/L (98-107) H Carbon Dioxide Level 25 mmol/L (21-32) Anion Gap 10 (6-14) Blood Urea Nitrogen 19 mg/dL (8-26) Creatinine 1.2 mg/dL (0.7-1.3) Estimated GFR (Cockcroft-Gault) 60.0 BUN/Creatinine Ratio 16 (6-20) Glucose Level 306 mg/dL (70-99) H Calcium Level 8.3 mg/dL (8.5-10.1) L Total Bilirubin 0.7 mg/dL (0.2-1.0) Aspartate Amino Transferase (AST) 16 U/L (15-37) Alanine Aminotransferase (ALT) 15 U/L (16-63) L Alkaline Phosphatase 137 U/L (46-116) H Total Protein 6.4 g/dL (6.4-8.2) Albumin 3.0 g/dL (3.4-5.0) L Albumin/Globulin Ratio 0.9 (1.0-1.7) L Laboratory Tests 05/07/20 09:20 Laboratory Tests 05/07/20 09:20 ECHOCARDIOGRAM ECHOCARDIOGRAM <Conclusion> The left ventricle is normal size. Left ventricular systolic function is normal. The Ejection Fraction is 50-55%. There is mild concentric left ventricular hypertrophy. There is no significant aortic valvular stenosis. Doppler and Color Flow revealed trace aortic regurgitation. Doppler and Color-flow revealed trace mitral regurgitation. Doppler and Color Flow revealed mild tricuspid regurgitation with an estimated PAP of 42 mmHg. DATE: 11/21/18 1048 STRESS TEST STRESS TEST Conclusion 1. Regadenoson cardioisotope stress test showed small infarct involving the base to mid anterior wall without any ischemia. 2. Abnormal septal wall motion probably secondary to CABG. The ejection fraction is calculated at 45%. 3. Low risk for cardiac events. DATE: 11/21/18 1150 ASSESSMENT/PLAN ASSESSMENT/PLAN 1. Diarrhea/vomiting: GI following. S/S resolved 2. KELSI: due to volume depletion. Resolved after hydration 3. HTN urgency: missed ACEi contributing 4. DM2: Uncontrolled. A1C 9.7 5. Permanent AFIB: rate controlled 6. Chronic diastolic CHF: compensated 7. ICM; recovered with EF 50-55% 10/2018 8. CAD s/p CABG x3 2006 and PCI/stent in 2008, clinically stable 9. Hyperlipidemia; statin Recommendations 1. Continue metoprolol for rate control. Continue xarelto for stroke prevention 2. Restart lisinopril. Add norvasc. DC catapres. Continue po lasix. 3. May DC this evening if BP is controlled. Follow up in office on Jun 05 at 3 PM with TTE prior to visit 4. Discussed BID HBPM in the next week. TONYA SANTOYO MD 05/07/20 1650: CARDIAC CONSULT ASSESSMENT/PLAN ASSESSMENT/PLAN Patient seen and examined. Agree with above nurse practitioner note. Supportive care. Okay to discharge from a cardiac standpoint NIKKI JARVIS APRN May 07, 2020 14:23 TONYA SANTOYO MD May 07, 2020 16:50
[2020-05-07 15:17] VITALS: BP 188/79
[2020-05-07] MEDS: ANTI-COAG MONITOR BY PHARMACY. MC PRN ×2 (15:37→15:38)
[2020-05-07] MEDS ORDERED: LISINOPRIL 10 MG TABLET PO ONE (16:00)
[2020-05-07 16:17] VITALS: BP 188/79
[2020-05-07] MEDS: RIVAROXABAN 10 MG TABLET. PO SCH (16:17)
--- NOTE | 2020-05-07 16:56 | NUR ---
ROBERT following for discharge planning. SW spoke with RN and reviewed chart. Pt's diet advanced to ADS. Discharge plan remains home, self-care when stable. Addendum: 05/08/20 at 0912 by RONALDO JONES pt discharged home self-care with no further SW needs.
--- NOTE | 2020-05-07 17:34 | DISCH ---
DISCHARGE INSTRUCTIONS Condition on Discharge Condition on Discharge: Stable Activity After Discharge Activity Instructions for Disc: Activity as tolerated Bathing Instructions: Shower-keep dressing dry Lifting Instructions after Dis: No heavy lifting, No pulling or pushing, Do not lift >10 pounds Driving Instructions after Dis: Do not drive today Weight Bearing Status after Di: As tolerated Diet after Discharge Diet after Discharge: Regular Additional Diet Restrictions: resume home diet Diet Texture: Regular Liquid Texture: Thin Liquid Swallowing Supervision: None needed Wound Incision Care Wound/Incision Care: No wound care needed Checks after Discharge Checks after discharge: Check blood press - daily, Check blood sugar, ac/hs Contacting the DR. after DC Call your doctor for: Concerns you may have Follow-Up Follow up with: [facility] on 06/05 for checkup. Have to get an ECHO before Follow Up With: your primary care provider in 1-2 weeks Treatment/Equipment after DC Adaptive Equipment Issued: None Warfarin Follow-Up Warfarin Follow UP: SEE CARDIOLOGY SOON DIRECTED ALFONSO LAN MD May 07, 2020 17:34
[2020-05-08] MEDS ORDERED: LISINOPRIL 20 MG TABLET PO SCH (09:00)
[2020-05-13] MEDS ORDERED: cloNIDine TTS-2 1 PATCH PATCH TD SCH (09:00)
== END 2020-05-07 17:54 | disposition home or self-care (01) | DRG 391 ==
LOC: ER 22:07 → 6 SOUTH 05-06 00:28
PROVIDERS: ADMIT Family Medicine; ATTEND Family Medicine
DX: A09 Infectious gastroenteritis and colitis, unspecified (principal); N17.0 Acute kidney failure with tubular necrosis; I48.21 Permanent atrial fibrillation; I50.32 Chronic diastolic (congestive) heart failure; D68.9 Coagulation defect, unspecified; D64.9 Anemia, unspecified; E11.65 Type 2 diabetes mellitus with hyperglycemia; E78.00 Pure hypercholesterolemia, unspecified; E78.5 Hyperlipidemia, unspecified; E86.9 Volume depletion, unspecified; I11.0 Hypertensive heart disease with heart failure; I16.0 Hypertensive urgency; I25.10 Atherosclerotic heart disease of native coronary artery without angina pectoris; K21.9 Gastro-esophageal reflux disease without esophagitis; M19.90 Unspecified osteoarthritis, unspecified site; D50.9 Iron deficiency anemia, unspecified; I25.5 Ischemic cardiomyopathy; Z20.822 Contact with and (suspected) exposure to COVID-19; Z79.4 Long term (current) use of insulin; Z82.49 Family history of ischemic heart disease and other diseases of the circulatory system; Z87.891 Personal history of nicotine dependence; Z95.1 Presence of aortocoronary bypass graft; Z95.5 Presence of coronary angioplasty implant and graft; Z91.041 Radiographic dye allergy status
CPT/HCPCS: 36415; 74022; 80048; 80053; 80307; 81001; 82962; 83036; 83690; 83735; 83880; 84443; 84484; 85025; 85610; 87040; 87505; 93005; 96361; 96374; 96375; 99285; G0480; J1815; J2765; J3490; J7030; U0003; G0378

== ENCOUNTER → 2021-02-12 | Outpatient (CLI) | payer MEDICARE ==
[~2021-02-12] MED LIST changes: -CLIN150C15 PO; +CLIN150C16 PO
--- NOTE | 2021-02-12 11:19 | CARD ---
MR#: [id number] Date of Study: 02/12/2021 Ordering Physician: TONYA SANTOYO, Referring Physician: TONYA SANTOYO, Tech: Savana Moreno, [facility] APPROVED REPORT EXAM: Two-dimensional and M-mode echocardiogram with Doppler and color Doppler. Other Information Quality : AverageHR: 98bpm INDICATION Atrial Fibrillation Cardiomyopathy Surgery/Intervention CABG: Date: 2006 Site: [place] RISK FACTORS Hypertension Hyperlipidemia Diabetes 2D DIMENSIONS RVDd4.1 (2.9-3.5cm)Left Atrium(2D)3.9 (1.6-4.0cm) IVSd1.2 (0.7-1.1cm)Aortic Root(2D)3.1 (2.0-3.7cm) LVDd3.3 (3.9-5.9cm)LVOT Diameter2.1 (1.8-2.4cm) LVDs3.5 (2.5-4.0cm)FS (%) 3.4 % SV3.9 ml Aortic Valve AoV Peak Bossman.164.8cm/sAoV VTI28.8cm AO Peak GR.10.9mmHgLVOT Peak Bossman.115.1cm/s LVOT VTI 22.18cmAO Mean GR.6mmHg HUMZA (VMAX)1.07un5NJF (VTI)2.64cm2 Mitral Valve MV E Lgmeiddi081.4cm/sMV DECEL DYVX138kd MV A Fmaayiew43.9cm/sMV E Mean Gr.2mmHg MV [id number]/A Ratio1.4 MVA (PHT)4.26cm2 TDI E/Lateral E'12.1E/Medial E'19.7 Pulmonary Valve PV Peak Wfharmid84.1cm/sPV Peak Grad.4mmHg Tricuspid Valve TR P. [id number]/sTR Peak Gr.34mmHg LEFT VENTRICLE The left ventricle is normal size. Proximal septal thickening is noted. The left ventricular systolic function is normal. LV ejection fraction is 50-55% There is normal LV segmental wall motion. Tissue Doppler imaging reveals moderate left ventricular diastolic dysfunction. RIGHT VENTRICLE The right ventricle is mildly dilated. There is normal right ventricular wall thickness. The right ve ntricular systolic function is normal. ATRIA The left atrium is mildly dilated. The right atrium is mildly dilated. The interatrial septum is inta ct with no evidence for an atrial septal defect or patent foramen ovale as noted on 2-D or Doppler im aging. AORTIC VALVE The aortic valve is thickened but opens well. Doppler and Color Flow revealed no significant aortic r egurgitation. There is no significant aortic valvular stenosis. Calculated aortic valve area is 1.89 cm2 with maximum pressure gradient of 16 mmHg and mean pressure gradient of 8 mmHg. MITRAL VALVE The mitral valve is normal in structure and function. There is no evidence of mitral valve prolapse. There is no mitral valve stenosis. Doppler and Color-flow revealed trace mitral regurgitation. TRICUSPID VALVE The tricuspid valve is normal in structure and function. Doppler and Color Flow revealed trace tricus pid regurgitation. There is no tricuspid valve stenosis. PULMONIC VALVE The pulmonary valve is normal in structure and function. Doppler and Color Flow revealed trace pulmon ic valvular regurgitation. GREAT VESSELS The aortic root is normal in size. The IVC is normal in size and collapses >50% with inspiration. PERICARDIAL EFFUSION There is no evidence of significant pericardial effusion. Critical Notification Critical Value: No <Conclusion> The left ventricle is normal size. The left ventricular systolic function is normal. LV ejection fraction is 50-55% Proximal septal thickening is noted. Doppler and Color Flow revealed no significant aortic regurgitation. There is no significant aortic valvular stenosis. Doppler and Color-flow revealed trace mitral regurgitation. Doppler and Color Flow revealed trace tricuspid regurgitation. Signed by : Westley Gandhi MD Electronically Approved : 02/12/2021 11:18:58
== END ==
LOC: ECHO 09:51
PROVIDERS: ATTEND Internal Medicine Cardiovascular Disease
DX: I12.9 Hypertensive chronic kidney disease with stage 1 through stage 4 chronic kidney disease, or unspecified chronic kidney disease (principal); I50.9 Heart failure, unspecified; I25.5 Ischemic cardiomyopathy; I48.20 Chronic atrial fibrillation, unspecified; E78.2 Mixed hyperlipidemia
CPT/HCPCS: 93306

== ENCOUNTER 2021-04-10 07:17 | Outpatient (CLI) | payer MEDICARE ==
[2021-04-10] VITALS (16 sets, daily range): BP systolic 154–196; BP diastolic 77–103
[~2021-04-10] VITALS: Ht 180.3 cm; Wt 94.5 kg
[~2021-04-10 07:17] MED LIST changes: +CYCL10TA19 PO; -CYCL10TA2 PO
[2021-04-10] MEDS ORDERED: HEPARIN for ARTERIAL LINE 1,500 ML ONE (07:55)
[2021-04-10] MEDS ORDERED: LIDOCAINE 1% Multi-Dose 20 ML VIAL. ONE (07:55)
[2021-04-10] MEDS ORDERED: IODIXANOL 320 MG/ML 100 ML VIAL. ONE (07:55)
[2021-04-10 07:59] LABS: HEMATOCRIT 38.7 % (39.0-53.0); HEMOGLOBIN 12.7 g/dL (13.0-17.5); RED BLOOD COUNT 4.7 x10^6/uL (4.30-5.70); RED CELL DISTRIBUTION WIDTH 19.1 % (11.5-14.5); WHITE BLOOD COUNT 4.9 x10^3/uL (4.0-11.0)
[2021-04-10 08:08] LABS: CALCIUM 8.8 mg/dL (8.5-10.1); CREATININE 1.2 mg/dL (0.7-1.3); GFR 59.9; POTASSIUM 3.9 mmol/L (3.5-5.1)
[2021-04-10 08:16] LABS: PROTHROMBIN TIME PATIENT 18.1 SEC (11.7-14.0)
[2021-04-10] MEDS ORDERED: BUME2TAB3 PO (08:20)
[2021-04-10] MEDS ORDERED: fentaNYL PF VIAL 100 MCG/2 ML VIAL ONE (08:37)
[2021-04-10] MEDS ORDERED: MIDAZOLAM HCL/PF 2 MG/2 ML VIAL. ONE (08:38)
[2021-04-10] MEDS ORDERED: MIDAZOLAM HCL/PF 2 MG/2 ML VIAL. IV ONE (09:15)
[2021-04-10] MEDS ORDERED: IODIXANOL 320 MG/ML 100 ML VIAL. IART ONE (09:15)
[2021-04-10] MEDS ORDERED: LIDOCAINE 1% Multi-Dose 20 ML VIAL. INJ ONE (09:15)
[2021-04-10] MEDS ORDERED: fentaNYL PF VIAL 100 MCG/2 ML VIAL IV ONE (09:15)
--- NOTE | 2021-04-10 10:24 | CARD ---
MR#: [id number] Date of Study: 04/10/2021 Ordering Physician: TONYA GARAY, Referring Physician: TONYA GARAY, Tech: RT Lincoln(R) APPROVED REPORT Technologist: Alicia Alvarez RT(R) Nurse: Dina Clark RN Procedure(s) performed: MODERATE SEDATION TIME: 64 MINUTES FLUORO TIME: 8.1 MIN DOSE: 110 GYCM2 CONTRAST: 104CC VISI LHC, RHC, Coronary angiography, Bypass Angiography (CPT 71579-08) Ultrasound guided common femoral artery and vein access (CPT 53243-26) INDICATION The indication(s) include : unstable angina , dyspnea. [facility] [place] Clinical Frailty Scale [facility] [place] Clinical Frailty Scale: Moderately Frail Heart Failure Heart Failure: Yes If Yes, Newly Diagnosed: No If Yes, HF Type: Diastolic If Yes, NYHA Class: Class III CASE TECHNIQUE IV conscious sedation was used throughout procedure with appropriate monitoring and was performed in the presence of a registered nurse who was an independent trained observer other than the physician p erforming the procedure. During this case, Fluoroscopy and low osmolar contrast were used for imaging . Specimen(s) Removed: N/A Estimated Blood loss: 30 cc's. PROCEDURE NARRATIVE Procedure details: 70-year-old male with past medical history of mixed ischemic cardiomyopathy, mild systolic and diasto lic heart failure who presented to the office with worsening dyspnea, intermittent chest discomfort a nd most importantly bilateral lower extremity edema. A decision was made to proceed with right and l eft heart catheterization for further evaluation. Procedure details: After proper informed consent the right groin was prepped and draped in usual sterile fashion. Under fluoroscopic and ultrasound guidance a 5 Swiss sheath was placed in the right common femoral artery and vein. Next, a 5 Swiss PA catheter was advanced to the right heart chambers and pressures and saturations w ere obtained. Next diagnostic angiography was performed with a 5 Swiss JL4, JR4, RCB and MAAME cathet ers. Findings: Aorta 160/80 RA 14 mmHg RV 66/4/13 PA 62/25/41 Wedge 22 PA sat 68% FA sat 96% Kash cardiac output 5.3 L/min Kash cardiac index: 2.5 Coronary angiography: Left main is a large-caliber vessel with mild luminal irregularities LAD is a moderate to large caliber vessel with a proximal 90% stenosis. The distal vessel seen to fi ll via a MAAME graft. D1 is a small caliber vessel with a mid 50% stenosis Ramus is a moderate caliber vessel with a proximal 100% occlusion. The mid and distal vessel is seen to fill via a left radial graft. Left circumflex is a small caliber nondominant vessel with a proximal 100% occlusion RCA is a large caliber dominant vessel with a proximal 100% occlusion. The mid and distal vessel see n to fill via a saphenous vein graft. RPDA is a small to moderate caliber vessel with moderate diffuse disease of up to 70% RPL is a large-caliber vessel with mild luminal irregularities in the proximal segment and a more [place] 90% stenosis in a small caliber portion of the vessel. Bypass angiography: FARR to the LAD is widely patent without anastomotic stenosis Radial graft to the ramus is widely patent without anastomotic stenosis Saphenous vein graft to the RCA is widely patent without anastomotic stenosis At case completion the sheaths were removed and hemostasis was achieved via manual compression. No acute complications. Conclusion 1. Biventricular pressure overload 2. Secondary pulmonary hypertension, mean PA 41 mmHg 3. Normal cardiac output 4. Three-vessel coronary artery disease with 3 of 3 bypass grafts patent and distal small vessel sylvia daljit coronary artery disease Recommendations 1. We will continue optimization of his medical therapy. Add spironolactone to his diuretic regimen . 2. Repeat labs in 2 weeks. 3. Defer intervention of distal small vessel disease of the right coronary artery given that the dilip n issue appears to be cor pulmonale and right-sided heart failure symptoms. We will continue aggress daljit medical therapy. Signed by : Tonya Garay, Electronically Approved : 04/10/2021 10:24:41
--- NOTE | 2021-04-10 10:26 | PDOC ---
MODERATE SEDATION ASSESSMENT RISKS/ALTERNATIVES Risks/Alternatives Risks and alternatives of this type of sedation and procedure discussed with: RISK/ALTERNATIVES: Patient H & P ON CHART H & P H & P on chart and reviewed for co-morbid conditions and appropriate labs. H&P ON CHART: Yes STATUS PREG STATUS ASSESSED: No MEDS/ALLERGIES REVIEWED Meds/Allergies Reviewed Medications and Allergies including time and route of recently administered narcotics and sedatives. MEDS/ALLERGIES REVIEWED: Yes ASA RATING ASA RATING: II AIRWAY ASSESSMENT Airway Assessment Airway patency, oral function limitations, presence of caps, crowns, dentures, partials, and ability to extend neck assessed. AIRWAY ASSESSMENT: Yes MALLAMPATI SCORE MALLAMPATI SCORE: II PRE-SEDATION ASSESSMENT PRE-SEDATION ASSESSMENT: Yes TONYA SANTOYO MD Apr 10, 2021 10:26
[2021-04-10] MEDS ORDERED: GABAPENTIN 300 MG CAPSULE. PO ONE (11:45)
[2021-04-10] MEDS ORDERED: LISINOPRIL 10 MG TABLET PO ONE (11:45)
[2021-04-10] MEDS ORDERED: METOPROLOL TART IMMED RELEASE 25 MG TABLET. PO ONE (11:45)
[2021-04-10] MEDS ORDERED: SPIRONOLACTONE 25 MG TABLET PO SCH (13:27)
[2021-04-10] MEDS ORDERED: SPIR25TA5 PO (13:42)
--- NOTE | 2021-04-10 15:01 | NUR ---
Discharge Note: NUPUR BARR ECCLiborio Discharge instructions and discharge home medications reviewed with Patient and a copy given. All questions have been answered and understanding verbalized. The following instructions and handouts were given: Groin site care and adult moderate sedation Discontinued lines and drains: Peripheral IV intact. Patient discharged to Home or Self Care with Spouse via Wheelchair.
== END 2021-04-10 15:15 | disposition home or self-care (01) ==
LOC: CCL 07:17
PROVIDERS: ATTEND Internal Medicine Cardiovascular Disease
DX: I25.110 Atherosclerotic heart disease of native coronary artery with unstable angina pectoris (principal); I25.5 Ischemic cardiomyopathy; R06.09 Other forms of dyspnea; I11.0 Hypertensive heart disease with heart failure; I50.40 Unspecified combined systolic (congestive) and diastolic (congestive) heart failure; R60.0 Localized edema; I48.91 Unspecified atrial fibrillation; E78.00 Pure hypercholesterolemia, unspecified; E11.9 Type 2 diabetes mellitus without complications; K21.9 Gastro-esophageal reflux disease without esophagitis; Z87.891 Personal history of nicotine dependence; Z79.4 Long term (current) use of insulin; Z79.899 Other long term (current) drug therapy; Z98.890 Other specified postprocedural states; Z82.49 Family history of ischemic heart disease and other diseases of the circulatory system; Z83.3 Family history of diabetes mellitus; Z20.822 Contact with and (suspected) exposure to COVID-19
CPT/HCPCS: 36415; 76937; 80048; 83880; 85027; 85610; 87426; 93461; 99152; 99153; C1769; C1773; C1894; J1644; J2250; J3010; J3490; Q9967